=== PATIENT | male | born 1950 | race Caucasian/White ===

== ENCOUNTER 2016-11-08 13:43 | Inpatient (IN) ==
--- NOTE | 2016-11-08 14:08 | Emergency Department Note ---
Disposition Clinical Impression: Paroxysmal atrial flutter Chest pain Qualifiers: Chest pain type: unspecified Qualified Code(s): R07.9 - Chest pain, unspecified Disposition: Admitted As Inpatient Condition: Fair Forms: ED Satisfaction Letter Time of Disposition: 17:44 Chest Pain HPI - General Chief Complaint: ED Chest Pain Stated Complaint: chest pain Time Seen by Provider: 11/08/16 13:46 Source: patient, EMS Limitations: no limitations Vital Signs Reviewed: Yes Nursing Notes Reviewed: Yes - History of Present Illness HPI Narrative: 66-year-old male with a history of A. fib, esophageal cancer, liver cancer who presents from the [facility] for evaluation of atrial flutter with a rapid rate that they were unable to control with metoprolol. Patient states that his chest pain began yesterday it is left-sided and radiates up into his neck. He states that today he developed a racing heart and feeling that his heart was pounding in his neck. This is accompanied by mild shortness of breath and nausea. He denies fevers, chills, abdominal pain, leg swelling, sloan or dizziness. The patient does state he is receiving oral chemotherapy. He does have a port in the upper left chest. Severity scale (1-10): 7 - Related Data Home Medications Medication Instructions Recorded Confirmed Albuterol Sulfate 2.5 mg IH QID PRN 05/19/15 01/25/16 Budesonide/Formoterol Fumarate 2 puff IH BID 05/19/15 01/25/16 [Symbicort 160-4.5 Mcg Inhaler] Bupropion HCl [Bupropion HCl Sr] 150 mg PO BID 05/19/15 01/25/16 FentaNYL PATCH [Duragesic] 50 mcg TD Q72H 05/19/15 01/25/16 Ferrous Sulfate 325 mg PO BID 05/19/15 01/25/16 GlipiZIDE [Glucotrol] 10 mg PO BID 05/19/15 01/25/16 Isosorbide MONOnitrate (24 HR) 15 mg PO DAILY 05/19/15 01/25/16 [Imdur] Lisinopril [Zestril] 40 mg PO DAILY 05/19/15 01/25/16 Nitroglycerin [Nitrostat] 0.4 mg SL AD PRN 05/19/15 01/25/16 Potassium Chloride 10 meq PO DAILY 05/19/15 01/25/16 Rivaroxaban [Xarelto] 20 mg PO DAILY 05/19/15 01/25/16 Rosuvastatin Calcium [Crestor] 40 mg PO DAILY 05/19/15 01/25/16 Zolpidem Tartrate [Ambien] 5 mg PO HS 05/19/15 01/25/16 Albuterol Sulfate [Albuterol 2 puff IH QID PRN 11/06/15 01/25/16 Inhaler] Bisacodyl [Woman's Laxative] 20 mg PO BID 11/06/15 01/25/16 CarBAMazepine 100 mg PO TID 11/06/15 01/25/16 Cholecalciferol (D-3) [Vitamin D] 2,000 unit PO DAILY 11/06/15 01/25/16 Cyanocobalamin (B-12) [Vitamin B12] 1,000 mcg PO DAILY 11/06/15 01/25/16 Docusate Sodium [Colace] 200 mg PO BID 11/06/15 01/25/16 HydrOXYzine Pamoate 25 mg PO BID PRN 11/06/15 01/25/16 HydrOXYzine Pamoate 50 mg PO HS PRN 11/06/15 01/25/16 Tiotropium [Spiriva] 18 mcg IH DAILY 11/06/15 01/25/16 Amiodarone [Cordarone] 200 mg PO BID 01/25/16 01/25/16 Omeprazole [PriLOSEC] 20 mg PO BIDAC 01/25/16 01/25/16 Ondansetron ODT [Zofran ODT] 8 mg PO Q6H PRN 01/25/16 01/25/16 Previous Rx's Medication Instructions Recorded Capecitabine [Xeloda] 1,000 mg PO BID #56 tablet 08/22/15 Folic Acid 1 mg PO DAILY #30 tablet 10/05/15 Multivit/Ca/Min/Fe/FA [Thera M 1 tab PO DAILY tablet 10/05/15 Plus] Metoprolol XL (24 HR) Succ [Toprol 50 mg PO DAILY tab.er.24h 11/10/15 Xl] Capecitabine [Xeloda] 2 tab PO BID #56 tablet 02/09/16 Dicyclomine HCl [Bentyl] 20 mg PO BID #30 tablet 07/24/16 Hydrocodone/Acetaminophen [Penryn 1 each PO Q6HR #10 tablet 07/24/16 5-325 Tablet] Ondansetron HCl [Zofran] 4 mg PO Q6HR PRN #10 tablet 07/24/16 Allergies Allergy/AdvReac Type Severity Reaction Status Date / Time aspirin Allergy Gastrointestinal Verified 01/25/16 08:03 Upset All systems ED: reviewed and negative except as stated. Chest Pain PMH - Past Medical History Medical history: Reports: aortic aneurysm, atrial fibrillation, cancer, COPD, coronary artery disease, diabetes, GERD, hyperlipidemia, hypertension, myocardial infarction, thyroid disease Surgical history: Reports: cholecystectomy Psychiatric history: Reports: anxiety, depression - Social History Smoking Status: Current every day smoker Alcohol use: Reports: occasionally Drug use: Reports: none Physical Exam General: Alert and in no acute distress Skin: Warm, dry, intact Head: Normocephalic and atraumatic Eye: PERRLA, EOMI Neck: Supple, trachea midline and no tenderness Cardiovascular:Tachycardia, no murmur, normal perfusion, peripheral pulses equal b/l UE/LE Respiratory: mild diffuce expiratory wheezing, no respiratory distress Musculoskeletal: no calf tenderness, swelling or deformity GI: Soft, nontender, nondistended. Bowel sounds present Neuro: A&O to person, place, time and situation. No focal deficits noted on exam Psychiatric: Cooperative and appropriate mood and affect - General Limitations: no limitations General appearance: alert, in no apparent distress Course Course Narrative: 66-year-old male with a history of A. fib, [facility] complaint of chest pain and shortness of breath today. He states this morning the symptoms worsened and he developed palpitations and feeling that his neck was pounding. He states that his chest pain is on the left side and radiating to his neck. He has associated shortness of breath. Patient was evaluated at the [facility] and provided with 500 mL of normal saline and 5mg metoprolol IV. They were unable to successfully control his rate and transferred him to our emergency department for continued care. EKG shows atrial flutter with tachycardia. It is unchanged from his previous. He reports a history of A. fib and has had to be admitted in the past for rate control. He states the last time was a few years ago. He is currently getting oral chemotherapy. He does have a port in the left upper chest. On exam the patient does not appear to be in any acute distress he does have diffuse expiratory wheezing and his rate is tachycardic. With his history of cancer and A. fib along with his shortness of breath we will do a CTA to r/o PE. Labs done at the [facility] showed a creatinine of 1.22 with a GFR greater than 60. CTA negative for PE. Patient states that he is feeling better, but has episodes of palpitations. He states that he continue to cough. Discussed admission with the patient. Discussed admission with Zahira White CNP with hospitalist service who has accepted the patient for admission. I discussed the pending admission with the patient who states understanding and agreement with this plan. - Consultations Consultation #1: Discussed admission with Zahira White CNP with the Hospitalist service who has accepted the patient for admission. Time: 17:38 Vital Signs Temperature 97.6 F 11/08/16 13:44 Pulse Rate 69 11/08/16 13:44 Respiratory Rate 16 11/08/16 13:44 Blood Pressure 132/81 11/08/16 13:44 O2 Sat by Pulse Oximetry 99 11/08/16 13:44 Temperature 97.6 F 11/08/16 13:44 Pulse Rate 71 11/08/16 17:32 Respiratory Rate 18 11/08/16 17:32 Blood Pressure 144/86 11/08/16 17:32 O2 Sat by Pulse Oximetry 98 11/08/16 17:32 Oxygen Delivery Oxygen Delivery Nasal Cannula Chest Pain - Medical Records Medical records reviewed: Yes I reviewed the patient's medical records. - Lab Data Lab results reviewed: Yes I reviewed the patient's lab results. Lab results narrative: Labs from the [facility]: Troponin: 0.01 pro-BNP: 1576 Creatinine: 1.22 GFR: >60 PTT: 31.4 PT: 13.5 INR: 1.4 D dimer: 0.80 WBC: 6.3 RBC: 4.02 HGB: 15.5 HCT: 43.6 PLT: 145 - Radiology Data Radiology results reviewed: Yes I reviewed the patient's radiology results. Chest CTA 11/08/16 14:01 IMPRESSION: No pulmonary embolus is identified. No acute cardiopulmonary disease. 3 mm nodule in the right upper lobe is stable and considered benign. No suspicious nodules are appreciated. Stable 4.6 cm left thyroid nodule in a 2 year interval. It is likely benign, based on the stability. Characterization by ultrasound is suggested, per guidelines, provided below for reference. Managing Incidental Thyroid Nodule Detected at CT or MRI or US No Suspicious Findings Age > or equal to 35 years <1.5 cm - no further evaluation > or equal to 1.5 cm - thyroid ultrasound Vivi et al. Managing Incidental Thyroid Nodules Detected on Imaging: White Paper of the ACR Incidental Thyroid Findings Committee. JACR Volume 12, Number 2, November 2014 D/ / Tristin Conklin MD / Tristin Conklin MD Interpreting Provider: Tristin Conklin MD - EKG Data EKG attestation: Yes I reviewed and interpreted this EKG. Rate: tachycardia Rhythm: A. flutter Interpretation: unchanged when compared to prior tracing (date) (06/05/16)
[2016-11-08] MEDS ORDERED: Naloxone 0.4 MG/ML INJ IVP PRN (20:08)
[2016-11-08] MEDS ORDERED: Loratadine 10 MG TABLET PO PRN (20:13)
[2016-11-08] MEDS ORDERED: Nitroglycerin 0.4 MG TAB.SUBL SL PRN (20:13)
[2016-11-08] MEDS ORDERED: *HR* Dextrose 50 % in Water (Syg) 50 ML SYRINGE IVP PRN (20:19)
[2016-11-08] MEDS ORDERED: Dextrose Gel 15 GM PO PRN ×2 (20:19)
[2016-11-08] MEDS ORDERED: D5% in Water 1,000 ML IV PRN (20:19)
[2016-11-08] MEDS ORDERED: Albuterol 2.5 MG/3 ML NEBULIZER IH PRN (20:21)
--- NOTE | 2016-11-08 20:38 | Internal Med History&Physical ---
Date of Encounter: 11/08/16 Time of Encounter: 20:27 Assessment and Plan (1) Atrial fibrillation with RVR Current visit: No Status: Acute Patient has history of Afib, and is maintained on metoprolol for rate control and on Xarelto for anticoagulation. Patient presented to [facility] with HR in 150s. Rate has come down with administration of IV metoprolol and is now controlled in the 70s. Continuous equipment monitor phototypesetting Continue home dose of xarelto Increase Metoprolol to 100mg daily Echocardiogram in the morning Consult cardiology (2) Chest pain Current visit: No Status: Acute Patient with chest pain since last evening. He was found to be in Afib/ aflutter with RVT and HR in the 150s, now improved after IV metoprolol. EKG showed no changes since previous EKG. Initial troponin negative at 0.01. BNP elevated. Serial troponins Continuous equipment monitor phototypesetting Echocardiogram in the morning. Cardiology consulted. Qualifiers: Chest pain type: precordial pain Qualified Code(s): R07.2 - Precordial pain (3) Type 2 diabetes mellitus Current visit: Yes Status: Chronic diabetic diet check blood sugar ACHS Sliding scale correction dose insulin hypoglycemic protocol. Qualifiers: Diabetes mellitus complication status: without complication Diabetes mellitus oil heaterman insulin use: without nursing home use Qualified Code(s): E11.9 - Type 2 diabetes mellitus without complications (4) COPD (chronic obstructive pulmonary disease) Current visit: No Status: Chronic Patient with history of COPD. Reports new cough starting last night productive of thick sputum, and some shortness of breath. He is satting 98-99% on 2L. He does not wear oxygen at home. CTA showed no focal airspace disease or pleural effusion Duoneb treatments QIDR Albuterol nebulizer Q2hr PRN titrate oxygen to maintain oxygen saturation > 92%. Qualifiers: COPD type: chronic bronchitis Chronic bronchitis type: unspecified Qualified Code(s): J42 - Unspecified chronic bronchitis (5) DVT prophylaxis Current visit: No Status: Chronic Encourage ambulation anti-embolic stockings Patient on Xarelto for Afib anticoagulation, no need for additional pharmacologic prophylaxis. Internal Medicine - H&P: HPI Chief complaint: chest pain, fast HR Admitted From: Emergency Dept Plans for Post Hospital Care: Home History of present illness: Mr. Zapata is a 66 year old male with aortic aneurysm, COPD, type 2 diabetes, hypertension, hyperlipidemia, Liver and esophageal cancer (reportedly in remission), and Afib who presented to the [facility] with chest pain that started yesterday. He reported the chest pain is located on the left side of his chest and ran from mid abdomen all the way up to his left neck. He also developed a cough last evening productive of thick sputum, and reports some occasional shortness of breath. He reports he had an episode of lightheadedness and diaphoresis this morning that lasted a couple minutes. He also endorses feeling generalized weakness. He was found to be in Aflutter with RVR and heart rate in the 150s at the [facility]. He was given IV metoprolol and his rate came down to 70s. EKG showed no changed from previous EKG in May. Troponin was negative at 0.01. He was transferred to [facility]. A CT PE was performed due to patient's new cough and shortness of breath, but it was negative for PE. On exam, patient is alert and oriented, in no distress. He denies any current chest pain. Heart is irregular, with controlled rate in 70s. Lungs have expiratory wheeze. Past Med Surg Social Fam HX - Past Medical History Medical history: aortic aneurysm, atrial fibrillation, cancer, COPD, coronary artery disease, diabetes, GERD, hyperlipidemia, hypertension, myocardial infarction, thyroid disease Psychiatric history: anxiety, depression - Past Surgical History Surgical History: cholecystectomy, orthopedic, other (carpal tunnel) - Social History Smoking Status: Current every day smoker (50 pack year history) Packs per day: 1 Smokeless Tobacco Status: No Alcohol use: occasionally Drug use: none - Family History Mother Living Status: Age at : 78 Cause of : diabetis Hx Family Endocrine Disorder: Yes Father Adopted: No Living Status: Age at : 80 Hx Family Cardiac Disorders: Yes Hx Family Respiratory Disorders: Yes Hx Family Cancer: Yes (Lung, Breast, Reproductive Cancer) Hx Family GI Disorders: No Hx Family Endocrine Disorder: Yes Hx Family Neuromuscular Disorders: No Hx Family Neurologic Disorders: No Hx Family HEENT Disorders: No Hx Family Autoimmune Disorders: No Internal Medicine - H&P: Meds Albuterol Sulfate 2.5 mg IH QID PRN 05/19/15 [History] Bupropion HCl [Bupropion HCl Sr] 150 mg PO BID 05/19/15 [History] Ferrous Sulfate 325 mg PO BID 05/19/15 [History] GlipiZIDE [Glucotrol] 10 mg PO BID 05/19/15 [History] Isosorbide MONOnitrate (24 HR) [Imdur] 15 mg PO DAILY 05/19/15 [History] Nitroglycerin [Nitrostat] 0.4 mg SL Q5M PRN 05/19/15 [History] Potassium Chloride 10 meq PO DAILY 05/19/15 [History] Rivaroxaban [Xarelto] 20 mg PO DAILY 05/19/15 [History] Zolpidem Tartrate [Ambien] 5 mg PO HS PRN 05/19/15 [History] Capecitabine [Xeloda] 1,000 mg PO BID #56 tablet 08/22/15 [Rx] Albuterol Sulfate [Albuterol Inhaler] 2 puff IH QID PRN 11/06/15 [History] Cholecalciferol (D-3) [Vitamin D] 2,000 unit PO DAILY 11/06/15 [History] Docusate Sodium [Colace] 200 mg PO BID 11/06/15 [History] Metoprolol XL (24 HR) Succ [Toprol Xl] 50 mg PO DAILY tab.er.24h 11/10/15 [Rx] Omeprazole [PriLOSEC] 20 mg PO DAILY PRN 01/25/16 [History] Acetaminophen [Tylenol] 1,000 mg PO DAILY PRN 11/08/16 [History] Alendronate Sodium [Fosamax] 70 mg PO QWEEK 11/08/16 [History] Aspirin 81 mg PO DAILY 11/08/16 [History] Bisacodyl [Dulcolax] 30 mg PO QPM PRN 11/08/16 [History] Calcium Carbonate/Vitamin D3 [Calcium 500-Vit D3 200 Tablet] 1 each PO BID 11/08 [History] Carboxymethylcellulose Sodium [Refresh Liquigel] 1 drop BOTH EYES TID 11/08/16 [ History] Cetirizine HCl [Zyrtec] 10 mg PO DAILY PRN 11/08/16 [History] Finasteride [Proscar] 5 mg PO DAILY 11/08/16 [History] Heparin Sodium,Porcine/PF [Heparin Lock Flush 100 Unit/ml] 500 unit IVP QMONTH 11/08/16 [History] Ketoconazole 2% CRM [Nizoral Cream] 1 appl TP BID PRN 11/08/16 [History] Lidocaine Patch [Lidoderm 5% patch] 1 each TP DAILY PRN 11/08/16 [History] Lisinopril 2.5 mg PO BID 11/08/16 [History] Methocarbamol [Robaxin] 750 mg PO QID PRN 11/08/16 [History] Ondansetron HCl [Zofran] 8 mg PO BID PRN 11/08/16 [History] Rosuvastatin Calcium [Crestor] 10 mg PO DAILY 11/08/16 [History] Saliva Substitute Combo No.3 [Aquoral] 3 - 5 spray MM DAILY PRN 11/08/16 [ History] Tamsulosin [Flomax] 0.4 mg PO DAILY 11/08/16 [History] Allergies aspirin Allergy (Verified 01/25/16 08:03) Gastrointestinal Upset dofetilide [From Tikosyn] Adverse Reaction (Verified 11/08/16 18:46) Unknown Per [facility] med list All Systems PM: A 10-system review of systems was performed and is negative for pertinent findings except as documented above in the HPI. - Constitutional Constitutional: no chills, no fever(s), no night sweats - EENT Eyes: discharge (watery), no change in vision, no pain, no photophobia Ears: no ear discharge, no ear pain, no tinnitus Nose, mouth and throat: nasal discharge, no dysphagia, no neck pain, no sore throat - Cardiovascular Cardiovascular ROS IM: chest pain, diaphoresis, dyspnea, dyspnea on exertion, lightheadedness, no palpitations, no syncope - Respiratory Respiratory: cough, dyspnea, dyspnea on exertion, no wheezing, no excessive phlegm production - Gastrointestinal Gastrointestinal: no abdominal pain, no diarrhea, no hematemesis, no hematochezia, no melena, no nausea, no vomiting - Musculoskeletal Musculoskeletal ROS IM: no numbness, no tingling - Integumentary Integumentary IM: no rash, no unusual bruising - Neurological Neurological ROS: no confusion, no convulsions, no focal weakness, no numbness, no tingling, no tremor(s) - Hematologic/Lymphatic Hematologic/Lymphatic: no easy bruising - Constitutional Vitals: Temp Pulse Resp BP Pulse Ox 998.1 F H 69 22 137/72 98 11/08/16 19:23 11/08/16 19:23 11/08/16 19:23 11/08/16 19:23 11/08/16 19:23 General appearance: Present: A&O X 3, no acute distress - Head Head exam: Present: atraumatic, normocephalic - Eye Eye exam: Present: PERRL, conjuntiva pink, sclera anicteric Pupils: Present: PERRL - Neck Neck exam general surgery: Present: supple, trachea midline. Absent: lymphadenopathy - Respiratory Respiratory exam: Present: wheezes (mild expiratory). Absent: accessory muscle use, rales, rhonchi - Cardiovascular Cardiovascular exam: Present: irregular rhythm, +S1, +S2. Absent: diastolic murmur, gallop, rubs, systolic murmur, tachycardia - GI/Abdominal GI/Abdominal exam: Present: normal bowel sounds, soft, no peritoneal signs. Absent: distended, tenderness - Extremities Exam Extremities exam: Present: warm, radial pulses palpable and symetrical. Absent : calf tenderness, cyanotic, pedal edema - Neurological Exam Neurological exam: Present: CN II-XII intact, oriented X3, no focal deficits. Absent: pronater drift, facial droop, speech deficit - Skin Skin exam: Present: dry, intact Internal Med - H&P Results - Labs Labs: Labs from [facility]: Troponin 0.01 BNP 1576 CK 66 D-Dimer 0.80 AST 9 ALT 18 Total bili 0.6 Alk phos 82 Ca 8.4 total protein 5.9 albumin 3.5 Mg 2.2 Na 139 K 3.8 Cl 105 CO2 26 Glucose 251 BUN 13 Cr 1.22 PTT 31.4 INR 1.4 PT 13.5 WBC 6.3 Hgb 15.5 Hct 43.6 Plt 145
[2016-11-08] MEDS: BuPROPion SR (12 HR) 150 MG TABLET PO SCH (21:23)
[2016-11-08] MEDS: (Calcium Carbonate/Vitamin D3 [Calcium 500-Vit D3 200 PO SCH (21:25)
[2016-11-08] MEDS: Insulin LISPRO 300 UNITS/3 ML VIAL SQ SCH (21:25)
[2016-11-08] MEDS: Ipratropium/Albuterol Neb 3 ML IH SCH (22:16)
[2016-11-09 01:32] LABS: Basophils # 0.1 K/mcL (0.0-0.2); Basophils % 0.6 %; Eosinophils # 0.1 K/mcL (0.0-0.6); Eosinophils % 1.4 %; Hematocrit 42.9 % (37.5-50.1); Hemoglobin 14.9 g/dL (12.9-16.9); Immature Granulocytes % 0.2 % (0-4); Lymphocytes # 1.6 K/mcL (0.6-4.6); Lymphocytes % 18.6 %; Mean Corpuscular HGB Conc 34.7 g/dL (31.6-35.5); Mean Corpuscular Hemoglobin 38.5 pg (28.0-33.3); Mean Corpuscular Volume 110.9 fL (83.0-100.0); Mean Platelet Volume 8.7 fL (9.4-12.4); Monocytes # 0.7 K/mcL (0.0-1.3); Monocytes % 8.3 %; Neutrophils # 6.1 K/mcL (1.6-8.9); Platelet Count 160 K/mcL (140-400); Red Blood Count 3.87 M/mcL (4.19-5.50); Red Cell Distribution Width 14.5 % (11.5-14.5); Segmented Neutrophils % 70.9 %
[2016-11-09 01:49] LABS: BUN/Creatinine Ratio 13 (6-26); Blood Urea Nitrogen 14 mg/dL (8-26); Calcium 9.2 mg/dL (8.6-10.8); Carbon Dioxide 20 mEq/L (19-29); Chloride 106 mEq/L (98-109); Chol/HDL Ratio 2.7 (0-4.9); Cholesterol 138 mg/dL (< 200); Glucose 108 mg/dL (70-99); HDL Cholesterol 52 mg/dL (40-59); LDL Cholesterol,Calculated 52 mg/dL (0-99); Osmolality,Calculated 287 (280-300); Potassium 4.2 mEq/L (3.5-4.5); Sodium 138 mEq/L (136-145); Triglycerides 170 mg/dL (< 150); eGFR For African Americans > 60 (> 60); eGFR For Non-African Americans > 60 (> 60)
[2016-11-09] MEDS ORDERED: *HR* Morphine 2 MG/ML SYRINGE IVP PRN (01:49)
[2016-11-09 01:59] LABS: Macrocytosis Present (Not Present); Platelet Estimate Normal (Normal); Stomatocytes 1+ (Not Present)
[2016-11-09 02:10] LABS: Thyroid Stimulating Hormone 0.491 mcIU/mL (0.350-4.840)
[2016-11-09] MEDS: Ipratropium/Albuterol Neb 3 ML IH SCH ×4 (04:56→23:45)
[2016-11-09] MEDS ORDERED: Metoprolol XL (24 HR) Succ 50 MG TAB.ER.24H PO SCH (09:00)
[2016-11-09] MEDS: *HR* Rivaroxaban 10 MG TABLET PO SCH (09:48)
[2016-11-09] MEDS: Isosorbide MONOnitrate (24 HR) 30 MG TAB.ER.24H PO SCH (09:48)
[2016-11-09] MEDS: BuPROPion SR (12 HR) 150 MG TABLET PO SCH ×2 (09:50→20:19)
[2016-11-09] MEDS: Cholecalciferol (D-3) 1,000 UNIT TABLET PO SCH (09:50)
[2016-11-09] MEDS: Metoprolol XL (24 HR) Succ 50 MG TAB.ER.24H PO SCH (09:51)
[2016-11-09] MEDS: Aspirin 81 MG TAB.CHEW PO SCH (09:51)
[2016-11-09] MEDS: Finasteride 5 MG TABLET PO SCH (09:53)
--- NOTE | 2016-11-09 10:52 | Cardiology Consult Note ---
Date of Encounter: 11/09/16 Time of Encounter: 10:49 Assessment and Plan (1) Paroxysmal atrial flutter Current Visit: Yes Status: Acute Presented with atrial flutter with RVR. Known history of atrial flutter. He is status post afib ablation in February 2016. Ports recurrent palpitations starting in August 2016. He was following with a fish house worker at [facility]. He is recommended for repeat afib/aflutter ablation. He has hesitant to proceed. Agree with increasing beta catherine. Heart rate is now controlled. Currently on Xarelto for anticoagulation. I will discuss possible DCCV vs rate control with Dr. Davila. (2) Atrial fibrillation Current Visit: No Status: Acute S/p afib ablation in February 2016. Allergy to tikosyn. Previously on amiodarone after ablation. Discontinued at [place]. Pt would like to continue to follow with Dr. Vish Butterfield. Qualifiers: Atrial fibrillation type: paroxysmal Qualified Code(s): I48.0 - Paroxysmal atrial fibrillation (3) Chest pain Current Visit: Yes Status: Acute Atypical chest pain. Likely secondary to a flutter with RVR. Troponins are negative 3. [facility] in 2013 showed minimal CAD. Check TTE. Qualifiers: Qualified Code(s): R07.9 - Chest pain, unspecified Discussion w patient/family: The assessment and plan as outlined above was discussed with the patient and/or family members who expressed understanding and agreement. All questions were answered. Thank you for involving us in the care of your patient. Please call with any questions. History of Present Illness Consult date: 11/09/16 Requesting physician: Isacc Cardona Consult reason: Chest pain, aflutter with RVR Chief complaint: left sided chest pain and palpitations. History of present illness: Mr. Zapata is a 66 year old male with a past medical history of afib/atrial flutter status post ablation in 2016, previous NM, hypertension, DM type II, and head and neck cancer. He presented to the [facility] with a complain of left-sided chest pain radiating to his neck. He complains of intermittent chest pain with moving his left arm. His pain has been ongoing since . He does have an [id number] in his left shoulder and occasionally has pain around the site. He also admits to intermittent midsternal fluttering. He was found to be in atrial flutter with RVR rate 120s to 130s. He was given a IV dose of metoprolol with no improvement in HR. He was transferred to [facility] for further evaluation. Here at [place] his metoprolol was increased from 50 mg daily 100 mg. He is now running in the 70s, atrial flutter. He is status post afib ablation in February 2016. He reports having recurrent Afib/atrial flutter starting in August last year. He was seen at [facility] and recommended to have a repeat ablation. He has been considering this. He has also been trying to obtain an appointment with his electrophysiologists to discuss further. He currently denies chest pain. He reports a history of NM. He underwent LHC in 2013 that showed minimal CAD. Past Med Surg Social Fam HX - Past Medical History Medical history: aortic aneurysm, atrial fibrillation, cancer, COPD, diabetes, GERD, hyperlipidemia, hypertension, myocardial infarction, thyroid disease Psychiatric history: anxiety, depression - Past Surgical History Surgical History: cholecystectomy, orthopedic, other (carpal tunnel) - Social History Smoking Status: Current every day smoker (50 pack year history) Packs per day: 1 Smokeless Tobacco Status: No Alcohol use: occasionally Drug use: none - Family History Mother Living Status: Age at : 78 Cause of : diabetis Hx Family Endocrine Disorder: Yes Father Adopted: No Living Status: Age at : 80 Hx Family Cardiac Disorders: Yes Hx Family Respiratory Disorders: Yes Hx Family Cancer: Yes (Lung, Breast, Reproductive Cancer) Hx Family GI Disorders: No Hx Family Endocrine Disorder: Yes Hx Family Neuromuscular Disorders: No Hx Family Neurologic Disorders: No Hx Family HEENT Disorders: No Hx Family Autoimmune Disorders: No Medications and Allergies Albuterol Sulfate 2.5 mg IH QID PRN 05/19/15 [History] Bupropion HCl [Bupropion HCl Sr] 150 mg PO BID 05/19/15 [History] Ferrous Sulfate 325 mg PO BID 05/19/15 [History] GlipiZIDE [Glucotrol] 10 mg PO BID 05/19/15 [History] Isosorbide MONOnitrate (24 HR) [Imdur] 15 mg PO DAILY 05/19/15 [History] Nitroglycerin [Nitrostat] 0.4 mg SL Q5M PRN 05/19/15 [History] Potassium Chloride 10 meq PO DAILY 05/19/15 [History] Rivaroxaban [Xarelto] 20 mg PO DAILY 05/19/15 [History] Zolpidem Tartrate [Ambien] 5 mg PO HS PRN 05/19/15 [History] Capecitabine [Xeloda] 1,000 mg PO BID #56 tablet 08/22/15 [Rx] Albuterol Sulfate [Albuterol Inhaler] 2 puff IH QID PRN 11/06/15 [History] Cholecalciferol (D-3) [Vitamin D] 2,000 unit PO DAILY 11/06/15 [History] Docusate Sodium [Colace] 200 mg PO BID 11/06/15 [History] Metoprolol XL (24 HR) Succ [Toprol Xl] 50 mg PO DAILY tab.er.24h 11/10/15 [Rx] Omeprazole [PriLOSEC] 20 mg PO DAILY PRN 01/25/16 [History] Acetaminophen [Tylenol] 1,000 mg PO DAILY PRN 11/08/16 [History] Alendronate Sodium [Fosamax] 70 mg PO QWEEK 11/08/16 [History] Aspirin 81 mg PO DAILY 11/08/16 [History] Bisacodyl [Dulcolax] 30 mg PO QPM PRN 11/08/16 [History] Calcium Carbonate/Vitamin D3 [Calcium 500-Vit D3 200 Tablet] 1 each PO BID 11/08 [History] Carboxymethylcellulose Sodium [Refresh Liquigel] 1 drop BOTH EYES TID 11/08/16 [ History] Cetirizine HCl [Zyrtec] 10 mg PO DAILY PRN 11/08/16 [History] Finasteride [Proscar] 5 mg PO DAILY 11/08/16 [History] Heparin Sodium,Porcine/PF [Heparin Lock Flush 100 Unit/ml] 500 unit IVP QMONTH 11/08/16 [History] Ketoconazole 2% CRM [Nizoral Cream] 1 appl TP BID PRN 11/08/16 [History] Lidocaine Patch [Lidoderm 5% patch] 1 each TP DAILY PRN 11/08/16 [History] Lisinopril 2.5 mg PO BID 11/08/16 [History] Methocarbamol [Robaxin] 750 mg PO QID PRN 11/08/16 [History] Ondansetron HCl [Zofran] 8 mg PO BID PRN 11/08/16 [History] Rosuvastatin Calcium [Crestor] 10 mg PO DAILY 11/08/16 [History] Saliva Substitute Combo No.3 [Aquoral] 3 - 5 spray MM DAILY PRN 11/08/16 [ History] Tamsulosin [Flomax] 0.4 mg PO DAILY 11/08/16 [History] Allergies aspirin Allergy (Verified 01/25/16 08:03) Gastrointestinal Upset dofetilide [From Tikosyn] Adverse Reaction (Verified 11/08/16 18:46) Unknown [facility] All Systems Review: A 10-system review of systems was performed and is negative for pertinent findings except as documented above in the HPI. Physical Examination Vital Signs, Last 4 Hours Temp Pulse Resp BP Pulse Ox 11/09/16 07:00 98.2 F 70 15 148/90 96 General: Conversant, No Apparent Distress HEENT: Atraumatic, Normocephaly, Mucus Membranes Moist Neck: No JVD, Normal carotid pulses Cardiac: Other (Minimal CAD) Lungs: Normal Breath Sounds, No Wheeze, Rales, Rhonchi Neuro: Alert and responsive, No focal deficits noted Abdomen: Soft, Non-Tender Skin: No rashes noted on visualized skin Musculoskeletal: No Chest Wall Tenderness Extremities: No Clubbing, No Cyanosis, No Edema, Normal Pulses Results 11/09/16 00:56 11/09/16 00:56 Lab Results 11/09/16 11/09/16 11/09/16 00:56 00:56 00:56 WBC 8.6 Hgb 14.9 Hct 42.9 Plt Count 160 Sodium 138 Potassium 4.2 Chloride 106 Carbon Dioxide 20 BUN 14 Creatinine 1.09 Glucose 108 H Calcium 9.2 Troponin I 0.00 TSH 0.491 11/09/16 04:13 WBC Hgb Hct Plt Count Sodium Potassium Chloride Carbon Dioxide BUN Creatinine Glucose Calcium Troponin I 0.00 TSH - Imaging and Cardiology Echo: report reviewed (2014EF 50-55%. No pulmonary hypertension. Limited study.) Cardiac cath: report reviewed (2014minimal CAD, EF 55%.) - EKG Interpretation EKG results cardiology: personally reviewed (Atrial flutter.), other (24 hour telemetry review shows atrial flutter with an average heart rate of 75 bpm. Maximum heart rate was 130 bpm at 10 PM. No significant bradycardia seen.) Consult Discharge Plan - Plan [facility]errals: [facility] [Primary Care Provider] -
--- NOTE | 2016-11-09 12:18 | Internal Med Progress Note ---
<Dewayne Nicholas - Last Filed: 11/09/16 12:16> Date of Encounter: 11/09/16 Time of Encounter: 10:00 - Assessment and plan (1) Atrial fibrillation with RVR Current Visit: No Status: Acute Assessment and plan: Mr. Zapata presented to the hospital with palpitations and chest pain and palpitations. He was found to be in atrial fibrillation with RVR. He was given a dose of metoprolol that resulted in rate control. His rhythm converted to atrial flutter and now in NSR with abnormal P-wave concerning for atrial enlargement. He is on the Xarelto, home medication for his anticoagulation. Cardiology has seen and evaluated the patient. - He has been followed by cardiology at [facility] and it is recommended for repeat A. fib/A flutter ablation for which he is still hesitant. Plan: - Continue Toprol-XL 100 mg by mouth daily - Continue home dose Xarelto for anticoagulation. (2) Chest pain Current Visit: Yes Status: Acute Assessment and plan: Atypical chest pain. Likely secondary to a flutter with RVR. Troponin levels have been 0.26, 0.25 and 0.12. LHC in 2013 showed minimal CAD. Echocardiogram from 09/12/2015 demonstrates LVEF 50-55%, no pulmonary hypertension, technically suboptimal due to body habitus. Carotid duplex from 10/02/2015 was essentially normal findings. 01/25/2016 patient underwent successful ablation of atrial flutter. Plan: -Continue beta catherine, sublingual nitroglycerin, oxygens, aspirin 81 mg, home dose Imdur - It has been over a year since the patient's last echocardiogram, TTE has been ordered by cardiology. Qualifiers: Qualified Code(s): R07.9 - Chest pain, unspecified (3) Type 2 diabetes mellitus Current Visit: Yes Status: Chronic Assessment and plan: Patient is a type II diabetic glucoses currently stable. Plan: -Monitor inpatients ACTH glucose checks, continue low-dose sliding scale. Qualifiers: Diabetes mellitus complication status: without complication Diabetes mellitus [employer] insulin use: without group home use Qualified Code(s): E11.9 - Type 2 diabetes mellitus without complications (4) COPD (chronic obstructive pulmonary disease) Current Visit: No Status: Chronic Assessment and plan: Known history of COPD which is currently stable. Plan: -Continue home dose inhalers - Dual nebs when necessary Qualifiers: COPD type: chronic bronchitis Chronic bronchitis type: unspecified Qualified Code(s): J42 - Unspecified chronic bronchitis (5) HTN (hypertension) Current Visit: No Status: Chronic Assessment and plan: Patient has known history of hypertension with current blood pressure 143/76. Plan: -Continue lisinopril 2.5 mg by mouth twice a day, Toprol-XL 100 mg by mouth daily -Continue monitoring every shift blood pressures. Qualifiers: Hypertension type: essential hypertension Qualified Code(s): I10 - Essential (primary) hypertension - Subjective Interval history: Mr. Zapata 66-year-old male has been seen and evaluated patient bedside and snoring. He says that he is feeling great compared to admission. In that he has occasional feelings of palpitations but nothing like he fell upon presentation. He is alert awake interactive in no acute distress, conversing appropriately. He felt that his symptoms were concerning at the time of admission and mentions that he has had difficulty controlling his rhythm. He has had an ablation in the past and said he would like to see Dr. Butterfield for further recommendations and potential ablation. He mentions in the past he has had hypertensive emergency when his blood pressure is not well controlled or when he has abdominal pain. He denies abdominal pain at this time. He denies any blurriness in his vision, headaches, neck pain, shortness of breath, chest pain or palpitations, abdominal pain, nausea, vomiting, diarrhea or constipation or swelling in his extremities. - Constitutional Vitals: Temp Pulse Resp BP Pulse Ox 98.3 F 61 15 143/76 97 11/09/16 11:00 11/09/16 11:00 11/09/16 11:00 11/09/16 11:00 11/09/16 11:00 General appearance: Present: cooperative, A&O X 3, pleasant, no acute distress - Head Head exam: Present: atraumatic, normocephalic - Eye Eye exam: Present: PERRL, conjuntiva pink, sclera anicteric Pupils: Present: PERRL - Neck Neck exam general surgery: Present: supple, trachea midline. Absent: lymphadenopathy - Respiratory Respiratory exam: Present: CTAB. Absent: accessory muscle use, rales, rhonchi, wheezes - Cardiovascular Cardiovascular exam: Present: irregular rhythm - GI/Abdominal GI/Abdominal exam: Present: normal bowel sounds, soft, no peritoneal signs. Absent: distended, tenderness - Extremities Exam Extremities exam: Present: warm, radial pulses palpable and symetrical. Absent : pedal edema - Neurological Exam Neurological exam: Present: alert, no focal deficits, strengths equal and symetr throughout - Psychiatric Psychiatric exam: Present: normal affect, normal mood Internal Medicine: Result - Labs CBC & Chem 7: 11/09/16 00:56 11/09/16 00:56 Labs: Short CBC 11/09/16 Range/Units 00:56 WBC 8.6 (4.3-11.1) K/mcL Hgb 14.9 (12.9-16.9) g/dL Hct 42.9 (37.5-50.1) % Plt Count 160 (140-400) K/mcL Neutrophils # 6.1 (1.6-8.9) K/mcL BMP 11/09/16 00:56 Sodium 138 Potassium 4.2 Chloride 106 Carbon Dioxide 20 BUN 14 Creatinine 1.09 Glucose 108 H Calcium 9.2 Cardiac Enzymes 11/09/16 11/09/16 Range/Units 00:56 04:13 Troponin I 0.00 0.00 (0-0.03) ng/mL Consult Discharge Plan - Plan [facility]errals: [facility] [Primary Care Provider] - <Isacc Cardona - Last Filed: 11/09/16 18:12> Date of Encounter: 11/09/16 - Assessment and plan (1) Atrial flutter Current Visit: Yes Status: Acute Qualifiers: Atrial flutter type: typical Qualified Code(s): I48.3 - Typical atrial flutter (2) Chest pain Current Visit: Yes Status: Acute Qualifiers: Chest pain type: precordial pain Qualified Code(s): R07.2 - Precordial pain (3) Diabetes mellitus Current Visit: No Status: Acute Qualifiers: Diabetes mellitus type: type 2 Diabetes mellitus complication status: without complication Diabetes mellitus [employer] insulin use: without [employer] use Qualified Code(s): E11.9 - Type 2 diabetes mellitus without complications (4) Hypothyroidism Current Visit: No Status: Acute Qualifiers: Hypothyroidism type: other Qualified Code(s): E03.8 - Other specified hypothyroidism (5) COPD (chronic obstructive pulmonary disease) Current Visit: No Status: Chronic Qualifiers: COPD type: chronic bronchitis Chronic bronchitis type: simple Qualified Code(s): J41.0 - Simple chronic bronchitis (6) Coronary artery disease Current Visit: No Status: Chronic Qualifiers: Coronary Disease-Associated Artery/Lesion type: [place] artery [place] vs. transplanted heart: [place] heart Associated angina: without angina Qualified Code(s): I25.10 - Atherosclerotic heart disease of [place] coronary artery without angina pectoris - Constitutional Vitals: Temp Pulse Resp BP Pulse Ox 98.4 F 72 18 115/62 97 11/09/16 15:00 11/09/16 15:00 11/09/16 15:58 11/09/16 15:00 11/09/16 15:58 Internal Medicine: Result - Labs CBC & Chem 7: 11/09/16 00:56 11/09/16 00:56 Labs: Short CBC 11/09/16 Range/Units 00:56 WBC 8.6 (4.3-11.1) K/mcL Hgb 14.9 (12.9-16.9) g/dL Hct 42.9 (37.5-50.1) % Plt Count 160 (140-400) K/mcL Neutrophils # 6.1 (1.6-8.9) K/mcL BMP 11/09/16 00:56 Sodium 138 Potassium 4.2 Chloride 106 Carbon Dioxide 20 BUN 14 Creatinine 1.09 Glucose 108 H Calcium 9.2 Cardiac Enzymes 11/09/16 11/09/16 Range/Units 00:56 04:13 Troponin I 0.00 0.00 (0-0.03) ng/mL - Attending Attestation I examined this patient and my medical decision-making was reviewed with the Resident Physician on 11/09/16. I agree with the documented findings, disposition and treatment plan as described except to the extent set forth below. Mr. Zapata is currently admitted for rapid atrial fibrillation and chest pain. He is moderate to high risk due to the significance of his atrial fibrillation and prior history of ablation and antiarrythmics. Mr. Zapata is feeling OK. No pain currently. He is alternating between a flutter and sinus rhythm. No GI symptoms. No dyspnea at this time. Exam Alert. Comfortable Heart irreg no wheeze I/P 1. Parox a fib with RVR 2. chest pain 3. Diabetes Further diagnoses and plan as above Cardiology consulted and managing his atrial flutter.
[2016-11-09] MEDS: Insulin LISPRO 300 UNITS/3 ML VIAL SQ SCH ×4 (12:55→21:58)
--- NOTE | 2016-11-09 13:18 | ECHO - Doppler Report ---
Echocardiogram Name: Stew Zapata Date of Study: 11/09/2016 Date: 1950 Ht: 70.0 in Medical Record#: [id number] Age: 66 Wt: 211.0 lb Gender: Male BSA: 2.14 Order #: [id number] Location: [facility] Room #: [id number] Reading Physician: Javier Davila MD, [facility] Filler Feeder: Alicia Mccall Ordering Physician: Pat Quinonez CNP Primary Physician: [facility] Indications: Chest pain, Elevated BNP, Afib w/RVR Impressions: Patient was in atrial flutter throughout most of the study, then converted to sinus rhythm at the end of the study. Normal left ventricular size and systolic function, LVEF 55%. Normal right ventricular size and function. No significant valvular dysfunction. No evidence of pulmonary hypertension. Left Ventricular Wall Motion: Rest Echo Findings All wall segments showed normal motion. Findings: Study Quality * Suboptimal echo windows. ECG Findings * Patient was in atrial flutter throughout most of the study, then converted to sinus rhythm at the end of the study. Left Ventricle * Normal left ventricular size and systolic function, LVEF 55%. * Normal LV wall thickness. * Indeterminate diastolic function. Right Ventricle * Normal right ventricular size and function. Left Atrium * Normal left atrial size. Right Atrium * Normal right atrial size. Aorta * Normally sized aortic root. Pericardium * There is no pericardial effusion present. IVC * The IVC is not dilated. Aortic Valve * Aortic valve not well visualized. Appears trileaflet with mild sclerosis. * No aortic stenosis. * Trace aortic regurgitation. Mitral Valve * Mild mitral annular calcification. * No mitral stenosis. * Trace mitral regurgitation. Tricuspid Valve * Normal tricuspid valve structure. * No tricuspid stenosis. * Trace tricuspid regurgitation. * No evidence of pulmonary hypertension. Pulmonic Valve * Pulmonic valve not well visualized. * No pulmonic stenosis. * No pulmonic regurgitation. History Hypertension Diabetes Hypercholesteremia History of Smoking Years 50 Packs 2.5 Family History of CAD History of CAD/PTCA Myocardial Infarction a Previous Echo was performed. Measurements: BP: 150/ 90 2D Normal Values RVIDd: 3.20 cm IVSd: 1.00 cm 0.6 - 1.0 cm LVIDd: 5.00 cm 3.7 - 5.6 cm LVPWd: .90 cm 0.6 - 1.1 cm LVIDs: 3.60 cm 1.5 - 3.6 cm AO: 3.50 cm < 4.0 cm LA volume: 51 Tricuspid Valve TV Regurg Peak Grad: 22.00mmHg TV Regurg Peak Nader: 2.32m/sec Updated by Javier Davila MD, [facility] on 11/09/2016 1:14:13 PM electronically signed on 11/09/2016 1:15:15 PM with status of Final Wall Motion Awad: 1=Normal, 2=Hypokinesis, 3=Akinesis, 4=Dyskinesis, 5=Aneurysmal, 6=Hyperkinetic, X=Not Visualized (Blank)=Missing
[2016-11-09] MEDS: (Calcium Carbonate/Vitamin D3 [Calcium 500-Vit D3 200 PO SCH ×2 (16:55→20:23)
[2016-11-10] MEDS: Ipratropium/Albuterol Neb 3 ML IH SCH ×2 (04:43→10:43)
[2016-11-10 07:49] VITALS: BP 157/79
[2016-11-10] MEDS: Cholecalciferol (D-3) 1,000 UNIT TABLET PO SCH (08:22)
[2016-11-10] MEDS: Aspirin 81 MG TAB.CHEW PO SCH (08:24)
[2016-11-10] MEDS: BuPROPion SR (12 HR) 150 MG TABLET PO SCH (08:24)
[2016-11-10] MEDS: Isosorbide MONOnitrate (24 HR) 30 MG TAB.ER.24H PO SCH (08:24)
[2016-11-10] MEDS: Metoprolol XL (24 HR) Succ 50 MG TAB.ER.24H PO SCH (08:25)
[2016-11-10] MEDS: *HR* Rivaroxaban 10 MG TABLET PO SCH (08:25)
[2016-11-10] MEDS: Finasteride 5 MG TABLET PO SCH (08:26)
[2016-11-10] MEDS: (Calcium Carbonate/Vitamin D3 [Calcium 500-Vit D3 200 PO SCH (08:26)
[2016-11-10] MEDS: Insulin LISPRO 300 UNITS/3 ML VIAL SQ SCH ×2 (08:31→11:59)
--- NOTE | 2016-11-10 14:06 | Discharge Summary ---
<Dewayne Nicholas - Last Filed: 11/10/16 14:13> Date of Encounter: 11/10/16 Time of Encounter: 09:00 - Discharge Diagnosis (1) Atrial fibrillation with RVR Priority: Primary Status: Acute (2) Chest pain Priority: Primary Status: Acute Qualifiers: Chest pain type: precordial pain Qualified Code(s): R07.2 - Precordial pain (3) Type 2 diabetes mellitus Priority: Secondary Status: Chronic Qualifiers: Diabetes mellitus complication status: without complication Diabetes mellitus superintendent container terminal insulin use: without prison use Qualified Code(s): E11.9 - Type 2 diabetes mellitus without complications (4) COPD (chronic obstructive pulmonary disease) Priority: Secondary Status: Chronic Qualifiers: COPD type: chronic bronchitis Chronic bronchitis type: simple Qualified Code(s): J41.0 - Simple chronic bronchitis (5) HTN (hypertension) Priority: Secondary Status: Chronic Qualifiers: Hypertension type: essential hypertension Qualified Code(s): I10 - Essential (primary) hypertension - Discharge Medications Prescriptions: Metoprolol XL (24 HR) Succ [Toprol Xl] 100 mg PO DAILY #60 tab.er.24h Home Medications: Albuterol Sulfate 2.5 mg IH QID PRN 05/19/15 [History] Bupropion HCl [Bupropion HCl Sr] 150 mg PO BID 05/19/15 [History] Ferrous Sulfate 325 mg PO BID 05/19/15 [History] GlipiZIDE [Glucotrol] 10 mg PO BID 05/19/15 [History] Isosorbide MONOnitrate (24 HR) [Imdur] 15 mg PO DAILY 05/19/15 [History] Nitroglycerin [Nitrostat] 0.4 mg SL Q5M PRN 05/19/15 [History] Potassium Chloride 10 meq PO DAILY 05/19/15 [History] Rivaroxaban [Xarelto] 20 mg PO DAILY 05/19/15 [History] Zolpidem Tartrate [Ambien] 5 mg PO HS PRN 05/19/15 [History] Capecitabine [Xeloda] 1,000 mg PO BID #56 tablet 08/22/15 [Rx] Albuterol Sulfate [Albuterol Inhaler] 2 puff IH QID PRN 11/06/15 [History] Cholecalciferol (D-3) [Vitamin D] 2,000 unit PO DAILY 11/06/15 [History] Docusate Sodium [Colace] 200 mg PO BID 11/06/15 [History] Omeprazole [PriLOSEC] 20 mg PO DAILY PRN 01/25/16 [History] Acetaminophen [Tylenol] 1,000 mg PO DAILY PRN 11/08/16 [History] Alendronate Sodium [Fosamax] 70 mg PO QWEEK 11/08/16 [History] Aspirin 81 mg PO DAILY 11/08/16 [History] Bisacodyl [Dulcolax] 30 mg PO QPM PRN 11/08/16 [History] Calcium Carbonate/Vitamin D3 [Calcium 500-Vit D3 200 Tablet] 1 each PO BID 11/08 [History] Carboxymethylcellulose Sodium [Refresh Liquigel] 1 drop BOTH EYES TID 11/08/16 [ History] Cetirizine HCl [Zyrtec] 10 mg PO DAILY PRN 11/08/16 [History] Finasteride [Proscar] 5 mg PO DAILY 11/08/16 [History] Heparin Sodium,Porcine/PF [Heparin Lock Flush 100 Unit/ml] 500 unit IVP QMONTH 11/08/16 [History] Ketoconazole 2% CRM [Nizoral Cream] 1 appl TP BID PRN 11/08/16 [History] Lidocaine Patch [Lidoderm 5% patch] 1 each TP DAILY PRN 11/08/16 [History] Lisinopril 2.5 mg PO BID 11/08/16 [History] Methocarbamol [Robaxin] 750 mg PO QID PRN 11/08/16 [History] Ondansetron HCl [Zofran] 8 mg PO BID PRN 11/08/16 [History] Rosuvastatin Calcium [Crestor] 10 mg PO DAILY 11/08/16 [History] Saliva Substitute Combo No.3 [Aquoral] 3 - 5 spray MM DAILY PRN 11/08/16 [ History] Tamsulosin [Flomax] 0.4 mg PO DAILY 11/08/16 [History] Metoprolol XL (24 HR) Succ [Toprol Xl] 100 mg PO DAILY #60 tab.er.24h 11/10/16 [ Rx] Allergies/Adverse Reactions: Allergies aspirin Allergy (Verified 01/25/16 08:03) Gastrointestinal Upset dofetilide [From Tikosyn] Adverse Reaction (Verified 11/08/16 18:46) Unknown Per [facility] med list Procedures/tests Complete & Pending: Procedures Performed prior 72 hours Category Date Time Status ECG 12 lead ECG [ECG] Routine Y 11/08/16 13:47 Completed EKG [ECG 12 lead ECG] [ECG] Stat Y 11/09/16 01:50 Completed EV echocardiogram Routine Y 11/09/16 22:41 Completed Date of admission: 11/08/16 18:03 Primary care physician: PCP [facility] Consults: 11/08/16 22:41 Consult to Cardiology [CONS] Routine Comment: Consulting Provider: Card[facility] Reason for Consult: Chest pain, Aflutter with RVR, elevated BNP Call Completed: No Discharging clinician: Dewayne Nicholas Anticipated date of discharge: 11/10/16 - Patient Status Disposition: Home Health Service Condition: Fair Functional capacity at discharge: independent ambulation Overall status at discharge: patient is progressing back to baseline - Discharge Instructions Instructions: Atrial Flutter (DC), Chest Pain (DC), Diabetes Mellitus Type 2 in Adults (DC) [facility] Care Provider[facility] - Additional Instructions: I recommend you take your medications as prescribed. Follow-up with cardiology as recommended. Follow up with your primary care physician X3 to 5 days. - Diet and Activity Activity: increase activity as tolerated Diet: diabetic diet Hospital course: Mr. Zapata is a 66 year old male with aortic aneurysm, COPD, type 2 diabetes, hypertension, hyperlipidemia, Liver and esophageal cancer (reportedly in remission), and Afib who presented to the [facility] with chest pain that started the day prior to admission. He was admitted to the inpatient unit placed on telemetry and was in with atrial fibrillation/atrial flutter with RVR the heart rate of 150's, chest pain. He was continued on his home doses were also increased his metoprolol 100 mg daily and an echocardiogram was ordered and cardiology was consulted. Mr. Zapata heart rate improved, rhythm was normal sinus rhythm with occasional PACs, blood pressure remained stable throughout inpatient stay, he remained afebrile. Troponins were 0.002, triglycerides are 170. TTE today shows normal LVEF of 55%, normal RV, no significant valvular dysfunction. Cardiology examine the patient agreed with increase of metoprolol at 100 mg daily, continues around to and was stable for discharge. Cardiology arranged a follow-up with Dr. Butterfield through their office. On 11/10/2016 Mr. Zapata was deemed stable for discharge with follow-up with his primary care physician X3 to 5 days. Discharge plan was discussed with Mr. Zapata and he agreed. Prescription for metoprolol dose was provided at time of discharge. - Time Spent with Patient Total time spent providing and/or coordinating discharge services: - Constitutional Vitals: Temp Pulse Resp BP Pulse Ox 98.2 F 65 20 157/79 98 11/10/16 07:00 11/10/16 07:00 11/10/16 10:43 11/10/16 07:00 11/10/16 10:43 General appearance: Present: cooperative, A&O X 3, pleasant, no acute distress - Head Head exam: Present: atraumatic, normocephalic - Eye Eye exam: Present: PERRL, conjuntiva pink, sclera anicteric Pupils: Present: PERRL - Neck Neck exam general surgery: Present: supple, trachea midline. Absent: lymphadenopathy - Respiratory Respiratory exam: Present: CTAB. Absent: accessory muscle use, rales, rhonchi, wheezes - Cardiovascular Cardiovascular exam: Present: RRR, +S1, +S2. Absent: diastolic murmur, gallop, rubs, systolic murmur - GI/Abdominal GI/Abdominal exam: Present: normal bowel sounds, soft, no peritoneal signs. Absent: distended, tenderness - Extremities Exam Extremities exam: Present: warm, radial pulses palpable and symetrical. Absent : calf tenderness, cyanotic, pedal edema - Neurological Exam Neurological exam: Present: alert, oriented X3, no focal deficits, strengths equal and symetr throughout. Absent: pronater drift, facial droop, speech deficit - Psychiatric Psychiatric exam: Present: normal affect, normal mood - Skin Skin exam: Present: dry, intact - VTE Documentation of Mechanical Device: Graduated compression elastic hosiery <Isacc Cardona - Last Filed: 11/10/16 14:52> Date of Encounter: 11/10/16 - Discharge Diagnosis (1) Atrial flutter Priority: Primary Status: Acute Qualifiers: Atrial flutter type: typical Qualified Code(s): I48.3 - Typical atrial flutter (2) Chest pain Priority: Primary Status: Acute Qualifiers: Chest pain type: precordial pain Qualified Code(s): R07.2 - Precordial pain (3) Diabetes mellitus Priority: Secondary Status: Chronic Qualifiers: Diabetes mellitus type: type 2 Diabetes mellitus complication status: without complication Diabetes mellitus prison insulin use: without superintendent container terminal use Qualified Code(s): E11.9 - Type 2 diabetes mellitus without complications (4) Hypothyroidism Priority: Secondary Status: Acute Qualifiers: Hypothyroidism type: other Qualified Code(s): E03.8 - Other specified hypothyroidism (5) COPD (chronic obstructive pulmonary disease) Priority: Secondary Status: Chronic Qualifiers: COPD type: chronic bronchitis Chronic bronchitis type: simple Qualified Code(s): J41.0 - Simple chronic bronchitis (6) Coronary artery disease Priority: Secondary Status: Chronic Qualifiers: Coronary Disease-Associated Artery/Lesion type: robinson artery [place] vs. transplanted heart: robinson heart Associated angina: without angina Qualified Code(s): I25.10 - Atherosclerotic heart disease of robinson coronary artery without angina pectoris Procedures/tests Complete & Pending: Procedures Performed prior 72 hours Category Date Time Status ECG 12 lead ECG [ECG] Routine Y 11/08/16 13:47 Completed EKG [ECG 12 lead ECG] [ECG] Stat Y 11/09/16 01:50 Completed EV echocardiogram Routine Y 11/09/16 22:41 Completed Date of admission: 11/08/16 18:03 Primary care physician: [facility] Consults: 11/08/16 22:41 Consult to Cardiology [CONS] Routine Comment: Consulting Provider: [facility] Reason for Consult: Chest pain, Aflutter with RVR, elevated BNP Call Completed: No Hospital course: Mr. Zapata is a 66 year old male - Time Spent with Patient Total time spent providing and/or coordinating discharge services: 39min - Constitutional Vitals: Temp Pulse Resp BP Pulse Ox 98.2 F 65 20 157/79 98 11/10/16 07:00 11/10/16 07:00 11/10/16 10:43 11/10/16 07:00 11/10/16 10:43 - Attending Attestation I examined this patient and my medical decision-making was reviewed with the Resident Physician on 11/10/16. I agree with the documented findings, disposition and treatment plan as described except to the extent set forth below. Mr. Zapata feels OK today. He remains in NSR with PACs. No further atrial flutter this morning. No CP or SOB. Exam Alert. Comfortable Heart irreg No wheeze Plan Pt currently afebrile. BP controlled. Heart rate controlled. At this time he is medically stable for discharge. Follow up with physician at [facility].
--- NOTE | 2016-11-10 14:13 | Physician Discharge Referral ---
Home Health/Hosp Referral Info Transfer to: Home Health Attending Provider: davidson godfrey Provider in Charge Post Discharge: PCP - Diagnosis (1) Atrial fibrillation with RVR Priority: Primary Status: Acute (2) Chest pain Priority: Secondary Status: Acute (3) Type 2 diabetes mellitus Priority: Secondary Status: Chronic (4) COPD (chronic obstructive pulmonary disease) Priority: Secondary Status: Chronic (5) HTN (hypertension) Priority: Secondary Status: Chronic - Respiratory Orders Smoking Cessation: Smoking cessation has been advised. For more information, call the [place] Tobacco Quit Line at 5-561-LPZF-NOW. - Diet/Nutrition Diet/Nutrition Orders: Cardiac - Activity Activity Orders: Ambulate - Services Needed Following services are medically necessary services: Home Health Aide - Transfer Medications Prescriptions: Metoprolol XL (24 HR) Succ [Toprol Xl] 100 mg PO DAILY #60 tab.er.24h Home Medications: Albuterol Sulfate 2.5 mg IH QID PRN 05/19/15 [History] Bupropion HCl [Bupropion HCl Sr] 150 mg PO BID 05/19/15 [History] Ferrous Sulfate 325 mg PO BID 05/19/15 [History] GlipiZIDE [Glucotrol] 10 mg PO BID 05/19/15 [History] Isosorbide MONOnitrate (24 HR) [Imdur] 15 mg PO DAILY 05/19/15 [History] Nitroglycerin [Nitrostat] 0.4 mg SL Q5M PRN 05/19/15 [History] Potassium Chloride 10 meq PO DAILY 05/19/15 [History] Rivaroxaban [Xarelto] 20 mg PO DAILY 05/19/15 [History] Zolpidem Tartrate [Ambien] 5 mg PO HS PRN 05/19/15 [History] Capecitabine [Xeloda] 1,000 mg PO BID #56 tablet 08/22/15 [Rx] Albuterol Sulfate [Albuterol Inhaler] 2 puff IH QID PRN 11/06/15 [History] Cholecalciferol (D-3) [Vitamin D] 2,000 unit PO DAILY 11/06/15 [History] Docusate Sodium [Colace] 200 mg PO BID 11/06/15 [History] Omeprazole [PriLOSEC] 20 mg PO DAILY PRN 01/25/16 [History] Acetaminophen [Tylenol] 1,000 mg PO DAILY PRN 11/08/16 [History] Alendronate Sodium [Fosamax] 70 mg PO QWEEK 11/08/16 [History] Aspirin 81 mg PO DAILY 11/08/16 [History] Bisacodyl [Dulcolax] 30 mg PO QPM PRN 11/08/16 [History] Calcium Carbonate/Vitamin D3 [Calcium 500-Vit D3 200 Tablet] 1 each PO BID 11/08 [History] Carboxymethylcellulose Sodium [Refresh Liquigel] 1 drop BOTH EYES TID 11/08/16 [ History] Cetirizine HCl [Zyrtec] 10 mg PO DAILY PRN 11/08/16 [History] Finasteride [Proscar] 5 mg PO DAILY 11/08/16 [History] Heparin Sodium,Porcine/PF [Heparin Lock Flush 100 Unit/ml] 500 unit IVP QMONTH 11/08/16 [History] Ketoconazole 2% CRM [Nizoral Cream] 1 appl TP BID PRN 11/08/16 [History] Lidocaine Patch [Lidoderm 5% patch] 1 each TP DAILY PRN 11/08/16 [History] Lisinopril 2.5 mg PO BID 11/08/16 [History] Methocarbamol [Robaxin] 750 mg PO QID PRN 11/08/16 [History] Ondansetron HCl [Zofran] 8 mg PO BID PRN 11/08/16 [History] Rosuvastatin Calcium [Crestor] 10 mg PO DAILY 11/08/16 [History] Saliva Substitute Combo No.3 [Aquoral] 3 - 5 spray MM DAILY PRN 11/08/16 [ History] Tamsulosin [Flomax] 0.4 mg PO DAILY 11/08/16 [History] Metoprolol XL (24 HR) Succ [Toprol Xl] 100 mg PO DAILY #60 tab.er.24h 11/10/16 [ Rx] Allergies/Adverse Reactions: Allergies aspirin Allergy (Verified 01/25/16 08:03) Gastrointestinal Upset dofetilide [From Tikosyn] Adverse Reaction (Verified 11/08/16 18:46) Unknown Per [facility] med list Certification: Further, I certify that my clinical findings support that this patient is homebound (i.e. absences from home require considerable and taxing effort and are for medical reasons or jain services or infrequently or short duration when for other reasons) because: Homebound Reason: Patient requires assistance of a person or device to safely leave home Attestation: My signature below is to certify that this patient is under my care and that I, or nurse practitioner, or a physician's funeral home assistant working with me, has a face-to -face encounter with this patient.
--- NOTE | 2016-11-10 21:53 | Electrocardiograph Report ---
[facility] Test Date: 2016-11-08 Pat Name: Stew HERRERA Department: 105 Room: [id number] Gender: M Pre Owned Sales Consultant: : 1950 Requested By: Isacc Cardona Order Number: [id number] Reading MD: Javier Davila MD Measurements Intervals [place] Rate: 70 P: DC: 0 QRS: 20 QRSD: 82 T: 46 QT: 389 QTc: 409 Interpretive Statements ATRIAL FLUTTER NONSPECIFIC ST \T\ T WAVE ABNORMALITIES Electronically Signed On 11-10-16 21:52:06 EST by Javier Davila MD
--- NOTE | 2016-11-10 23:27 | Electrocardiograph Report ---
[facility] Test Date: 2016-11-09 Pat Name: Stew Zapata Department: 111 Room: [id number] Gender: M Mounter Sousaphones: [id number] : 1950 Requested By: Myrna Garibay Order Number: [id number] Reading MD: Javier Davila MD Measurements Intervals [place] Rate: 70 P: [place]: 0 QRS: -5 QRSD: 92 T: 39 QT: 402 QTc: 423 Interpretive Statements ATRIAL FLUTTER NONSPECIFIC ST \T\ T WAVE ABNORMALITIES Electronically Signed On 11-10-16 23:26:10 EST by Javier Davila MD
== END 2016-11-10 14:31 | disposition home health service (06) | DRG 310 ==
LOC: EMEROO 13:43 → 2NENU 18:03
PROVIDERS: ADMIT Nurse Practitioner Acute Care; ATTEND Internal Medicine

== ENCOUNTER 2017-11-16 11:30 | Inpatient (IN) ==
--- NOTE | 2017-11-16 11:58 | Emergency Department Note ---
Disposition Clinical Impression: NSTEMI (non-ST elevated myocardial infarction) Chest pain Qualifiers: Chest pain type: unspecified Qualified Code(s): R07.9 - Chest pain, unspecified CHF exacerbation Qualifiers: Congestive heart failure type: unspecified Qualified Code(s): I50.9 - Heart failure, unspecified Disposition: Admitted As Inpatient Condition: Good [facility] Care Provider[facility] - Forms: ED Satisfaction Letter Chest Pain HPI - General Chief Complaint: ED Chest Pain Stated Complaint: chest pain Time Seen by Provider: 11/16/17 11:34 Source: patient, EMS Mode of arrival: EMS Limitations: no limitations Vital Signs Reviewed: Yes Nursing Notes Reviewed: Yes - History of Present Illness HPI Narrative: 67-year-old male history of hypertension, atrial fibrillation on anticoagulation , CAD with reported 5 heart attacks without stents who presents to the ER from the [facility] due to chest pain. Patient reports his pain began around 8 PM yesterday evening at rest. Reports the pain over the center of his chest into his left shoulder. States he was breaking out with chills as well as feeling nauseated and short of breath. He was seen at the [facility] earlier today. Noted to be in atrial fibrillation which is his normal. Troponin of 0.16. He was given aspirin and 2 nitroglycerin prior to arrival. Reports improvement of his pain. No other complaints. Pt complaint: chest pain Onset (ago): hour(s) Time: 20:00 Duration: constant Onset: during rest Pain Location: substernal Severity: moderate Severity scale (1-10): 7 Pain Radiation: other (L shoulder) Improves with: nitroglycerin Worsens with: nothing Associated symptoms: Reports: nausea, vomiting, diaphoresis, dyspnea Treatments prior to arrival chest pain: aspirin, nitroglycerin - Related Data On Oral Contraceptives: No Home Medications Medication Instructions Recorded Confirmed Ferrous Sulfate 325 mg PO BID 05/19/15 11/16/17 GlipiZIDE [Glucotrol] 10 mg PO BID 05/19/15 11/16/17 Isosorbide MONOnitrate (24 HR) 30 mg PO DAILY 05/19/15 11/16/17 [Imdur] Nitroglycerin [Nitrostat] 0.4 mg SL Q5M PRN 05/19/15 11/16/17 Rivaroxaban [Xarelto] 20 mg PO DAILY 05/19/15 11/16/17 Zolpidem Tartrate [Ambien] 5 mg PO HS PRN 05/19/15 11/16/17 buPROPion HCl [Bupropion HCl Sr] 150 mg PO BID 05/19/15 11/16/17 Albuterol Sulfate [Albuterol 2 puff IH QID PRN 11/06/15 11/16/17 Inhaler] Cholecalciferol (D-3) [Vitamin D] 3,000 unit PO DAILY 11/06/15 11/16/17 Docusate Sodium [Colace] 200 mg PO BID 11/06/15 11/16/17 Omeprazole [PriLOSEC] 20 mg PO BID PRN 01/25/16 11/16/17 Acetaminophen [Tylenol] 1,000 mg PO DAILY PRN 11/08/16 11/16/17 Alendronate Sodium [Fosamax] 70 mg PO QWEEK 11/08/16 11/16/17 Bisacodyl [Dulcolax] 30 mg PO QPM PRN 11/08/16 11/16/17 Calcium Carbonate/Vitamin D3 1 tab PO BID 11/08/16 11/16/17 [Calcium 500-Vit D3 200 Tablet] Carboxymethylcellulose Sodium 1 drop BOTH EYES TID PRN 11/08/16 11/16/17 [Refresh Liquigel] Cetirizine HCl [Zyrtec] 10 mg PO DAILY PRN 11/08/16 11/16/17 Finasteride [Proscar] 5 mg PO DAILY 11/08/16 11/16/17 Ketoconazole 2% CRM [Nizoral Cream] 1 appl TP BID PRN 11/08/16 11/16/17 Lidocaine Patch [Lidoderm 5% patch] 1 patch TP DAILY PRN 11/08/16 11/16/17 Ondansetron HCl [Zofran] 8 mg PO BID PRN 11/08/16 11/16/17 Rosuvastatin Calcium [Crestor] 10 mg PO DAILY 11/08/16 11/16/17 Tamsulosin [Flomax] 0.4 mg PO DAILY 11/08/16 11/16/17 Metoprolol XL (24 HR) Succ [Toprol 50 mg PO BID 02/27/17 11/16/17 Xl] Aspirin [Lo-Dose Aspirin EC] 81 mg PO DAILY 05/05/17 11/16/17 Chlorthalidone 12.5 mg PO DAILY 11/16/17 11/16/17 Propylene Glycol/Peg 400 [Kro 1 drop BOTH EYES TID 11/16/17 11/16/17 Lubricating Rlf 0.3-0.4%] Allergies Allergy/AdvReac Type Severity Reaction Status Date / Time aspirin Allergy Gastrointestinal Verified 08/22/17 09:03 Upset dofetilide [From Tikosyn] AdvReac Unknown Verified 08/22/17 09:03 All systems ED: reviewed and negative except as stated. Cardiovascular: Reports: chest pain Respiratory: Reports: dyspnea. Denies: cough Gastrointestinal: Reports: nausea, vomiting. Denies: abdominal pain, diarrhea Musculoskeletal: Denies: back pain Chest Pain PMH - Past Medical History Medical history: Reports: aortic aneurysm, atrial fibrillation, cancer, COPD, diabetes, GERD, hyperlipidemia, hypertension, myocardial infarction, thyroid disease Surgical history: Reports: cholecystectomy, orthopedic, other Psychiatric history: Reports: anxiety, depression - Social History Smoking Status: Current every day smoker Alcohol use: Reports: none Drug use: Reports: none Physical Exam - General Limitations: no limitations General appearance: alert, in no apparent distress - Head Head exam: atraumatic - Eye Eye exam: Present: normal appearance - ENT ENT exam: normal exam - Neck Neck exam: Present: normal inspection, full ROM - Chest Chest inspection: Present: normal inspection, symmetric chest wall rise - Respiratory Respiratory exam: Present: normal lung sounds bilaterally - Cardiovascular Cardiovascular exam: Present: regular rate, normal rhythm, normal heart sounds - Abdominal Exam Abdominal exam: Present: soft, Non-Tender. Absent: tenderness - Extremities Exam Extremities exam: Present: normal inspection, full ROM - Expanded Upper Extremity Exam Shoulder exam: Present: normal inspection, full ROM Arm exam: Present: normal inspection, full ROM Elbow exam: Present: normal inspection, full ROM Forearm/Wrist exam: Present: normal inspection, full ROM Hand exam: Present: normal inspection, full ROM - Expanded Lower Extremity Exam Hip/Pelvis exam: Present: normal inspection, full ROM Upper leg exam: Present: normal inspection, full ROM Knee exam: Present: normal inspection, full ROM Lower leg exam: Present: normal inspection, full ROM Ankle exam: Present: normal inspection, full ROM Foot/toe exam: Present: normal inspection, full ROM - Skin Skin exam: Present: warm, dry Course Course Narrative: Patient seen and examined. Vital signs reviewed. We will get an EKG as well as labs including troponin. Patient received aspirin prior to arrival. Reports pain improvement nitroglycerin. - Reevaluation(s) Reevaluation #1: Patient is sleepy but reassessment. Discussed results of imaging and labs. States that he is still having some pain. We will give another dose of nitroglycerin. Vital Signs Temperature 98.4 F 11/16/17 11:33 Pulse Rate 97 11/16/17 11:33 Respiratory Rate 16 11/16/17 11:33 Blood Pressure 163/111 11/16/17 11:33 O2 Sat by Pulse Oximetry 98 11/16/17 11:33 Temperature 98.4 F 11/16/17 11:33 Pulse Rate 94 11/16/17 14:20 Respiratory Rate 12 11/16/17 14:20 Blood Pressure 149/117 11/16/17 14:20 O2 Sat by Pulse Oximetry 94 11/16/17 14:20 Oxygen Delivery Oxygen Delivery Room Air Chest Pain - MDM Narrative Medical decision making narrative: 67-year-old male presents to the ER from the [facility] due to chest pain and elevated troponin. An initial troponin of 0.16 repeated here 0.09. EKG without ischemic findings. Chest x-ray with pulmonary congestion. Elevated troponin as well as BNP over 1000. He was given aspirin and nitroglycerin prior to arrival. Patient given 40 mg of Lasix here. He is admitted to the hospitalist service for NSTEMI. - Lab Data Lab results reviewed: Yes I reviewed the patient's lab results. Result diagrams: 11/16/17 11:48 11/16/17 11:48 Lab Results 11/16/17 11/16/17 11/16/17 Range/Units 11:48 11:48 11:48 WBC 8.9 (4.3-11.1) K/mcL RBC 4.67 (4.19-5.50) M/mcL Hgb 15.0 (12.9-16.9) g/dL Hct 44.4 (37.5-50.1) % MCV 95.1 (83.0-100.0) fL MCH 32.1 (28.0-33.3) pg MCHC 33.8 (31.6-35.5) g/dL RDW 12.0 (11.5-14.5) % Plt Count 223 (140-400) K/mcL MPV 9.0 L (9.4-12.4) fL Immature Gran % 0.2 (0-4) % Seg Neutrophils % 85.0 % Lymphocytes % 9.8 % Monocytes % 4.7 % Eosinophils % 0.1 % Basophils % 0.2 % Neutrophils # 7.6 (1.6-8.9) K/mcL Lymphocytes # 0.9 (0.6-4.6) K/mcL Monocytes # 0.4 (0.0-1.3) K/mcL Eosinophils # 0.0 (0.0-0.6) K/mcL Basophils # 0.0 (0.0-0.2) K/mcL Immature Plt Fraction 2.6 (1.1-6.1) % PT 12.4 H (9.4-12.1) Seconds INR 1.1 APTT 31.4 (26.0-36.0) Seconds Sodium (136-145) mEq/L Potassium (3.5-5.1) mEq/L Chloride (98-107) mEq/L Carbon Dioxide (23-29) mEq/L BUN (8-23) mg/dL Creatinine (0.70-1.30) mg/dL Est GFR ( Amer) (> 60) Est GFR (Non-Af Amer) (> 60) BUN/Creatinine Ratio (6-26) Glucose (70-105) mg/dL Calculated Osmolality (280-300) Calcium (8.6-10.3) mg/dL Troponin I (< 0.04) ng/mL B-Natriuretic Peptide 1058 H (Less than 100) pg/mL 11/16/17 11/16/17 Range/Units 11:48 11:48 WBC (4.3-11.1) K/mcL RBC (4.19-5.50) M/mcL Hgb (12.9-16.9) g/dL Hct (37.5-50.1) % MCV (83.0-100.0) fL MCH (28.0-33.3) pg MCHC (31.6-35.5) g/dL RDW (11.5-14.5) % Plt Count (140-400) K/mcL MPV (9.4-12.4) fL Immature Gran % (0-4) % Seg Neutrophils % % Lymphocytes % % Monocytes % % Eosinophils % % Basophils % % Neutrophils # (1.6-8.9) K/mcL Lymphocytes # (0.6-4.6) K/mcL Monocytes # (0.0-1.3) K/mcL Eosinophils # (0.0-0.6) K/mcL Basophils # (0.0-0.2) K/mcL Immature Plt Fraction (1.1-6.1) % PT (9.4-12.1) Seconds INR APTT (26.0-36.0) Seconds Sodium 136 (136-145) mEq/L Potassium 4.3 (3.5-5.1) mEq/L Chloride 106 (98-107) mEq/L Carbon Dioxide 22 L (23-29) mEq/L BUN 22 (8-23) mg/dL Creatinine 1.03 (0.70-1.30) mg/dL Est GFR ( Amer) > 60 (> 60) Est GFR (Non-Af Amer) > 60 (> 60) BUN/Creatinine Ratio 21 (6-26) Glucose 201 H (70-105) mg/dL Calculated Osmolality 291 (280-300) Calcium 9.0 (8.6-10.3) mg/dL Troponin I 0.09 H* (< 0.04) ng/mL B-Natriuretic Peptide (Less than 100) pg/mL - Radiology Data Radiology results reviewed: Yes I reviewed the patient's radiology results. - EKG Data EKG attestation: Yes I reviewed and interpreted this EKG. EKG results narrative: EKG demonstrates atrial fibrillation with a rate of 95 beats per minute. Left axis deviation. Normal intervals. Normal R-wave progression. No gross ST elevations or depressions. No acute ischemic findings. No significant changes from previous EKG dated 09/07/17. Heart Score - Score History: Moderately Suspicious EKG: Normal Age: Greater than 65 Risk Factors: Equal/Greater than 3 risk factor or history of atherosclerotic disease Troponin: 1-3x normal limit HEART Score Total: 6 S.B.A.R. - S.B.A.R. Situation: Demographics, MOA Background: Presenting Complaint, Relevant PMH, Meds, & Allergies Assessment: Course and respsone to treatment, Exam Concerns, Patient/Family Expectation, Pertinant Lab Results Recommendation: Barrier(s) to disposition, Recommendation based on pending studies, treatments, or consults S.B.A.R. Report Given to: Dr. Rios Attestation Statement - Attestation Attestation: I examined this patient and my medical decision-making was reviewed with the Resident Physician, Dr. Uriarte. I agree with the documented findings, disposition and treatment plan as described except to the extent set forth below. Patient is a 67-year-old white male with a history of known coronary disease with reportedly 5 prior heart attacks with no stent placement, chronic atrial fibrillation on anticoagulants, and hypertension who presents to the emergency room today with chest pain since 6 PM last night. Patient was given aspirin and nitroglycerin 2 with the [facility] prior to arrival here and arrived pain-free. Patient had an outpatient evaluation at the [facility] and was sent with copies of his chest x-ray. I agree with patient's physical exam findings as documented. Patient was hypertensive on arrival. Patient's EKG on arrival showed chronic atrial fibrillation with poor R-wave progression in the anterior leads. No ischemia. Patient's chest x-ray showed no acute process. Patient's labs show an elevated troponin of 0.09 and an elevated BNP. Patient was given Lasix and nitroglycerin. Case was discussed with the hospitalist who accepted the patient for admission for chest discomfort. Blood pressure improved following nitroglycerin.
[2017-11-16] MEDS ORDERED: Ondansetron 4 MG/2 ML VIAL IVP ONE ×2 (12:03→14:27)
[2017-11-16 12:24] LABS: Basophils % 0.2 %; Eosinophils % 0.1 %; Hematocrit 44.4 % (37.5-50.1); Immature Granulocytes % 0.2 % (0-4); Immature Platelets 2.6 % (1.1-6.1); Lymphocytes # 0.9 K/mcL (0.6-4.6); Lymphocytes % 9.8 %; Mean Corpuscular HGB Conc 33.8 g/dL (31.6-35.5); Mean Corpuscular Hemoglobin 32.1 pg (28.0-33.3); Mean Corpuscular Volume 95.1 fL (83.0-100.0); Monocytes # 0.4 K/mcL (0.0-1.3); Monocytes % 4.7 %; Neutrophils # 7.6 K/mcL (1.6-8.9); Platelet Count 223 K/mcL (140-400); Red Blood Count 4.67 M/mcL (4.19-5.50)
[2017-11-16 12:29] LABS: INR 1.1; Prothrombin Time 12.4 Seconds (9.4-12.1)
[2017-11-16 12:31] LABS: Activated Partial Thrombo Time 31.4 Seconds (26.0-36.0)
[2017-11-16 12:33] LABS: BUN/Creatinine Ratio 21 (6-26); Blood Urea Nitrogen 22 mg/dL (8-23); Carbon Dioxide 22 mEq/L (23-29); Chloride 106 mEq/L (98-107); Glucose 201 mg/dL (70-105); Osmolality,Calculated 291 (280-300); Potassium 4.3 mEq/L (3.5-5.1); Sodium 136 mEq/L (136-145); eGFR For African Americans > 60 (> 60); eGFR For Non-African Americans > 60 (> 60)
[2017-11-16] MEDS ORDERED: Furosemide 40 MG/4 ML VIAL IVP ONE (13:08)
[2017-11-16] MEDS ORDERED: Nitroglycerin 0.4 MG TAB.SUBL SL PRN ×2 (13:09→14:56)
[2017-11-16] MEDS ORDERED: *HR* OxyCODONE Immed Rel 5 MG TABLET PO PRN (14:49)
[2017-11-16] MEDS ORDERED: Naloxone 0.4 MG/ML INJ IVP PRN (14:49)
[2017-11-16] MEDS ORDERED: *HR* HYDROcodone/Acet 5/325 mg TABLET PO PRN (14:49)
[2017-11-16] MEDS ORDERED: Artificial Tears SOLN 15 ML BOTTLE BOTH EYES PRN (14:56)
[2017-11-16] MEDS ORDERED: Ketoconazole 2% CRM 15 GM TUBE TP PRN (14:56)
[2017-11-16] MEDS ORDERED: Loratadine 10 MG TABLET PO PRN (14:56)
--- NOTE | 2017-11-16 15:44 | Internal Med History&Physical ---
<Dewayne Talavera - Last Filed: 11/16/17 20:35> Date of Encounter: 11/16/17 Time of Encounter: 14:00 Assessment and Plan (1) Chest pain Current visit: Yes Status: Acute Acute chest pain that began at 8:30 AM this morning and presented as chest pressure and centralize chest with radiation to left chest, left shoulder, and right arm. EMS came patient aspirin and 2 nitroglycerin which patient states helped reduce his pain. Patient reports previous MIs 5 without stent placement. Patient initially went to [facility] where initial troponin was 0.16. Patient came to [place] [facility] where initial troponin was 0.09. Patient reports shortness of breath and continued chest pressure. Cardiology consult ordered and discussed with Dr. Vish Butterfield and I appreciate the consult. Echocardiogram ordered. Bilateral carotid Doppler imaging ordered due to patient's report of dizziness with positional changes. Continuous cardiac telemetry. Will trend troponins 2. Continue aspirin therapy. Nitroglycerin when necessary. Continue patient's statin and HTN medications. Patient to be monitored closely for signs of increasing chest pain and/or troponins. Pt. discussed w/Dr. Rios who is in agreement w/plan of care. Pt. is high risk for cardiac event and further morbidity based on current symptoms, new onset of CHF , previous MIs 5, history, and risk factors of HTN, HLD, atrial fibrillation, diabetes, and current tobacco abuse. Inpatient Qualifiers: Chest pain type: precordial pain Qualified Code(s): R07.2 - Precordial pain (2) Acute exacerbation of CHF (congestive heart failure) Current visit: Yes Status: Acute Acute exacerbation of CHF. BNP 1058 on admission. No previous hx of CHF. Pt. reports occasional pedal edema and SOB. Cardiology consult ordered and discussed with Dr. Vish Butterfield with recommendation to diurese patient with IVP Lasix 40 mg twice a day. Echocardiogram ordered. Continuous cardiac telemetry. Supplemental O2 w/titration and SPO2 monitoring. 1.5L daily fluid restriction. Monitor I&O and daily weight. Qualifiers: Congestive heart failure type: diastolic Qualified Code(s): I50.33 - Acute on chronic diastolic (congestive) heart failure (3) SOB (shortness of breath) Current visit: Yes Status: Acute Acute SOB over the past several days. Pt. has hx of COPD and tobacco abuse, smoking 1/4 to 1/2 PPD. Supplemental O2 w/titration and SpO2 monitoring. Xopenex 0.63 Q6 scheduled. (4) Lightheadedness Current visit: Yes Status: Acute Acute on chronic lightheadedness w/positional changes. Orthostatic blood pressures and vital signs are ordered. Bilateral carotid Doppler duplex imaging ordered. Falls/safety precautions, up with assist, bed rest w/bathroom privileges w/assist only. (5) HTN (hypertension) Current visit: Yes Status: Chronic Hx of chronic HTN. Monitor pt. and VS. continuations Imdur, metoprolol, and lisinopril. Qualifiers: Hypertension type: essential hypertension Qualified Code(s): I10 - Essential (primary) hypertension (6) HLD (hyperlipidemia) Current visit: Yes Status: Chronic Hx of chronic HLD. Lipid panel in a.m. labs. Continue patient's Crestor. Qualifiers: Hyperlipidemia type: pure hypercholesterolemia Qualified Code(s): E78.00 - Pure hypercholesterolemia, unspecified; E78.0 - Pure hypercholesterolemia (7) GERD (gastroesophageal reflux disease) Current visit: Yes Status: Chronic Hx of chronic GERD. Continue patient's Prilosec and Zofran. Qualifiers: Esophagitis presence: esophagitis presence not specified Qualified Code(s) : K21.9 - Gastro-esophageal reflux disease without esophagitis (8) Abdominal aortic aneurysm Current visit: Yes Status: Chronic Hx of chronic abdominal aortic aneurysm. Stable. Qualifiers: Presence of rupture: without rupture Qualified Code(s): I71.4 - Abdominal aortic aneurysm, without rupture (9) Atrial fibrillation Current visit: Yes Status: Chronic Hx of paroxysmal atrial fibrillation. Continue pts. Xarelto. Continuous cardiac telemetry. Qualifiers: Atrial fibrillation type: paroxysmal Qualified Code(s): I48.0 - Paroxysmal atrial fibrillation (10) COPD (chronic obstructive pulmonary disease) Current visit: Yes Status: Chronic Hx of COPD. Stable. Qualifiers: COPD type: chronic bronchitis Chronic bronchitis type: simple Qualified Code(s): J41.0 - Simple chronic bronchitis (11) Coronary artery disease Current visit: Yes Status: Chronic Hx of chronic CAD. Continue pts. aspirin therapy, Xarelto, Nitrostat, Imdur, metoprolol, and lisinopril. Continuous cardiac telemetry. Qualifiers: Coronary Disease-Associated Artery/Lesion type: [place] artery [place] vs. transplanted heart: [place] heart Associated angina: without angina Qualified Code(s): I25.10 - Atherosclerotic heart disease of [place] coronary artery without angina pectoris (12) Diabetes Current visit: Yes Status: Chronic Hx of chronic diabetes controlled by oral anti-hyperglycemic medications. Hold oral medications and add low-dose correction insulin sliding scale w/ hypoglycemic protocol. BG checks ACHS. A1c in a.m. labs. Qualifiers: Diabetes mellitus type: type 2 Diabetes mellitus complication status: with unspecified complications Diabetes mellitus [facility] insulin use: without intermodal dispatcher use Qualified Code(s): E11.8 - Type 2 diabetes mellitus with unspecified complications (13) Thyroid disease Current visit: Yes Status: Chronic Hx of chronic hyperthyroidism. TSH and Free T4 ordered. Continue pts. Tapazole. (14) DVT prophylaxis Current visit: Yes Status: Acute Continue pts. Xarelto for DVT prophylaxis. Monitor pt. for signs of bleeding. Internal Medicine - H&P: HPI Chief complaint: Chest pain Admitted From: Hospital to Hospital Transfer Plans for Post Hospital Care: Home History of present illness: Mr. Zapata is a 67 year old male with medical hx of aortic aneurysm, atrial fibrillation, previous cancer of the larynx/liver/esophagus, COPD, diabetes controlled by oral anti-hyperglycemic medications, HLD, HTN, MO x5 with last one 5-6 months ago, and thyroid disease presents from the ED w/chief complaint of chest pain that began this morning at 8:30 a.m. and presented centralized pressure which moved to the left side of his chest, left shoulder, and right arm. Pt. reports MO x5 w/o stent placement. EMS gave pt. aspirin and 2 nitro which he states helped his pain. Patient reports chest pain, shortness of breath , nausea, dizziness w/positional changes, and diaphoresis but denies recent illness, fever, chills, vomiting, changes in vision, headache, palpitations, cough, chest congestion, abdominal pain, diarrhea, constipation, numbness, tingling, presyncope, or syncope. Past Med Surg Social Fam HX - Past Medical History Source: patient, old records reviewed Medical history: aortic aneurysm, atrial fibrillation, cancer (Larynx, liver, and esophageal (resolved)), COPD, diabetes (Controlled by oral medications), GERD, hyperlipidemia, hypertension, myocardial infarction (x5 w/o stent placement), thyroid disease Psychiatric history: anxiety, depression - Past Surgical History Surgical History: cholecystectomy, orthopedic, other - Social History Smoking Status: Current every day smoker Packs per day: 1/4 to 1/2 PPD Smokeless Tobacco Status: No Alcohol use: none Drug use: none Current living situation: Home Activity Level: Independent ambulation Recent Out of Country Travel Within the Last 8 Weeks: No Exposure or Possible Exposure to Illness During Travel: No - Family History Mother Race: Family Member Ethnicity: Non- Living Status: Age at : 78 Cause of : ESRD on dialysis Hx Family Cardiac Disorders: Yes (Triple bypass) Hx Family Endocrine Disorder: Yes (DM) Father Adopted: No Race: Family Member Ethnicity: Non- Living Status: Age at : 79 Cause of : Respiratory failure Hx Family Respiratory Disorders: Yes (Emphysema) Hx Family Endocrine Disorder: Yes (DM) Hx Family Neuromuscular Disorders: No Hx Family Neurologic Disorders: No Hx Family HEENT Disorders: No Hx Family Autoimmune Disorders: No Brother Race: Family Member Ethnicity: Non- Living Status: Age at : 67 Cause of : Lung cancer Hx Family Cancer: Yes (Lung) Sister Race: Family Member Ethnicity: Non- Living Status: Still Living Hx Family Cancer: Yes (Breast, ovarian) Hx Family Endocrine Disorder: Yes (DM) Internal Medicine - H&P: Meds Ferrous Sulfate 325 mg PO BID 05/19/15 [History] GlipiZIDE [Glucotrol] 10 mg PO BID 05/19/15 [History] Isosorbide MONOnitrate (24 HR) [Imdur] 30 mg PO DAILY 05/19/15 [History] Nitroglycerin [Nitrostat] 0.4 mg SL Q5M PRN 05/19/15 [History] Rivaroxaban [Xarelto] 20 mg PO DAILY 05/19/15 [History] Zolpidem Tartrate [Ambien] 5 mg PO HS PRN 05/19/15 [History] buPROPion HCl [Bupropion HCl Sr] 150 mg PO BID 05/19/15 [History] Albuterol Sulfate [Albuterol Inhaler] 2 puff IH QID PRN 11/06/15 [History] Cholecalciferol (D-3) [Vitamin D] 3,000 unit PO DAILY 11/06/15 [History] Docusate Sodium [Colace] 200 mg PO BID 11/06/15 [History] Omeprazole [PriLOSEC] 20 mg PO BID PRN 01/25/16 [History] Acetaminophen [Tylenol] 1,000 mg PO DAILY PRN 11/08/16 [History] Alendronate Sodium [Fosamax] 70 mg PO QWEEK 11/08/16 [History] Bisacodyl [Dulcolax] 30 mg PO QPM PRN 11/08/16 [History] Calcium Carbonate/Vitamin D3 [Calcium 500-Vit D3 200 Tablet] 1 tab PO BID [History] Carboxymethylcellulose Sodium [Refresh Liquigel] 1 drop BOTH EYES TID PRN [History] Cetirizine HCl [Zyrtec] 10 mg PO DAILY PRN 11/08/16 [History] Finasteride [Proscar] 5 mg PO DAILY 11/08/16 [History] Ketoconazole 2% CRM [Nizoral Cream] 1 appl TP BID PRN 11/08/16 [History] Lidocaine Patch [Lidoderm 5% patch] 1 patch TP DAILY PRN 11/08/16 [History] Ondansetron HCl [Zofran] 8 mg PO BID PRN 11/08/16 [History] Rosuvastatin Calcium [Crestor] 10 mg PO DAILY 11/08/16 [History] Tamsulosin [Flomax] 0.4 mg PO DAILY 11/08/16 [History] Metoprolol XL (24 HR) Succ [Toprol Xl] 50 mg PO BID 02/27/17 [History] Aspirin [Lo-Dose Aspirin EC] 81 mg PO DAILY 05/05/17 [History] Chlorthalidone 12.5 mg PO DAILY 11/16/17 [History] Propylene Glycol/Peg 400 [Kro Lubricating Rlf 0.3-0.4%] 1 drop BOTH EYES TID 01/28 [History] 3 Allergy/AdvReac Type Severity Reaction Status Date / Time aspirin Allergy Gastrointestinal Verified 08/22/17 09:03 Upset dofetilide [From Tikosyn] AdvReac Unknown Verified 08/22/17 09:03 All Systems PM: A 10-system review of systems was performed and is negative for pertinent findings except as documented above in the HPI. - Constitutional Constitutional: no chills, no fever(s), no night sweats - EENT Eyes: no change in vision, no discharge, no pain, no photophobia Ears: no ear discharge, no ear pain, no tinnitus Nose, mouth and throat: no dysphagia, no nasal discharge, no neck pain, no sore throat - Breasts Breasts: as per HPI - Cardiovascular Cardiovascular ROS IM: as per HPI, chest pain (Pressure in central chest w/ radiation to left chest, left shoulder, and right arm), diaphoresis, dyspnea, dyspnea on exertion, edema (Occasional pedal edema bilaterally), irregular heart rhythm (Hx of atrial fibrillation), no lightheadedness, no palpitations, no syncope - Respiratory Respiratory: as per HPI, dyspnea, dyspnea on exertion, no cough, no wheezing, no excessive phlegm production - Gastrointestinal Gastrointestinal: as per HPI, nausea, no abdominal pain, no diarrhea, no hematemesis, no hematochezia, no melena, no vomiting - Genitourinary Genitourinary ROS male: as per HPI - Musculoskeletal Musculoskeletal ROS IM: no numbness, no tingling - Integumentary Integumentary IM: no rash, no unusual bruising - Neurological Neurological ROS: as per HPI, dizziness, no confusion, no convulsions, no focal weakness, no numbness, no tingling, no tremor(s) - Psychiatric Psychiatric: as per HPI, anxiety, depression - Endocrine Endocrine IM: as per HPI - Hematologic/Lymphatic Hematologic/Lymphatic: no easy bruising - Allergic/Immunologic Allergic/Immunologic: as per HPI - Constitutional Vitals: Temp Pulse Resp BP Pulse Ox 98.4 F 94 12 149/117 94 11/16/17 11:33 11/16/17 14:20 11/16/17 14:20 11/16/17 14:20 11/16/17 14:20 General appearance: Present: cooperative, A&O X 3, pleasant, no acute distress, obese, answers questions appropriately - Head Head exam: Present: atraumatic, normocephalic - Eye Eye exam: Present: PERRL, conjuntiva pink, sclera anicteric Pupils: Present: PERRL - ENT ENT exam: Present: normal exam - Neck Neck exam general surgery: Present: normal inspection, supple, trachea midline. Absent: lymphadenopathy - Respiratory Respiratory exam: Present: CTAB. Absent: accessory muscle use, rales, rhonchi, wheezes - Cardiovascular Cardiovascular exam: Present: irregular rhythm (Atrial fibrillation) - GI/Abdominal GI/Abdominal exam: Present: normal bowel sounds, soft, no peritoneal signs. Absent: distended, tenderness - Rectal Rectal exam: Present: deferred - Additional comments: exam deferred. - Extremities Exam Extremities exam: Present: pedal edema, warm, radial pulses palpable and symmetrical. Absent: calf tenderness, cyanotic - Back Exam Back exam: Present: normal inspection - Neurological Exam Neurological exam: Present: CN II-XII intact, oriented X3, no focal deficits. Absent: pronater drift, facial droop, speech deficit - Psychiatric Psychiatric exam: Present: normal affect, normal mood - Skin Skin exam: Present: dry, intact Internal Med - H&P Results - Labs CBC & Chem 7: 11/16/17 11:48 11/16/17 11:48 Labs: Short CBC 11/16/17 Range/Units 11:48 WBC 8.9 (4.3-11.1) K/mcL Hgb 15.0 (12.9-16.9) g/dL Hct 44.4 (37.5-50.1) % Plt Count 223 (140-400) K/mcL Neutrophils # 7.6 (1.6-8.9) K/mcL BMP 11/16/17 11:48 Sodium 136 Potassium 4.3 Chloride 106 Carbon Dioxide 22 L BUN 22 Creatinine 1.03 Glucose 201 H Calcium 9.0 Cardiac Enzymes 11/16/17 Range/Units 11:48 Troponin I 0.09 H* (< 0.04) ng/mL - EKG Data Prior EKG available for review: yes EKG comments: 11/16/17 15:51 EKG dated 09/07/17 shows atrial fibrillation with abnormal ECG. EKG dated 11/16/17 shows atrial fibrillation with marked left axis deviation and septal myocardial infarction (probably old). <Silver Rios - Last Filed: 11/17/17 19:06> Date of Encounter: 11/17/17 Internal Medicine - H&P: HPI History of present illness: Mr. Zapata is a 67 year old male All Systems PM: A 10-system review of systems was performed and is negative for pertinent findings except as documented above in the HPI. - Constitutional Vitals: Temp Pulse Resp BP Pulse Ox 98.2 F 102 18 101/60 96 11/17/17 15:39 11/17/17 15:39 11/17/17 17:14 11/17/17 15:39 11/17/17 17:14 Internal Med - H&P Results - Labs CBC & Chem 7: 11/17/17 05:10 11/17/17 05:10 Labs: Short CBC 11/17/17 Range/Units 05:10 WBC 6.3 (4.3-11.1) K/mcL Hgb 15.0 (12.9-16.9) g/dL Hct 44.3 (37.5-50.1) % Plt Count 173 (140-400) K/mcL Neutrophils # 4.4 (1.6-8.9) K/mcL BMP 11/17/17 05:10 Sodium 139 Potassium 3.5 Chloride 104 Carbon Dioxide 27 BUN 25 H Creatinine 1.41 H Glucose 142 H Calcium 8.5 L Cardiac Enzymes 11/16/17 11/17/17 Range/Units 20:00 05:10 Troponin I 0.11 H* 0.05 H* (< 0.04) ng/mL Liver Function 11/17/17 Range/Units 05:10 Total Bilirubin 0.9 (0.3-1.0) mg/dL AST 17 (13-39) Units/L ALT 16 (7-52) Units/L Alkaline Phosphatase 72 (34-104) Units/L Albumin 3.8 (3.5-5.7) g/dL - Impressions ITS Impressions Echocardiogram 11/17/17 14:59 Impressions: Technically challenging due to body habitus. Grossly normal LV systolic function. Consider use of Definity for quantification of LV EF. LV size appears normal. LV wall thickness measurements are not well obtained. Indeterminate diastolic function. RV is not well visualized. No significant valvular dysfunction. No pulmonary hypertension by TR gradient. Left Ventricular Wall Motion: Rest Echo Findings The apex, apical inferior, mid inferior, basal inferior, apical anterior, mid anterior, basal anterior, basal anterior septal and basal inferior lateral nettles were not visualized. All other wall segments showed normal motion. Findings: Study Quality * Technically challenging due to body habitus. ECG Findings * Atrial fibrillation. Left Ventricle * Grossly normal LV systolic function. * LV size appears normal. LV wall thickness measurements are not well obtained. * Indeterminate diastolic function. Right Ventricle * RV is not well visualized. Left Atrium * Left atrium is not well visualized. Right Atrium * Right atrium is not well visualized. Aortic Valve * Aortic valve not well visualized. * No aortic regurgitation. * No aortic stenosis. Tricuspid Valve * Normal tricuspid valve structure. * Trivial TR. Mitral Valve * Mitral valve not well visualized. * No mitral regurgitation. * No mitral stenosis. Pulmonic Valve * Pulmonic valve is not well visualized. * Doppler not well obtained. Pulmonary Artery * Pulmonary artery not well visualized. Aorta * Not well visualized. Interatrial Septum * Interatrial septum not well evaluated. IVC * The IVC is not well evaluated. - Attending Attestation Discussed with ARUNA and agree with assessment and plan ACS rule out
[2017-11-16] MEDS: Patient Taking Own Medication 1 EACH OP SCH ×2 (17:34→20:44)
[2017-11-16] MEDS: Furosemide 40 MG/4 ML VIAL IVP SCH (17:40)
[2017-11-16] MEDS: BuPROPion SR (12 HR) 150 MG TABLET PO SCH (20:43)
[2017-11-16] MEDS: Metoprolol XL (24 HR) Succ 50 MG TAB.ER.24H PO SCH (20:44)
[2017-11-16] MEDS: Ondansetron ODT 4 MG TAB.RAPDIS PO PRN (22:13)
[2017-11-16] MEDS: Levalbuterol Neb 0.63 MG/3 ML IH SCH (22:39)
[2017-11-17] MEDS: Levalbuterol Neb 0.63 MG/3 ML IH SCH ×4 (03:44→21:34)
[2017-11-17 05:33] LABS: INR 1.2; Prothrombin Time 12.7 Seconds (9.4-12.1)
[2017-11-17 05:36] LABS: Activated Partial Thrombo Time 27.5 Seconds (26.0-36.0)
[2017-11-17 05:41] LABS: Basophils % 0.6 %; Eosinophils # 0.1 K/mcL (0.0-0.6); Eosinophils % 0.8 %; Hematocrit 44.3 % (37.5-50.1); Immature Granulocytes % 0.2 % (0-4); Lymphocytes # 1.3 K/mcL (0.6-4.6); Lymphocytes % 21.2 %; Mean Corpuscular HGB Conc 33.9 g/dL (31.6-35.5); Mean Corpuscular Hemoglobin 32.4 pg (28.0-33.3); Mean Corpuscular Volume 95.7 fL (83.0-100.0); Mean Platelet Volume 9.5 fL (9.4-12.4); Monocytes # 0.5 K/mcL (0.0-1.3); Monocytes % 7.7 %; Neutrophils # 4.4 K/mcL (1.6-8.9); Platelet Count 173 K/mcL (140-400); Red Blood Count 4.63 M/mcL (4.19-5.50); Red Cell Distribution Width 12.3 % (11.5-14.5); Segmented Neutrophils % 69.5 %
[2017-11-17 05:59] LABS: Thyroid Stimulating Hormone 0.48 mcIU/mL (0.340-5.600)
[2017-11-17 06:06] LABS: Hemoglobin A1C 7.6 %
[2017-11-17] MEDS: Ondansetron ODT 4 MG TAB.RAPDIS PO PRN ×2 (06:07→11:37)
[2017-11-17 06:21] LABS: Alanine Aminotransferase 16 Units/L (7-52); Albumin 3.8 g/dL (3.5-5.7); Albumin/Globulin Ratio 1.8 (1.1-2.2); Alkaline Phosphatase 72 Units/L (34-104); Aspartate Amino Transferase 17 Units/L (13-39); BUN/Creatinine Ratio 18 (6-26); Bilirubin,Total 0.9 mg/dL (0.3-1.0); Blood Urea Nitrogen 25 mg/dL (8-23); Calcium 8.5 mg/dL (8.6-10.3); Carbon Dioxide 27 mEq/L (23-29); Chloride 104 mEq/L (98-107); Chol/HDL Ratio 4.3 (0-4.9); Cholesterol 153 mg/dL (< 200); Globulin 2.1 g/dL (2.4-3.5); Glucose 142 mg/dL (70-105); HDL Cholesterol 36 mg/dL (40-59); LDL Cholesterol,Calculated 74 mg/dL (0-99); Magnesium 1.8 mg/dL (1.6-2.6); Osmolality,Calculated 295 (280-300); Potassium 3.5 mEq/L (3.5-5.1); Sodium 139 mEq/L (136-145); Total Protein 5.9 g/dL (6.4-8.9); Triglycerides 213 mg/dL (< 150); eGFR For African Americans > 60 (> 60); eGFR For Non-African Americans 50 (> 60)
[2017-11-17] MEDS: BuPROPion SR (12 HR) 150 MG TABLET PO SCH ×2 (09:19→20:29)
[2017-11-17] MEDS: Isosorbide MONOnitrate (24 HR) 30 MG TAB.ER.24H PO SCH (09:20)
[2017-11-17] MEDS: Finasteride 5 MG TABLET PO SCH (09:20)
[2017-11-17] MEDS: Cholecalciferol (D-3) 1,000 UNIT TABLET PO SCH (09:20)
[2017-11-17] MEDS: Aspirin Enteric Coated 81 MG Tablet PO SCH (09:20)
[2017-11-17] MEDS: Metoprolol XL (24 HR) Succ 50 MG TAB.ER.24H PO SCH ×2 (09:21→20:29)
[2017-11-17] MEDS: Furosemide 40 MG/4 ML VIAL IVP SCH (09:21)
--- NOTE | 2017-11-17 10:08 | Cardiology Consult Note ---
Date of Encounter: 11/17/17 Time of Encounter: 09:00 Assessment and Plan (1) Elevated troponin Current Visit: Yes Status: Acute Troponin 0.16 ([facility]), 0.09, 0.11, 0.05. No acute ischemic ECG changes. Patient is pain free upon exam. [facility] 09/2014: minimal, non-obstructive CAD. BNP 1058 upon admission, no overt volume overload on exam. Recommend echocardiogram to structure and function. No heparin gtt d/t Xarelto therapy. Continue asa, statin, and betablocker. Further recommendations to follow. (2) Atrial fibrillation Current Visit: Yes Status: Chronic Long standing hx of PAF. Allergy to Tikosyn. Unable to undergo cryo ablation in February 2017 d/t abnormal anatomy. 12 hour tele: avg HR 88 afib. Rate controlled on current medications. On Xarelto for AC. Qualifiers: Atrial fibrillation type: paroxysmal Qualified Code(s): I48.0 - Paroxysmal atrial fibrillation (3) CHF exacerbation Current Visit: Yes Status: Acute Possible mild CHF exacerbation. BNP elevated, 1058. CXR ([facility]): pulmonary congestion. No over edema/volume overload upon exam. Last TTE 2016: EF 55%, no significant valvular dysfunction, normal wall motion Mild SCr bump with IV lasix. Repeat TTE pending. Strict I&Os, daily weights, Na/fluid restriction. Qualifiers: Congestive heart failure type: unspecified Qualified Code(s): I50.9 - Heart failure, unspecified Discussion w patient/family: The assessment and plan as outlined above was discussed with the patient and/or family members who expressed understanding and agreement. All questions were answered. Thank you for involving us in the care of your patient. Please call with any questions. The patient will be discussed and reviewed with Dr. Carreon; changes to be made accordingly. History of Present Illness Consult date: 11/17/17 Requesting physician: Dewayne Talavera Consult reason: Elevated troponin Chief complaint: Chest pain History of present illness: Mr. Zapata is a 67 year old male with PMHx significant for Afib (Xarelto), HTN, and DMII who presented to the ED with complaints of chest pain. He reports pain started Friday evening while laying in bed. Discomfort described as heaviness/ pressure that radiated across chest and up left neck/down arm. Patient reports he took a NTG tab which somewhat helped. Associated symptoms include nausea and diaphoresis. [facility] due to elevated troponin--0.16. Prior CV testing: February 2017: attempted cryo ablation for AF, unable to perform d/t abnormal anatomy TTE 11/09/16: EF 55%, no significant valvular dysfunction C 09/26/14: minimal CAD, EF 55% Past Med Surg Social Fam HX - Past Medical History Attestation: Yes The following information was validated with the patient. Source: patient Medical history: aortic aneurysm, atrial fibrillation, cancer (Larynx, liver, and esophageal (resolved)), COPD, diabetes (Controlled by oral medications), GERD, hyperlipidemia, hypertension, myocardial infarction (x5 w/o stent placement), thyroid disease Psychiatric history: anxiety, depression - Past Surgical History Surgical History: cholecystectomy, orthopedic, other - Social History Smoking Status: Current every day smoker Packs per day: 1/4 to 1/2 PPD Smokeless Tobacco Status: No Alcohol use: none Drug use: none - Family History Mother Race: Family Member Ethnicity: Non- Living Status: Age at : 78 Cause of : ESRD on dialysis Hx Family Cardiac Disorders: Yes (Triple bypass) Hx Family Endocrine Disorder: Yes (DM) Brother Race: Family Member Ethnicity: Non- Living Status: Age at : 67 Cause of : Lung cancer Hx Family Cancer: Yes (Lung) Sister Race: Family Member Ethnicity: Non- Living Status: Still Living Hx Family Cancer: Yes (Breast, ovarian) Hx Family Endocrine Disorder: Yes (DM) Father Adopted: No Race: Family Member Ethnicity: Non- Living Status: Age at : 79 Cause of : Respiratory failure Hx Family Cardiac Disorders: Yes Hx Family Respiratory Disorders: Yes (Emphysema) Hx Family Cancer: No Hx Family GI Disorders: No Hx Family Endocrine Disorder: Yes (DM) Hx Family Neuromuscular Disorders: No Hx Family Neurologic Disorders: No Hx Family HEENT Disorders: No Hx Family Autoimmune Disorders: No Medications and Allergies Ferrous Sulfate 325 mg PO BID 05/19/15 [History] GlipiZIDE [Glucotrol] 10 mg PO BID 05/19/15 [History] Isosorbide MONOnitrate (24 HR) [Imdur] 30 mg PO DAILY 05/19/15 [History] Nitroglycerin [Nitrostat] 0.4 mg SL Q5M PRN 05/19/15 [History] Rivaroxaban [Xarelto] 20 mg PO DAILY 05/19/15 [History] Zolpidem Tartrate [Ambien] 5 mg PO HS PRN 05/19/15 [History] buPROPion HCl [Bupropion HCl Sr] 150 mg PO BID 05/19/15 [History] Albuterol Sulfate [Albuterol Inhaler] 2 puff IH QID PRN 11/06/15 [History] Cholecalciferol (D-3) [Vitamin D] 3,000 unit PO DAILY 11/06/15 [History] Docusate Sodium [Colace] 200 mg PO BID 11/06/15 [History] Omeprazole [PriLOSEC] 20 mg PO BID PRN 01/25/16 [History] Acetaminophen [Tylenol] 1,000 mg PO DAILY PRN 11/08/16 [History] Alendronate Sodium [Fosamax] 70 mg PO QWEEK 11/08/16 [History] Bisacodyl [Dulcolax] 30 mg PO QPM PRN 11/08/16 [History] Calcium Carbonate/Vitamin D3 [Calcium 500-Vit D3 200 Tablet] 1 tab PO BID [History] Carboxymethylcellulose Sodium [Refresh Liquigel] 1 drop BOTH EYES TID PRN [History] Cetirizine HCl [Zyrtec] 10 mg PO DAILY PRN 11/08/16 [History] Finasteride [Proscar] 5 mg PO DAILY 11/08/16 [History] Ketoconazole 2% CRM [Nizoral Cream] 1 appl TP BID PRN 11/08/16 [History] Lidocaine Patch [Lidoderm 5% patch] 1 patch TP DAILY PRN 11/08/16 [History] Ondansetron HCl [Zofran] 8 mg PO BID PRN 11/08/16 [History] Rosuvastatin Calcium [Crestor] 10 mg PO DAILY 11/08/16 [History] Tamsulosin [Flomax] 0.4 mg PO DAILY 11/08/16 [History] Metoprolol XL (24 HR) Succ [Toprol Xl] 50 mg PO BID 02/27/17 [History] Aspirin [Lo-Dose Aspirin EC] 81 mg PO DAILY 05/05/17 [History] Chlorthalidone 12.5 mg PO DAILY 11/16/17 [History] Propylene Glycol/Peg 400 [Kro Lubricating Rlf 0.3-0.4%] 1 drop BOTH EYES TID 01/28 [History] 3 Allergy/AdvReac Type Severity Reaction Status Date / Time aspirin Allergy Gastrointestinal Verified 08/22/17 09:03 Upset dofetilide [From Tikosyn] AdvReac Unknown Verified 08/22/17 09:03 All Systems Review: A 10-system review of systems was performed and is negative for pertinent findings except as documented above in the HPI. - Cardiovascular Cardiovascular: as per HPI Physical Examination Vital Signs, Last 4 Hours Temp Pulse Resp BP Pulse Ox 11/17/17 09:32 95 11/17/17 07:23 98.0 F 107 18 141/87 95 General: Conversant, No Apparent Distress HEENT: Atraumatic, Normocephaly, Mucus Membranes Moist Neck: No JVD, Normal carotid pulses Cardiac: Reg Rate and Rhythm, Normal S1 and S2, No Murmur Lungs: Other (Decreased bilaterally) Neuro: Alert and responsive, No focal deficits noted Abdomen: Soft, Non-Tender Skin: No rashes noted on visualized skin Musculoskeletal: No Chest Wall Tenderness Extremities: No Clubbing, No Cyanosis, No Edema, Normal Pulses Results 11/17/17 05:10 11/17/17 05:10 Lab Results 11/16/17 11/17/17 11/17/17 20:00 05:10 05:10 WBC 6.3 Hgb 15.0 Hct 44.3 Plt Count 173 INR APTT Sodium Potassium Chloride Carbon Dioxide BUN Creatinine Glucose Calcium Magnesium Total Bilirubin AST ALT Alkaline Phosphatase Troponin I 0.11 H* 0.05 H* TSH 11/17/17 11/17/17 11/17/17 05:10 05:10 05:10 WBC Hgb Hct Plt Count INR 1.2 APTT 27.5 Sodium 139 Potassium 3.5 Chloride 104 Carbon Dioxide 27 BUN 25 H Creatinine 1.41 H Glucose 142 H Calcium 8.5 L Magnesium 1.8 Total Bilirubin 0.9 AST 17 ALT 16 Alkaline Phosphatase 72 Troponin I TSH 0.480 Active Medications Acetaminophen (Tylenol) 650 mg PO Q6HR PRN PRN Reason: Mild Pain/Fever Stop: 05/18/18 14:50 Hydrocodone Bitart/Acetaminophen ([place] 5-325 Mg) 1 tab PO Q6HR PRN PRN Reason: Moderate Pain Stop: 05/18/18 14:50 Last Admin: 11/16/17 17:40 Dose: 1 tab Albuterol Sulfate (Albuterol Inhaler) 2 puff IH QID PRN PRN Reason: Shortness Of Breath Stop: 05/18/18 14:57 Artificial Tears ([place] Tears) 1 drop BOTH EYES TID PRN PRN Reason: Dry Eye(s) Aspirin (Aspirin Ec) 81 mg PO DAILY KEENAN Stop: 05/19/18 09:01 Last Admin: 11/17/17 09:20 Dose: 81 mg Bisacodyl (Dulcolax) 10 mg PO QPM PRN PRN Reason: Constipation Stop: 05/18/18 14:57 Bupropion HCl (Wellbutrin Sr) 150 mg PO BID KEENAN Stop: 05/18/18 21:01 Last Admin: 11/17/17 09:19 Dose: 150 mg Calcium Carbonate (Tums) 500 mg PO BID KEENAN Stop: 05/18/18 21:01 Last Admin: 11/17/17 09:19 Dose: 500 mg Chlorthalidone (Chlorthalidone) 12.5 mg PO DAILY KEENAN Stop: 05/19/18 09:01 Last Admin: 11/17/17 09:20 Dose: 12.5 mg Docusate Sodium (Colace) 200 mg PO BID KEENAN PRN Reason: Protocol Stop: 05/18/18 21:01 Last Admin: 11/17/17 09:20 Dose: 200 mg Ferrous Sulfate (Ferrous Sulfate) 325 mg PO BIDWM KEENAN Stop: 05/18/18 17:01 Last Admin: 11/17/17 09:21 Dose: 325 mg Finasteride (Proscar) 5 mg PO DAILY KEENAN PRN Reason: Protocol Stop: 05/19/18 09:01 Last Admin: 11/17/17 09:20 Dose: 5 mg Furosemide (Lasix) 40 mg IVP BIDDIURETIC KEENAN Stop: 05/18/18 17:01 Last Admin: 11/17/17 09:21 Dose: 40 mg Isosorbide Mononitrate (Imdur) 30 mg PO DAILY KEENAN Stop: 05/19/18 09:01 Last Admin: 11/17/17 09:20 Dose: 30 mg Ketoconazole (Nizoral Cream) 1 appl TP BID PRN PRN Reason: Rash Stop: 05/18/18 14:57 Levalbuterol HCl (Xopenex) 0.63 mg IH [id number] KEENAN Stop: 05/18/18 22:01 Last Admin: 11/17/17 03:44 Dose: 0.63 mg Lidocaine HCl (Lidoderm 5% Patch) 1 each TP DAILY PRN PRN Reason: Pain Stop: 05/18/18 14:57 Loratadine (Claritin) 10 mg PO DAILY PRN PRN Reason: Allergy Symptoms Metoprolol Succinate (Toprol Xl) 50 mg PO BID KEENAN Stop: 05/18/18 21:01 Last Admin: 11/17/17 09:21 Dose: 50 mg Naloxone HCl (Narcan) 0.4 mg IVP Q2MIN PRN PRN Reason: SEE COMMENTS Stop: 05/18/18 14:50 Nitroglycerin (Nitroglycerin) 0.4 mg SL Q5MIN PRN PRN Reason: CHEST PAIN Stop: 05/18/18 14:57 Last Admin: 11/17/17 00:07 Dose: 0.4 mg Omeprazole (Prilosec) 20 mg PO BID PRN; Protocol PRN Reason: Heartburn Stop: 05/18/18 14:57 Ondansetron HCl (Zofran Odt) 8 mg PO BID PRN PRN Reason: Nausea Last Admin: 11/17/17 06:07 Dose: 8 mg Oxycodone HCl (Roxicodone) 10 mg PO Q6HR PRN PRN Reason: Severe Pain Stop: 05/18/18 14:50 Rivaroxaban (Xarelto) 15 mg PO 1700 KEENAN Stop: 05/19/18 17:01 Rosuvastatin Calcium (Crestor) 10 mg PO HS KEENAN Stop: 05/19/18 21:01 Tamsulosin HCl (Flomax) 0.4 mg PO DAILY KEENAN PRN Reason: Protocol Stop: 05/19/18 09:01 Last Admin: 11/17/17 09:20 Dose: 0.4 mg Vitamin D (Vitamin D) 1,000 unit PO DAILY KEENAN Stop: 05/19/18 09:01 Last Admin: 11/17/17 09:20 Dose: 1,000 unit Zolpidem Tartrate (Ambien) 5 mg PO HS PRN; Protocol PRN Reason: Sleep Stop: 05/18/18 14:57 Last Admin: 11/16/17 21:28 Dose: 5 mg - Imaging and Cardiology Echo: report reviewed Cardiac cath: report reviewed Other Results: 12 hour tele: avg HR 88 afib. - EKG Interpretation EKG results cardiology: personally reviewed Consult Discharge Plan - Plan [facility]: [facility] [Primary Care Provider] -
[2017-11-17] MEDS ORDERED: Dextrose Gel 15 GM/37.5 ML TUBE PO PRN ×2 (10:39)
[2017-11-17] MEDS ORDERED: *HR* Dextrose 50 % in Water (Syg) 50 ML SYRINGE IVP PRN (10:39)
[2017-11-17] MEDS ORDERED: D5% in Water 1,000 ML IVC PRN (10:39)
[2017-11-17] MEDS: Insulin LISPRO 300 UNITS/3 ML VIAL SQ SCH ×3 (12:17→22:32)
--- NOTE | 2017-11-17 12:32 | Internal Med Progress Note ---
Date of Encounter: 11/17/17 Time of Encounter: 15:24 - Assessment and plan (1) Acute exacerbation of CHF (congestive heart failure) Current Visit: Yes Status: Acute Assessment and plan: Mild CHF exacerbation Cardiology on board continue IV lasix, will decrease to Lasix IV qdaily monitor I/Os daily weight fluid restriction diet O2 supplementation as needed Qualifiers: Congestive heart failure type: diastolic Qualified Code(s): I50.33 - Acute on chronic diastolic (congestive) heart failure (2) Atrial fibrillation Current Visit: Yes Status: Chronic Assessment and plan: Rate controlled with Metoprolol anticoagulated with Xarelto Qualifiers: Atrial fibrillation type: paroxysmal Qualified Code(s): I48.0 - Paroxysmal atrial fibrillation (3) Chest pain Current Visit: Yes Status: Resolved Assessment and plan: resolved at this time continue home meds Qualifiers: Chest pain type: unspecified Qualified Code(s): R07.9 - Chest pain, unspecified (4) COPD (chronic obstructive pulmonary disease) Current Visit: Yes Status: Chronic Assessment and plan: not in acute exacerbation continue home meds Qualifiers: COPD type: chronic bronchitis Chronic bronchitis type: simple Qualified Code(s): J41.0 - Simple chronic bronchitis (5) Coronary artery disease Current Visit: Yes Status: Chronic Qualifiers: Coronary Disease-Associated Artery/Lesion type: [place] artery [place] vs. transplanted heart: [place] heart Associated angina: without angina Qualified Code(s): I25.10 - Atherosclerotic heart disease of [place] coronary artery without angina pectoris (6) Diabetes mellitus Current Visit: No Status: Chronic Assessment and plan: Sliding scale insulin algorithm monitor FS and BG ADA diet will adjust insulin dosing as per insulin requirements Qualifiers: Diabetes mellitus type: type 2 Diabetes mellitus complication status: without complication Diabetes mellitus senior care insulin use: without betting clerk use Qualified Code(s): E11.9 - Type 2 diabetes mellitus without complications (7) DVT prophylaxis Current Visit: Yes Status: Acute Assessment and plan: On xarelto (8) Elevated troponin Current Visit: Yes Status: Acute Assessment and plan: No acute ischemic changes noted to EKG currently chest pain free cardiology on board continue home dose of asa, statin, bb anticoagulated with Xarelto (9) HLD (hyperlipidemia) Current Visit: Yes Status: Chronic Assessment and plan: continue statin therapy Qualifiers: Hyperlipidemia type: pure hypercholesterolemia Qualified Code(s): E78.00 - Pure hypercholesterolemia, unspecified; E78.0 - Pure hypercholesterolemia (10) HTN (hypertension) Current Visit: Yes Status: Chronic Assessment and plan: BP within acceptable range continue home meds Qualifiers: Hypertension type: essential hypertension Qualified Code(s): I10 - Essential (primary) hypertension (11) NATALIA (acute kidney injury) Current Visit: Yes Status: Acute Assessment and plan: Likely secondary to diuretic therapy Will decreased Lasix to 40mg IV qd closely monitor renal function - Subjective Interval history: Pt seen and examined at bedside. Noted to have mild increase in serum creatinine likely secondary to IV lasix. Currently saturating well on room air. Denies any chest pain. reports of being an every day smoker and is not ready to quit refused nicotine replacement therapy - Constitutional Vitals: Temp Pulse Resp BP Pulse Ox 98.2 F 106 17 108/73 96 11/17/17 11:05 11/17/17 11:05 11/17/17 11:05 11/17/17 11:05 11/17/17 11:05 General appearance: Present: cooperative, A&O X 3, pleasant, no acute distress, obese, answers questions appropriately - Head Head exam: Present: atraumatic, normocephalic - Eye Eye exam: Present: conjuntiva pink, sclera anicteric - Respiratory Respiratory exam: Present: wheezes (mild expiratory wheezing in lower bases, mild bibasilar rales). Absent: respiratory distress - Cardiovascular Cardiovascular exam: Present: RRR, +S1, +S2. Absent: diastolic murmur, gallop, rubs, systolic murmur - GI/Abdominal GI/Abdominal exam: Present: normal bowel sounds, soft, no peritoneal signs. Absent: distended, tenderness - Extremities Exam Extremities exam: Present: warm, radial pulses palpable and symmetrical. Absent : calf tenderness, pedal edema - Neurological Exam Neurological exam: Present: alert, oriented X3 Internal Medicine: Result - Labs CBC & Chem 7: 11/17/17 05:10 11/17/17 05:10 Labs: Short CBC 11/17/17 Range/Units 05:10 WBC 6.3 (4.3-11.1) K/mcL Hgb 15.0 (12.9-16.9) g/dL Hct 44.3 (37.5-50.1) % Plt Count 173 (140-400) K/mcL Neutrophils # 4.4 (1.6-8.9) K/mcL BMP 11/17/17 05:10 Sodium 139 Potassium 3.5 Chloride 104 Carbon Dioxide 27 BUN 25 H Creatinine 1.41 H Glucose 142 H Calcium 8.5 L Cardiac Enzymes 11/16/17 11/17/17 Range/Units 20:00 05:10 Troponin I 0.11 H* 0.05 H* (< 0.04) ng/mL Liver Function 11/17/17 Range/Units 05:10 Total Bilirubin 0.9 (0.3-1.0) mg/dL AST 17 (13-39) Units/L ALT 16 (7-52) Units/L Alkaline Phosphatase 72 (34-104) Units/L Albumin 3.8 (3.5-5.7) g/dL - ABG Interpretation ABG results: PT/INR, D-dimer PT 12.7 Seconds (9.4-12.1) H 11/17/17 05:10 - Impressions Impressions Echocardiogram 11/17/17 14:59 Impressions: Technically challenging due to body habitus. Grossly normal LV systolic function. Consider use of Definity for quantification of LV EF. LV size appears normal. LV wall thickness measurements are not well obtained. Indeterminate diastolic function. RV is not well visualized. No significant valvular dysfunction. No pulmonary hypertension by TR gradient. Left Ventricular Wall Motion: Rest Echo Findings The apex, apical inferior, mid inferior, basal inferior, apical anterior, mid anterior, basal anterior, basal anterior septal and basal inferior lateral nettles were not visualized. All other wall segments showed normal motion. Findings: Study Quality * Technically challenging due to body habitus. ECG Findings * Atrial fibrillation. Left Ventricle * Grossly normal LV systolic function. * LV size appears normal. LV wall thickness measurements are not well obtained. * Indeterminate diastolic function. Right Ventricle * RV is not well visualized. Left Atrium * Left atrium is not well visualized. Right Atrium * Right atrium is not well visualized. Aortic Valve * Aortic valve not well visualized. * No aortic regurgitation. * No aortic stenosis. Tricuspid Valve * Normal tricuspid valve structure. * Trivial TR. Mitral Valve * Mitral valve not well visualized. * No mitral regurgitation. * No mitral stenosis. Pulmonic Valve * Pulmonic valve is not well visualized. * Doppler not well obtained. Pulmonary Artery * Pulmonary artery not well visualized. Aorta * Not well visualized. Interatrial Septum * Interatrial septum not well evaluated. IVC * The IVC is not well evaluated. Consult Discharge Plan - Plan [facility]errals: [facility] [Primary Care Provider] -
--- NOTE | 2017-11-17 16:45 | Electrocardiograph Report ---
[place] [id number] Test Date: 2017-11-17 Pat Name: Stew Zapata Department: 112 Room: 2A26 Gender: M Account Consultant: JESUS : 1950 Requested By: Judith Collins Order Number: [id number] Reading MD: Citlalli Felipe Measurements Intervals [place] Rate: 110 P: GA: 0 QRS: -46 QRSD: 110 T: 73 QT: 376 QTc: 441 Interpretive Statements ATRIAL FIBRILLATION WITH RAPID VENTRICULAR RESPONSE LEFT AXIS DEVIATION NONSPECIFIC ST & T-WAVE ABNORMALITY Electronically Signed On 11-17-2017 16:44:09 EST by Citlalli Felipe
[2017-11-17] MEDS ORDERED: *HR* Rivaroxaban 10 MG TABLET PO SCH (17:00)
--- NOTE | 2017-11-17 17:15 | Electrocardiograph Report ---
[place] [id number] Test Date: 2017-11-16 Pat Name: Stew Zapata Department: 102 Room: 2A26 Gender: M Consulting Psychiatrist: Dorcas : 1950 Requested By: Parker Uriarte Order Number: [id number] Reading MD: Citlalli Felipe Measurements Intervals [place] Rate: 95 P: DC: 0 QRS: -38 QRSD: 106 T: 79 QT: 382 QTc: 434 Interpretive Statements ARTIFACT LIMITS INTERPRETATION OF UNDERLYING RHYTHM LEFTWARD AXIS IVCD Electronically Signed On 11-17-2017 17:13:56 EST by Citlalli Felipe
[2017-11-17] MEDS: *HR* Rivaroxaban 15 MG TABLET PO SCH (17:25)
[2017-11-17] MEDS: Acetaminophen 325 MG TABLET PO PRN (20:30)
[2017-11-18] MEDS: Levalbuterol Neb 0.63 MG/3 ML IH SCH ×4 (03:40→20:45)
[2017-11-18 04:32] LABS: Basophils % 0.7 %; Eosinophils # 0.1 K/mcL (0.0-0.6); Eosinophils % 1.1 %; Hematocrit 42.7 % (37.5-50.1); Hemoglobin 14.6 g/dL (12.9-16.9); Immature Granulocytes % 0.4 % (0-4); Lymphocytes # 1.4 K/mcL (0.6-4.6); Mean Corpuscular HGB Conc 34.2 g/dL (31.6-35.5); Mean Corpuscular Hemoglobin 31.9 pg (28.0-33.3); Mean Corpuscular Volume 93.4 fL (83.0-100.0); Mean Platelet Volume 9.4 fL (9.4-12.4); Monocytes # 0.6 K/mcL (0.0-1.3); Monocytes % 9.8 %; Neutrophils # 3.6 K/mcL (1.6-8.9); Platelet Count 141 K/mcL (140-400); Red Blood Count 4.57 M/mcL (4.19-5.50); Red Cell Distribution Width 12.3 % (11.5-14.5)
[2017-11-18 05:10] LABS: Albumin 3.6 g/dL (3.5-5.7); Albumin/Globulin Ratio 1.8 (1.1-2.2); Bilirubin,Total 0.6 mg/dL (0.3-1.0); Calcium 8.8 mg/dL (8.6-10.3); Magnesium 1.9 mg/dL (1.6-2.6); Phosphorous 3.6 mg/dL (2.7-4.5); Potassium 3.6 mEq/L (3.5-5.1); Total Protein 5.6 g/dL (6.4-8.9)
[2017-11-18] MEDS: Cholecalciferol (D-3) 1,000 UNIT TABLET PO SCH (08:03)
[2017-11-18] MEDS: BuPROPion SR (12 HR) 150 MG TABLET PO SCH ×2 (08:03→20:35)
[2017-11-18] MEDS: Aspirin Enteric Coated 81 MG Tablet PO SCH (08:04)
[2017-11-18] MEDS: Insulin LISPRO 300 UNITS/3 ML VIAL SQ SCH ×4 (08:05→22:08)
[2017-11-18] MEDS: Metoprolol XL (24 HR) Succ 50 MG TAB.ER.24H PO SCH ×3 (08:06→20:35)
[2017-11-18] MEDS: Finasteride 5 MG TABLET PO SCH (08:06)
[2017-11-18] MEDS: Isosorbide MONOnitrate (24 HR) 30 MG TAB.ER.24H PO SCH (08:07)
--- NOTE | 2017-11-18 08:54 | Cardiology Progress Note ---
Date of Encounter: 11/18/17 Time of Encounter: 08:00 Assessment and Plan (1) Elevated troponin Current Visit: Yes Status: Acute Troponin 0.16 ([facility]), 0.09, 0.11, 0.05 likely secondary to dCHF exacerbation. No acute ischemic ECG changes. Patient is pain free upon exam. [facility] 09/2014: minimal, non-obstructive CAD. BNP 1058 upon admission, no overt volume overload on exam. TTE: LV function appears grossly normal, poor quality study. Should consider ordering with definity with repeated studies in the future. No heparin gtt d/t Xarelto therapy. Continue asa, statin, and betablocker. No further testing warranted at this time. (2) Atrial fibrillation Current Visit: Yes Status: Chronic Long standing hx of PAF. Allergy to Tikosyn. Unable to undergo cryo ablation in February 2017 d/t abnormal anatomy. 12 hour tele: avg HR 88 afib. Rate controlled on current medications. On Xarelto for AC. Qualifiers: Atrial fibrillation type: persistent Qualified Code(s): I48.1 - Persistent atrial fibrillation (3) CHF exacerbation Current Visit: Yes Status: Acute Mild diastolic CHF exacerbation. BNP elevated, 1058. CXR ([facility]): pulmonary congestion. No edema/volume overload upon exam. Last TTE 2016: EF 55%, no significant valvular dysfunction, normal wall motion SCr continues to worsen with IV diuresis, would recommend changing to po maintenance dose. Repeat TTE shows grossly normal LV function. Strict I&Os, daily weights, Na/fluid restriction. Qualifiers: Congestive heart failure type: unspecified Qualified Code(s): I50.9 - Heart failure, unspecified Discussion w patient/family: The assessment and plan as outlined above was discussed with the patient and/or family members who expressed understanding and agreement. All questions were answered. Thank you for involving us in the care of your patient. Please call with any questions. The patient will be discussed and reviewed with Dr. Carreon; changes to be made accordingly. Subjective Principal diagnosis: CHF exacerbation/CP/Afib Interval history: Seen and examined. Reports BP have been dropping, upon review, BP's appear stable. Reports intermittent chest pain since admission, lasts only seconds. Objective Vital Signs, Last 4 Hours Temp Pulse Resp BP Pulse Ox 11/18/17 07:16 97.8 F 94 18 129/84 96 11/18/17 05:53 98.2 F 90 18 145/86 97 General: Conversant, No Apparent Distress HEENT: Atraumatic, Normocephaly, Mucus Membranes Moist Cardiac: Other (irregulary irregular) Lungs: Normal Breath Sounds Neuro: Alert and responsive Abdomen: Soft Skin: No rashes noted on visualized skin Musculoskeletal: No Chest Wall Tenderness Extremities: No Edema, Normal Pulses Results 11/18/17 04:20 11/18/17 04:20 Lab Results 11/18/17 11/18/17 04:20 04:20 WBC 5.6 Hgb 14.6 Hct 42.7 Plt Count 141 Sodium 139 Potassium 3.6 Chloride 104 Carbon Dioxide 29 BUN 32 H Creatinine 1.48 H Glucose 145 H Calcium 8.8 Magnesium 1.9 Total Bilirubin 0.6 AST 14 ALT 15 Alkaline Phosphatase 69 Active Medications Acetaminophen (Tylenol) 650 mg PO Q6HR PRN PRN Reason: Mild Pain/Fever Stop: 05/18/18 14:50 Last Admin: 11/17/17 20:30 Dose: 650 mg Hydrocodone Bitart/Acetaminophen ([place] 5-325 Mg) 1 tab PO Q6HR PRN PRN Reason: Moderate Pain Stop: 05/18/18 14:50 Last Admin: 11/16/17 17:40 Dose: 1 tab Albuterol Sulfate (Albuterol Inhaler) 2 puff IH QID PRN PRN Reason: Shortness Of Breath Stop: 05/18/18 14:57 Artificial Tears ([place] Tears) 1 drop BOTH EYES TID PRN PRN Reason: Dry Eye(s) Aspirin (Aspirin Ec) 81 mg PO DAILY [facility] Stop: 05/19/18 09:01 Last Admin: 11/18/17 08:04 Dose: 81 mg Bisacodyl (Dulcolax) 10 mg PO QPM PRN PRN Reason: Constipation Stop: 05/18/18 14:57 Last Admin: 11/17/17 17:56 Dose: 10 mg Bupropion HCl (Wellbutrin Sr) 150 mg PO BID KEENAN Stop: 05/18/18 21:01 Last Admin: 11/18/17 08:03 Dose: 150 mg Calcium Carbonate (Tums) 500 mg PO BID KEENAN Stop: 05/18/18 21:01 Last Admin: 11/18/17 08:03 Dose: 500 mg Chlorthalidone (Chlorthalidone) 12.5 mg PO DAILY [facility] Stop: 05/19/18 09:01 Last Admin: 11/18/17 08:03 Dose: 12.5 mg Dextrose/Water (Dextrose 50% (Syg)) 25 ml IVP AD PRN PRN Reason: Hypoglycemia Stop: 05/19/18 10:40 Docusate Sodium (Colace) 200 mg PO BID [facility] PRN Reason: Protocol Stop: 05/18/18 21:01 Last Admin: 11/18/17 08:04 Dose: 200 mg Ferrous Sulfate (Ferrous Sulfate) 325 mg PO BIDWM [facility] Stop: 05/18/18 17:01 Last Admin: 11/18/17 08:03 Dose: 325 mg Finasteride (Proscar) 5 mg PO DAILY [facility] PRN Reason: Protocol Stop: 05/19/18 09:01 Last Admin: 11/18/17 08:06 Dose: 5 mg Furosemide (Lasix) 40 mg IVP DAILY [facility] Stop: 05/20/18 09:01 Last Admin: 11/18/17 08:05 Dose: 40 mg Glucagon (Glucagen) 1 mg IM ONCE PRN PRN Reason: Hypoglycemia Stop: 05/19/18 10:40 Glucose (Gluctose) 15 gm PO ONCE PRN PRN Reason: Hypoglycemia Stop: 05/19/18 10:40 Glucose (Gluctose) 30 gm PO ONCE PRN PRN Reason: Hypoglycemia Stop: 05/19/18 10:40 Dextrose (Dextrose 5%) 1,000 mls @ 100 mls/hr IVC .Q10H PRN PRN Reason: HYPOGLYCEMIA Stop: 05/19/18 10:40 Insulin Human Lispro (Humalog) 0 units SQ HS [facility] PRN Reason: Protocol Stop: 05/19/18 21:01 Last Admin: 11/17/17 22:32 Dose: Not Given Insulin Human Lispro (Humalog) 0 units SQ TIDAC [facility] PRN Reason: Protocol Stop: 05/19/18 11:31 Last Admin: 11/18/17 08:05 Dose: 2 units Isosorbide Mononitrate (Imdur) 30 mg PO DAILY [facility] Stop: 05/19/18 09:01 Last Admin: 11/18/17 08:07 Dose: 30 mg Ketoconazole (Nizoral Cream) 1 appl TP BID PRN PRN Reason: Rash Stop: 05/18/18 14:57 Levalbuterol HCl (Xopenex) 0.63 mg IH [id number] KEENAN Stop: 05/18/18 22:01 Last Admin: 11/18/17 03:40 Dose: Not Given Lidocaine HCl (Lidoderm 5% Patch) 1 each TP DAILY PRN PRN Reason: Pain Stop: 05/18/18 14:57 Loratadine (Claritin) 10 mg PO DAILY PRN PRN Reason: Allergy Symptoms Metoprolol Succinate (Toprol Xl) 50 mg PO BID KEENAN Stop: 05/18/18 21:01 Last Admin: 11/18/17 08:07 Dose: 50 mg Naloxone HCl (Narcan) 0.4 mg IVP Q2MIN PRN PRN Reason: SEE COMMENTS Stop: 05/18/18 14:50 Nitroglycerin (Nitroglycerin) 0.4 mg SL Q5MIN PRN PRN Reason: CHEST PAIN Stop: 05/18/18 14:57 Last Admin: 11/17/17 00:07 Dose: 0.4 mg Omeprazole (Prilosec) 20 mg PO BID PRN; Protocol PRN Reason: Heartburn Stop: 05/18/18 14:57 Ondansetron HCl (Zofran Odt) 8 mg PO BID PRN PRN Reason: Nausea Last Admin: 11/17/17 11:37 Dose: 8 mg Oxycodone HCl (Roxicodone) 10 mg PO Q6HR PRN PRN Reason: Severe Pain Stop: 05/18/18 14:50 Rivaroxaban (Xarelto) 15 mg PO 1700 KEENAN Stop: 05/19/18 17:01 Last Admin: 11/17/17 17:25 Dose: 15 mg Rosuvastatin Calcium (Crestor) 10 mg PO HS KEENAN Stop: 05/19/18 21:01 Last Admin: 11/17/17 20:29 Dose: 10 mg Tamsulosin HCl (Flomax) 0.4 mg PO DAILY KEENAN PRN Reason: Protocol Stop: 05/19/18 09:01 Last Admin: 11/18/17 08:03 Dose: 0.4 mg Vitamin D (Vitamin D) 1,000 unit PO DAILY KEENAN Stop: 05/19/18 09:01 Last Admin: 11/18/17 08:03 Dose: 1,000 unit Zolpidem Tartrate (Ambien) 5 mg PO HS PRN; Protocol PRN Reason: Sleep Stop: 05/18/18 14:57 Last Admin: 11/17/17 20:31 Dose: 5 mg - Imaging and Cardiology Echo: report reviewed Cardiac cath: report reviewed Other Results: 12 hour tele: avg HR=91 afib. - EKG Interpretation EKG results cardiology: personally reviewed Consult Discharge Plan - Plan [facility]errals: [facility] [Primary Care Provider] -
[2017-11-18] MEDS ORDERED: Furosemide 40 MG/4 ML VIAL IVP SCH (09:00)
--- NOTE | 2017-11-18 13:42 | Internal Med Progress Note ---
Date of Encounter: 11/18/17 Time of Encounter: 13:40 - Assessment and plan (1) Acute exacerbation of CHF (congestive heart failure) Current Visit: Yes Status: Acute Assessment and plan: Mild CHF exacerbation Cardiology on board d/c IV lasix, will hold lasix at this time as pt is clinically euvolemic monitor I/Os daily weight fluid restriction diet O2 supplementation as needed Qualifiers: Congestive heart failure type: diastolic Qualified Code(s): I50.33 - Acute on chronic diastolic (congestive) heart failure (2) Atrial fibrillation Current Visit: Yes Status: Chronic Assessment and plan: Rate controlled with Metoprolol anticoagulated with Xarelto Qualifiers: Atrial fibrillation type: persistent Qualified Code(s): I48.1 - Persistent atrial fibrillation (3) Chest pain Current Visit: Yes Status: Resolved Assessment and plan: resolved at this time continue home meds Qualifiers: Chest pain type: unspecified Qualified Code(s): R07.9 - Chest pain, unspecified (4) COPD (chronic obstructive pulmonary disease) Current Visit: Yes Status: Chronic Assessment and plan: not in acute exacerbation continue home meds Qualifiers: COPD type: chronic bronchitis Chronic bronchitis type: simple Qualified Code(s): J41.0 - Simple chronic bronchitis (5) Coronary artery disease Current Visit: Yes Status: Chronic Qualifiers: Coronary Disease-Associated Artery/Lesion type: [place] artery [place] vs. transplanted heart: [place] heart Associated angina: without angina Qualified Code(s): I25.10 - Atherosclerotic heart disease of [place] coronary artery without angina pectoris (6) Diabetes mellitus Current Visit: No Status: Chronic Assessment and plan: Sliding scale insulin algorithm monitor FS and BG ADA diet will adjust insulin dosing as per insulin requirements Qualifiers: Diabetes mellitus type: type 2 Diabetes mellitus complication status: without complication Diabetes mellitus chcf insulin use: without chcf use Qualified Code(s): E11.9 - Type 2 diabetes mellitus without complications (7) DVT prophylaxis Current Visit: Yes Status: Acute Assessment and plan: On xarelto (8) Elevated troponin Current Visit: Yes Status: Acute Assessment and plan: No acute ischemic changes noted to EKG currently chest pain free cardiology on board continue home dose of asa, statin, bb anticoagulated with Xarelto (9) HLD (hyperlipidemia) Current Visit: Yes Status: Chronic Assessment and plan: continue statin therapy Qualifiers: Hyperlipidemia type: pure hypercholesterolemia Qualified Code(s): E78.00 - Pure hypercholesterolemia, unspecified; E78.0 - Pure hypercholesterolemia (10) HTN (hypertension) Current Visit: Yes Status: Chronic Assessment and plan: BP within acceptable range continue home meds Qualifiers: Hypertension type: essential hypertension Qualified Code(s): I10 - Essential (primary) hypertension (11) NATALIA (acute kidney injury) Current Visit: Yes Status: Acute Assessment and plan: Likely secondary to diuretic therapy will hold lasix, however pt did receive today's lasix dose closely monitor renal function - Subjective Interval history: Pt seen and examined at bedside. Reports of improvement in his breathing however noted to have worsening of renal function and clinically appears dry. Will hold Lasix at this time. Pt did receive today's morning dose of lasix. PT evaluation recommended swing bed and patient willing to go to a ID swing bed. sand car worker consulted for placement - Constitutional Vitals: Temp Pulse Resp BP Pulse Ox 97.4 F L 77 18 105/66 95 11/18/17 11:31 11/18/17 11:31 11/18/17 11:31 11/18/17 11:31 11/18/17 11:31 General appearance: Present: cooperative, A&O X 3, pleasant, no acute distress, obese, answers questions appropriately - Head Head exam: Present: atraumatic, normocephalic - Eye Eye exam: Present: conjuntiva pink, sclera anicteric - Respiratory Respiratory exam: Present: CTAB. Absent: accessory muscle use, rales, rhonchi, wheezes - Cardiovascular Cardiovascular exam: Present: RRR, +S1, +S2. Absent: diastolic murmur, gallop, rubs, systolic murmur - GI/Abdominal GI/Abdominal exam: Present: normal bowel sounds, soft, no peritoneal signs. Absent: distended, tenderness - Extremities Exam Extremities exam: Present: warm, radial pulses palpable and symmetrical. Absent : calf tenderness, pedal edema - Neurological Exam Neurological exam: Present: alert, oriented X3 - Psychiatric Psychiatric exam: Present: normal affect, normal mood Internal Medicine: Result - Labs CBC & Chem 7: 11/18/17 04:20 11/18/17 04:20 Labs: Short CBC 11/18/17 Range/Units 04:20 WBC 5.6 (4.3-11.1) K/mcL Hgb 14.6 (12.9-16.9) g/dL Hct 42.7 (37.5-50.1) % Plt Count 141 (140-400) K/mcL Neutrophils # 3.6 (1.6-8.9) K/mcL BMP 11/18/17 04:20 Sodium 139 Potassium 3.6 Chloride 104 Carbon Dioxide 29 BUN 32 H Creatinine 1.48 H Glucose 145 H Calcium 8.8 Liver Function 11/18/17 Range/Units 04:20 Total Bilirubin 0.6 (0.3-1.0) mg/dL AST 14 (13-39) Units/L ALT 15 (7-52) Units/L Alkaline Phosphatase 69 (34-104) Units/L Albumin 3.6 (3.5-5.7) g/dL - ABG Interpretation ABG results: PT/INR, D-dimer PT 12.7 Seconds (9.4-12.1) H 11/17/17 05:10 Consult Discharge Plan - Plan [facility]errals: [facility] [Primary Care Provider] -
[2017-11-18] MEDS: *HR* Rivaroxaban 15 MG TABLET PO SCH (16:00)
[2017-11-18] MEDS: Acetaminophen 325 MG TABLET PO PRN (22:08)
[2017-11-19] MEDS: Levalbuterol Neb 0.63 MG/3 ML IH SCH ×4 (03:43→21:19)
[2017-11-19 04:45] LABS: Basophils % 0.8 %; Eosinophils # 0.1 K/mcL (0.0-0.6); Eosinophils % 1.9 %; Hemoglobin 14.2 g/dL (12.9-16.9); Lymphocytes # 1.3 K/mcL (0.6-4.6); Lymphocytes % 23.8 %; Mean Corpuscular Hemoglobin 31.8 pg (28.0-33.3); Mean Corpuscular Volume 96.2 fL (83.0-100.0); Mean Platelet Volume 9.3 fL (9.4-12.4); Monocytes # 0.5 K/mcL (0.0-1.3); Monocytes % 9.1 %; Neutrophils # 3.3 K/mcL (1.6-8.9); Platelet Count 152 K/mcL (140-400); Red Blood Count 4.47 M/mcL (4.19-5.50); Red Cell Distribution Width 12.2 % (11.5-14.5); Segmented Neutrophils % 63.4 %
[2017-11-19 05:19] LABS: Albumin 3.6 g/dL (3.5-5.7); Albumin/Globulin Ratio 1.8 (1.1-2.2); Bilirubin,Total 0.7 mg/dL (0.3-1.0); Calcium 8.9 mg/dL (8.6-10.3); Magnesium 1.8 mg/dL (1.6-2.6); Phosphorous 4.1 mg/dL (2.7-4.5); Potassium 3.6 mEq/L (3.5-5.1); Total Protein 5.6 g/dL (6.4-8.9)
[2017-11-19] MEDS: Finasteride 5 MG TABLET PO SCH (08:41)
[2017-11-19] MEDS: Cholecalciferol (D-3) 1,000 UNIT TABLET PO SCH (08:41)
[2017-11-19] MEDS: BuPROPion SR (12 HR) 150 MG TABLET PO SCH ×2 (08:41→21:32)
[2017-11-19] MEDS: Aspirin Enteric Coated 81 MG Tablet PO SCH (08:41)
[2017-11-19] MEDS: Isosorbide MONOnitrate (24 HR) 30 MG TAB.ER.24H PO SCH (08:41)
[2017-11-19] MEDS: Metoprolol XL (24 HR) Succ 50 MG TAB.ER.24H PO SCH ×2 (08:41→21:32)
[2017-11-19] MEDS: Insulin LISPRO 300 UNITS/3 ML VIAL SQ SCH ×4 (08:47→21:20)
[2017-11-19] MEDS ORDERED: Furosemide 40 MG TABLET PO SCH (09:00)
[2017-11-19] MEDS ORDERED: *HR* Promethazine 25 MG/ML VIAL ONE (12:50)
[2017-11-19] MEDS: *HR* Promethazine 25 MG/ML VIAL IVP PRN ×2 (12:52→19:28)
--- NOTE | 2017-11-19 13:30 | Internal Med Progress Note ---
Date of Encounter: 11/19/17 Time of Encounter: 13:28 - Assessment and plan (1) Acute exacerbation of CHF (congestive heart failure) Current Visit: Yes Status: Acute Assessment and plan: Mild CHF exacerbation Cardiology on board restarted PO lasix by cardiology, will closely monitor renal function monitor I/Os daily weight fluid restriction diet O2 supplementation as needed Qualifiers: Congestive heart failure type: diastolic Qualified Code(s): I50.33 - Acute on chronic diastolic (congestive) heart failure (2) Atrial fibrillation Current Visit: Yes Status: Chronic Assessment and plan: Rate controlled with Metoprolol anticoagulated with Xarelto Qualifiers: Atrial fibrillation type: persistent Qualified Code(s): I48.1 - Persistent atrial fibrillation (3) Chest pain Current Visit: Yes Status: Resolved Assessment and plan: resolved at this time continue home meds Qualifiers: Chest pain type: unspecified Qualified Code(s): R07.9 - Chest pain, unspecified (4) COPD (chronic obstructive pulmonary disease) Current Visit: Yes Status: Chronic Assessment and plan: not in acute exacerbation continue home meds Qualifiers: COPD type: chronic bronchitis Chronic bronchitis type: simple Qualified Code(s): J41.0 - Simple chronic bronchitis (5) Coronary artery disease Current Visit: Yes Status: Chronic Qualifiers: Coronary Disease-Associated Artery/Lesion type: [place] artery [place] vs. transplanted heart: [place] heart Associated angina: without angina Qualified Code(s): I25.10 - Atherosclerotic heart disease of [place] coronary artery without angina pectoris (6) Diabetes mellitus Current Visit: No Status: Chronic Assessment and plan: Sliding scale insulin algorithm monitor FS and BG ADA diet will adjust insulin dosing as per insulin requirements Qualifiers: Diabetes mellitus type: type 2 Diabetes mellitus complication status: without complication Diabetes mellitus senior care insulin use: without terminal operator use Qualified Code(s): E11.9 - Type 2 diabetes mellitus without complications (7) DVT prophylaxis Current Visit: Yes Status: Acute Assessment and plan: On xarelto (8) Elevated troponin Current Visit: Yes Status: Acute Assessment and plan: No acute ischemic changes noted to EKG currently chest pain free cardiology on board continue home dose of asa, statin, bb anticoagulated with Xarelto (9) HLD (hyperlipidemia) Current Visit: Yes Status: Chronic Assessment and plan: continue statin therapy Qualifiers: Hyperlipidemia type: pure hypercholesterolemia Qualified Code(s): E78.00 - Pure hypercholesterolemia, unspecified; E78.0 - Pure hypercholesterolemia (10) HTN (hypertension) Current Visit: Yes Status: Chronic Assessment and plan: Noted to be hypertensive today will adjust home medications Hydralazine 10mg IV q6h prn SBP>160 will closely monitor BP Qualifiers: Hypertension type: essential hypertension Qualified Code(s): I10 - Essential (primary) hypertension (11) NATALIA (acute kidney injury) Current Visit: Yes Status: Acute Assessment and plan: Likely secondary to diuretic therapy changed to PO lasix closely monitor renal function - Subjective Interval history: Pt seen and examined at bedside. Reports of being nauseous and has a headache. Noted to be hypertensive Will adjust home meds for better BP control - Constitutional Vitals: Temp Pulse Resp BP Pulse Ox 98.8 F 66 14 189/91 95 11/19/17 11:20 11/19/17 11:20 11/19/17 11:20 11/19/17 11:20 11/19/17 11:20 General appearance: Present: cooperative, A&O X 3, pleasant, no acute distress, obese, answers questions appropriately - Head Head exam: Present: atraumatic, normocephalic - Eye Eye exam: Present: conjuntiva pink, sclera anicteric - Respiratory Respiratory exam: Present: CTAB. Absent: respiratory distress, wheezes - Cardiovascular Cardiovascular exam: Present: RRR, +S1, +S2. Absent: diastolic murmur, gallop, rubs, systolic murmur - GI/Abdominal GI/Abdominal exam: Present: normal bowel sounds, soft, no peritoneal signs. Absent: distended, tenderness - Extremities Exam Extremities exam: Present: warm, radial pulses palpable and symmetrical. Absent : calf tenderness, pedal edema - Neurological Exam Neurological exam: Present: alert, oriented X3 - Psychiatric Psychiatric exam: Present: normal affect, normal mood Internal Medicine: Result - Labs CBC & Chem 7: 11/19/17 04:30 11/19/17 04:30 Labs: Short CBC 11/19/17 Range/Units 04:30 WBC 5.3 (4.3-11.1) K/mcL Hgb 14.2 (12.9-16.9) g/dL Hct 43.0 (37.5-50.1) % Plt Count 152 (140-400) K/mcL Neutrophils # 3.3 (1.6-8.9) K/mcL BMP 11/19/17 04:30 Sodium 136 Potassium 3.6 Chloride 100 Carbon Dioxide 30 H BUN 30 H Creatinine 1.45 H Glucose 159 H Calcium 8.9 Liver Function 11/19/17 Range/Units 04:30 Total Bilirubin 0.7 (0.3-1.0) mg/dL AST 13 (13-39) Units/L ALT 15 (7-52) Units/L Alkaline Phosphatase 69 (34-104) Units/L Albumin 3.6 (3.5-5.7) g/dL - ABG Interpretation ABG results: PT/INR, D-dimer PT 12.7 Seconds (9.4-12.1) H 11/17/17 05:10 Consult Discharge Plan - Plan [facility]errals: [facility] [Primary Care Provider[facility] - (possible [facility])
[2017-11-19] MEDS ORDERED: *HR* Labetalol 20 MG/4 ML SYRINGE IVP ONE ×2 (13:35→15:01)
[2017-11-19] MEDS: Acetaminophen 325 MG TABLET PO PRN (13:48)
[2017-11-19] MEDS: amLODIPine 5 MG TABLET PO SCH (18:12)
[2017-11-19] MEDS: *HR* Rivaroxaban 15 MG TABLET PO SCH (18:15)
[2017-11-19 20:42] LABS: Bilirubin,Urine Negative (Negative); Blood,Urine Negative (Negative); Clarity,Urine Clear (Clear); Color,Urine Yellow (Yellow); Glucose,Urine (UA) Normal (Normal); Ketones,Urine Negative (Negative); Leukocyte Esterase,Urine Negative (Negative); Nitrite,Urine Negative (Negative); PH,Urine 5.5 pH Units (5.0-8.0); Protein,Urine Negative (Neg-Trace); Specific Gravity,Urine 1.026 (1.010-1.025); Urobilinogen,Urine Normal (Normal)
[2017-11-19] MEDS: Ondansetron ODT 4 MG TAB.RAPDIS PO PRN (21:32)
[2017-11-19] MEDS ORDERED: Ondansetron 4 MG/2 ML VIAL IVP PRN (21:58)
[2017-11-20] MEDS: Levalbuterol Neb 0.63 MG/3 ML IH SCH ×2 (03:35→08:01)
[2017-11-20 04:55] LABS: Basophils % 0.5 %; Eosinophils # 0.1 K/mcL (0.0-0.6); Eosinophils % 1.2 %; Hematocrit 44.3 % (37.5-50.1); Hemoglobin 14.9 g/dL (12.9-16.9); Immature Granulocytes % 0.3 % (0-4); Lymphocytes # 1.4 K/mcL (0.6-4.6); Lymphocytes % 21.9 %; Mean Corpuscular HGB Conc 33.6 g/dL (31.6-35.5); Mean Corpuscular Hemoglobin 31.8 pg (28.0-33.3); Mean Corpuscular Volume 94.5 fL (83.0-100.0); Mean Platelet Volume 9.3 fL (9.4-12.4); Monocytes # 0.6 K/mcL (0.0-1.3); Monocytes % 8.4 %; Neutrophils # 4.4 K/mcL (1.6-8.9); Platelet Count 179 K/mcL (140-400); Red Blood Count 4.69 M/mcL (4.19-5.50); Segmented Neutrophils % 67.7 %
[2017-11-20 05:13] LABS: Alanine Aminotransferase 14 Units/L (7-52); Albumin 3.9 g/dL (3.5-5.7); Albumin/Globulin Ratio 1.9 (1.1-2.2); Alkaline Phosphatase 74 Units/L (34-104); Aspartate Amino Transferase 13 Units/L (13-39); BUN/Creatinine Ratio 18 (6-26); Bilirubin,Total 0.7 mg/dL (0.3-1.0); Blood Urea Nitrogen 24 mg/dL (8-23); Calcium 8.8 mg/dL (8.6-10.3); Carbon Dioxide 30 mEq/L (23-29); Chloride 100 mEq/L (98-107); Globulin 2.1 g/dL (2.4-3.5); Glucose 164 mg/dL (70-105); Osmolality,Calculated 290 (280-300); Phosphorous 3.6 mg/dL (2.7-4.5); Potassium 3.2 mEq/L (3.5-5.1); Sodium 136 mEq/L (136-145); eGFR For African Americans > 60 (> 60); eGFR For Non-African Americans 52 (> 60)
[2017-11-20 07:49] VITALS: BP 139/83
[2017-11-20] MEDS: BuPROPion SR (12 HR) 150 MG TABLET PO SCH (08:40)
[2017-11-20] MEDS: Isosorbide MONOnitrate (24 HR) 30 MG TAB.ER.24H PO SCH (08:41)
[2017-11-20] MEDS: Metoprolol XL (24 HR) Succ 50 MG TAB.ER.24H PO SCH (08:41)
[2017-11-20] MEDS: amLODIPine 5 MG TABLET PO SCH (08:41)
[2017-11-20] MEDS: Aspirin Enteric Coated 81 MG Tablet PO SCH (08:41)
[2017-11-20] MEDS: Finasteride 5 MG TABLET PO SCH (08:42)
[2017-11-20] MEDS: Cholecalciferol (D-3) 1,000 UNIT TABLET PO SCH (08:42)
[2017-11-20] MEDS: Insulin LISPRO 300 UNITS/3 ML VIAL SQ SCH (08:43)
[2017-11-20] MEDS: *HR* Promethazine 25 MG/ML VIAL IVP PRN (08:58)
[2017-11-20] MEDS ORDERED: Furosemide 20 MG TABLET PO SCH (09:00)
--- NOTE | 2017-11-20 09:23 | Discharge Summary ---
Date of Encounter: 11/20/17 Time of Encounter: 08:55 - Discharge Diagnosis (1) Acute exacerbation of CHF (congestive heart failure) Priority: Primary Status: Acute Qualifiers: Congestive heart failure type: diastolic Qualified Code(s): I50.33 - Acute on chronic diastolic (congestive) heart failure (2) Atrial fibrillation Priority: Secondary Status: Chronic Qualifiers: Atrial fibrillation type: persistent Qualified Code(s): I48.1 - Persistent atrial fibrillation (3) Chest pain Priority: Primary Status: Resolved Qualifiers: Chest pain type: unspecified Qualified Code(s): R07.9 - Chest pain, unspecified (4) COPD (chronic obstructive pulmonary disease) Priority: Secondary Status: Chronic Qualifiers: COPD type: chronic bronchitis Chronic bronchitis type: simple Qualified Code(s): J41.0 - Simple chronic bronchitis (5) Coronary artery disease Priority: Secondary Status: Chronic Qualifiers: Coronary Disease-Associated Artery/Lesion type: [place] artery [place] vs. transplanted heart: [place] heart Associated angina: without angina Qualified Code(s): I25.10 - Atherosclerotic heart disease of [place] coronary artery without angina pectoris (6) Diabetes mellitus Priority: Secondary Status: Chronic Qualifiers: Diabetes mellitus type: type 2 Diabetes mellitus complication status: without complication Diabetes mellitus senior care insulin use: without rat exterminator use Qualified Code(s): E11.9 - Type 2 diabetes mellitus without complications (7) DVT prophylaxis Priority: Secondary Status: Acute (8) Elevated troponin Priority: Secondary Status: Acute (9) HLD (hyperlipidemia) Priority: Secondary Status: Chronic Qualifiers: Hyperlipidemia type: pure hypercholesterolemia Qualified Code(s): E78.00 - Pure hypercholesterolemia, unspecified; E78.0 - Pure hypercholesterolemia (10) HTN (hypertension) Priority: Secondary Status: Chronic Qualifiers: Hypertension type: essential hypertension Qualified Code(s): I10 - Essential (primary) hypertension (11) NATALIA (acute kidney injury) Priority: Secondary Status: Acute - Discharge Medications Prescriptions: HYDROcodone/Acet 5/325 mg [[place] 5-325 mg] 1 tab PO Q6HR PRN 3 Days #10 tablet PRN Reason: moderate to severe pain Promethazine [Phenergan] 12.5 mg PO Q6HR PRN #10 tablet PRN Reason: nausea/vomiting Home Medications: Ferrous Sulfate 325 mg PO BID 05/19/15 [History] GlipiZIDE [Glucotrol] 10 mg PO BID 05/19/15 [History] Isosorbide MONOnitrate (24 HR) [Imdur] 30 mg PO DAILY 05/19/15 [History] Nitroglycerin [Nitrostat] 0.4 mg SL Q5M PRN 05/19/15 [History] Rivaroxaban [Xarelto] 20 mg PO DAILY 05/19/15 [History] Zolpidem Tartrate [Ambien] 5 mg PO HS PRN 05/19/15 [History] buPROPion HCl [Bupropion HCl Sr] 150 mg PO BID 05/19/15 [History] Albuterol Sulfate [Albuterol Inhaler] 2 puff IH QID PRN 11/06/15 [History] Cholecalciferol (D-3) [Vitamin D] 3,000 unit PO DAILY 11/06/15 [History] Docusate Sodium [Colace] 200 mg PO BID 11/06/15 [History] Omeprazole [PriLOSEC] 20 mg PO BID PRN 01/25/16 [History] Acetaminophen [Tylenol] 1,000 mg PO DAILY PRN 11/08/16 [History] Alendronate Sodium [Fosamax] 70 mg PO QWEEK 11/08/16 [History] Bisacodyl [Dulcolax] 30 mg PO QPM PRN 11/08/16 [History] Calcium Carbonate/Vitamin D3 [Calcium 500-Vit D3 200 Tablet] 1 tab PO BID [History] Carboxymethylcellulose Sodium [Refresh Liquigel] 1 drop BOTH EYES TID PRN [History] Cetirizine HCl [Zyrtec] 10 mg PO DAILY PRN 11/08/16 [History] Finasteride [Proscar] 5 mg PO DAILY 11/08/16 [History] Ketoconazole 2% CRM [Nizoral Cream] 1 appl TP BID PRN 11/08/16 [History] Lidocaine Patch [Lidoderm 5% patch] 1 patch TP DAILY PRN 11/08/16 [History] Ondansetron HCl [Zofran] 8 mg PO BID PRN 11/08/16 [History] Rosuvastatin Calcium [Crestor] 10 mg PO DAILY 11/08/16 [History] Tamsulosin [Flomax] 0.4 mg PO DAILY 11/08/16 [History] Metoprolol XL (24 HR) Succ [Toprol Xl] 50 mg PO BID 02/27/17 [History] Aspirin [Lo-Dose Aspirin EC] 81 mg PO DAILY 05/05/17 [History] Chlorthalidone 12.5 mg PO DAILY 11/16/17 [History] Propylene Glycol/Peg 400 [Kro Lubricating Rlf 0.3-0.4%] 1 drop BOTH EYES TID 01/28 [History] Furosemide [Lasix] 20 mg PO DAILY tablet 11/20/17 [Rx] HYDROcodone/Acet 5/325 mg [[place] 5-325 mg] 1 tab PO Q6HR PRN 3 Days #10 tablet 11/20/17 [Rx] Promethazine [Phenergan] 12.5 mg PO Q6HR PRN #10 tablet 11/20/17 [Rx] amLODIPine [Norvasc] 5 mg PO DAILY tablet 11/20/17 [Rx] Allergies/Adverse Reactions: 3 Allergy/AdvReac Type Severity Reaction Status Date / Time aspirin Allergy Gastrointestinal Verified 08/22/17 09:03 Upset dofetilide [From Tikosyn] AdvReac Unknown Verified 08/22/17 09:03 Procedures/tests Complete & Pending: Procedures Performed prior 72 hours Category Date Time Status CT abd pelvis wo no iv no oral [CT] Routine Cat Scan 11/19/17 19:21 Completed EKG [ECG 12 lead ECG] [ECG] Stat Y 11/17/17 11:11 Completed Date of admission: 11/16/17 17:58 [facility] Consults: consult: Dr. Carreon Discharging clinician: Judith Collins Anticipated date of discharge: 11/20/17 - Patient Status Disposition: Transfer SNF Condition: Good Functional capacity at discharge: uses cane/walker Overall status at discharge: patient is back to baseline - Ambulatory Orders Ambulatory Orders: Basic Metabolic Panel [CHEM] Time Frame: 1 Week, Facility: [facility], Location: Lab - Discharge Instructions Follow Up With: [facility]Primary Care Provider[facility] - (possible [facility]) Additional Instructions: Please follow up with your primary care physician within five days after your discharge from the hospital. Please follow up with cardiology within one to two weeks after your discharge from the hospital. Your home medications have been changed as follows: 1. Amlodipine 5mg once a day has been added to your home medications. Closely monitor your blood pressure, hold all your blood pressure medications for systolic blood pressure less than 100. 2. Lasix 20mg once a day has been added to your home meds Please obtain prescribed lab work prior to your primary care physician's appointment to monitor your renal function. Resume all other medications as prescribed by your primary care physician. Please follow up with your primary care physician in regards to your abdominal aortic aneurysm. - Diet and Activity Activity: as per physical therapy Diet: diabetic diet, low fat, low cholesterol, low salt diet Hospital course: Mr. Zapata is a 67 year old male with PMH of afib, AAA, DM, COPD, CHF, HTN, HLD who was admitted for acute exacerbation of CHF and chest pain. Cardiology evaluated the patient. His chest pain resolved after initiation of diuretic therapy. He was noted to have NATALIA on CKD due to diuretic therapy due to which his lasix dose was adjusted. He was noted to have elevated BP yesterday evening due to which Amlodipine was added to his home meds. He was evaluated by physical therapy and ECF was recommended. Pt willing to go to ECF. He is currently back to his baseline respiratory status, chest pain free, and will be discharged to ECF today. Pt to follow up with cardiology, PCP after discharge. - Time Spent with Patient Total time spent providing and/or coordinating discharge services: Less than 30 minutes - Constitutional Vitals: Temp Pulse Resp BP Pulse Ox 98.2 F 72 18 139/83 96 11/20/17 07:48 11/20/17 07:48 11/20/17 07:48 11/20/17 07:48 11/20/17 07:48 General appearance: Present: cooperative, A&O X 3, pleasant, no acute distress, obese, answers questions appropriately - Head Head exam: Present: atraumatic, normocephalic - Eye Eye exam: Present: conjuntiva pink, sclera anicteric - Respiratory Respiratory exam: Present: CTAB. Absent: rales, respiratory distress, wheezes - Cardiovascular Cardiovascular exam: Present: RRR, +S1, +S2. Absent: diastolic murmur, gallop, rubs, systolic murmur - GI/Abdominal GI/Abdominal exam: Present: normal bowel sounds, soft, no peritoneal signs. Absent: distended, tenderness - Extremities Exam Extremities exam: Present: warm, radial pulses palpable and symmetrical. Absent : calf tenderness, pedal edema - Neurological Exam Neurological exam: Present: alert, oriented X3 - Psychiatric Psychiatric exam: Present: normal affect, normal mood
--- NOTE | 2017-11-20 09:31 | Physician Discharge Referral ---
ExtendedCare Referral Info Transfer To: [facility] Provider in Charge after Transfer: PCP - Diagnosis (1) Acute exacerbation of CHF (congestive heart failure) Priority: Primary Status: Acute (2) Atrial fibrillation Priority: Secondary Status: Chronic (3) Chest pain Priority: Primary Status: Resolved (4) COPD (chronic obstructive pulmonary disease) Priority: Secondary Status: Chronic (5) Coronary artery disease Priority: Secondary Status: Chronic (6) Diabetes mellitus Priority: Secondary Status: Chronic (7) DVT prophylaxis Priority: Secondary Status: Acute (8) Elevated troponin Priority: Secondary Status: Acute (9) HLD (hyperlipidemia) Priority: Secondary Status: Chronic (10) HTN (hypertension) Priority: Secondary Status: Chronic (11) NATALIA (acute kidney injury) Priority: Secondary Status: Acute - Transfer Medications Prescriptions: HYDROcodone/Acet 5/325 mg [[place] 5-325 mg] 1 tab PO Q6HR PRN 3 Days #10 tablet PRN Reason: moderate to severe pain Promethazine [Phenergan] 12.5 mg PO Q6HR PRN #10 tablet PRN Reason: nausea/vomiting Home Medications: Ferrous Sulfate 325 mg PO BID 05/19/15 [History] GlipiZIDE [Glucotrol] 10 mg PO BID 05/19/15 [History] Isosorbide MONOnitrate (24 HR) [Imdur] 30 mg PO DAILY 05/19/15 [History] Nitroglycerin [Nitrostat] 0.4 mg SL Q5M PRN 05/19/15 [History] Rivaroxaban [Xarelto] 20 mg PO DAILY 05/19/15 [History] Zolpidem Tartrate [Ambien] 5 mg PO HS PRN 05/19/15 [History] buPROPion HCl [Bupropion HCl Sr] 150 mg PO BID 05/19/15 [History] Albuterol Sulfate [Albuterol Inhaler] 2 puff IH QID PRN 11/06/15 [History] Cholecalciferol (D-3) [Vitamin D] 3,000 unit PO DAILY 11/06/15 [History] Docusate Sodium [Colace] 200 mg PO BID 11/06/15 [History] Omeprazole [PriLOSEC] 20 mg PO BID PRN 01/25/16 [History] Acetaminophen [Tylenol] 1,000 mg PO DAILY PRN 11/08/16 [History] Alendronate Sodium [Fosamax] 70 mg PO QWEEK 11/08/16 [History] Bisacodyl [Dulcolax] 30 mg PO QPM PRN 11/08/16 [History] Calcium Carbonate/Vitamin D3 [Calcium 500-Vit D3 200 Tablet] 1 tab PO BID [History] Carboxymethylcellulose Sodium [Refresh Liquigel] 1 drop BOTH EYES TID PRN [History] Cetirizine HCl [Zyrtec] 10 mg PO DAILY PRN 11/08/16 [History] Finasteride [Proscar] 5 mg PO DAILY 11/08/16 [History] Ketoconazole 2% CRM [Nizoral Cream] 1 appl TP BID PRN 11/08/16 [History] Lidocaine Patch [Lidoderm 5% patch] 1 patch TP DAILY PRN 11/08/16 [History] Ondansetron HCl [Zofran] 8 mg PO BID PRN 11/08/16 [History] Rosuvastatin Calcium [Crestor] 10 mg PO DAILY 11/08/16 [History] Tamsulosin [Flomax] 0.4 mg PO DAILY 11/08/16 [History] Metoprolol XL (24 HR) Succ [Toprol Xl] 50 mg PO BID 02/27/17 [History] Aspirin [Lo-Dose Aspirin EC] 81 mg PO DAILY 05/05/17 [History] Chlorthalidone 12.5 mg PO DAILY 11/16/17 [History] Propylene Glycol/Peg 400 [Kro Lubricating Rlf 0.3-0.4%] 1 drop BOTH EYES TID 01/28 [History] Furosemide [Lasix] 20 mg PO DAILY tablet 11/20/17 [Rx] HYDROcodone/Acet 5/325 mg [[place] 5-325 mg] 1 tab PO Q6HR PRN 3 Days #10 tablet 11/20/17 [Rx] Promethazine [Phenergan] 12.5 mg PO Q6HR PRN #10 tablet 11/20/17 [Rx] amLODIPine [Norvasc] 5 mg PO DAILY tablet 11/20/17 [Rx] Allergies/Adverse Reactions: 3 Allergy/AdvReac Type Severity Reaction Status Date / Time aspirin Allergy Gastrointestinal Verified 08/22/17 09:03 Upset dofetilide [From Tikosyn] AdvReac Unknown Verified 08/22/17 09:03 - Respiratory Orders Smoking Cessation: Smoking cessation has been advised. For more information, call the [place] Tobacco Quit Line at 3-186-KTJK-NOW. - Rehabiliation Orders Other: Please follow up with your primary care physician within five days after your discharge from the hospital. Please follow up with cardiology within one to two weeks after your discharge from the hospital. Your home medications have been changed as follows: 1. Amlodipine 5mg once a day has been added to your home medications. Closely monitor your blood pressure, hold all your blood pressure medications for systolic blood pressure less than 100. 2. Lasix 20mg once a day has been added to your home meds Please obtain prescribed lab work prior to your primary care physician's appointment to monitor your renal function. Resume all other medications as prescribed by your primary care physician. Please follow up with your primary care physician in regards to your abdominal aortic aneurysm. CERTIFICATION: I certify that the transfer of the above named patient to an Extended Care Facility is necessary for the continuing treatment of the diagnosis listed. The above information is true and accurate reflection of patient's current condition. Confidential - Redisclosure prohibited without a patient's written consent.
[2017-11-20] MEDS ORDERED: *HR* Rivaroxaban 10 MG TABLET PO SCH (17:00)
== END 2017-11-20 10:43 | DRG 291 ==
LOC: EMEROO 11:30 → 2ANU 11:30
PROVIDERS: ADMIT Internal Medicine; ATTEND Internal Medicine

== ENCOUNTER 2018-09-16 08:02 | Observation (INO) ==
--- NOTE | 2018-09-16 08:13 | Emergency Department Note ---
Disposition Clinical Impression: Chest pain Disposition: Admitted As Inpatient Condition: Good [facility]errals: [facility]Primary Care Provider[facility] - General Adult HPI - General Chief complaint: ED Chest Pain Stated complaint: Chest Pain Time Seen by Provider: 09/16/18 08:06 - History of Present Illness Pain Scale: 7 - Related Data Home Medications Medication Instructions Recorded Confirmed Ferrous Sulfate 325 mg PO BID 05/19/15 01/23/18 GlipiZIDE [Glucotrol] 10 mg PO BID 05/19/15 01/23/18 Isosorbide MONOnitrate (24 HR) 30 mg PO DAILY 05/19/15 01/23/18 [Imdur] Nitroglycerin [Nitrostat] 0.4 mg SL Q5M PRN 05/19/15 01/23/18 Rivaroxaban [Xarelto] 20 mg PO DAILY 05/19/15 01/23/18 Zolpidem Tartrate [Ambien] 5 mg PO HS PRN 05/19/15 01/23/18 buPROPion HCl [Bupropion HCl Sr] 150 mg PO BID 05/19/15 01/23/18 Albuterol Sulfate [Albuterol 2 puff IH QID PRN 11/06/15 01/23/18 Inhaler] Cholecalciferol (D-3) [Vitamin D] 3,000 unit PO DAILY 11/06/15 01/23/18 Docusate Sodium [Colace] 200 mg PO BID 11/06/15 01/23/18 Omeprazole [PriLOSEC] 20 mg PO BID PRN 01/25/16 01/23/18 Acetaminophen [Tylenol] 1,000 mg PO DAILY PRN 11/08/16 01/23/18 Alendronate Sodium [Fosamax] 70 mg PO QWEEK 11/08/16 01/23/18 Bisacodyl [Dulcolax] 30 mg PO QPM PRN 11/08/16 01/23/18 Calcium Carbonate/Vitamin D3 1 tab PO BID 11/08/16 01/23/18 [Calcium 500-Vit D3 200 Tablet] Carboxymethylcellulose Sodium 1 drop BOTH EYES TID PRN 11/08/16 01/23/18 [Refresh Liquigel] Cetirizine HCl [Zyrtec] 10 mg PO DAILY PRN 11/08/16 01/23/18 Finasteride [Proscar] 5 mg PO DAILY 11/08/16 01/23/18 Ketoconazole 2% CRM [Nizoral Cream] 1 appl TP BID PRN 11/08/16 01/23/18 Lidocaine Patch [Lidoderm 5% patch] 1 patch TP DAILY PRN 11/08/16 01/23/18 Ondansetron HCl [Zofran] 8 mg PO BID PRN 11/08/16 01/23/18 Rosuvastatin Calcium [Crestor] 10 mg PO DAILY 11/08/16 01/23/18 Tamsulosin [Flomax] 0.4 mg PO DAILY 11/08/16 01/23/18 Metoprolol XL (24 HR) Succ [Toprol 50 mg PO BID 02/27/17 01/23/18 Xl] Aspirin [Lo-Dose Aspirin EC] 81 mg PO DAILY 05/05/17 01/23/18 Chlorthalidone 12.5 mg PO DAILY 11/16/17 01/23/18 Propylene Glycol/Peg 400 [Kro 1 drop BOTH EYES TID 11/16/17 01/23/18 Lubricating Rlf 0.3-0.4%] Previous Rx's Medication Instructions Recorded Furosemide [Lasix] 20 mg PO DAILY tablet 11/20/17 HYDROcodone/Acet 5/325 mg [[place] 1 tab PO Q6HR PRN 3 Days #10 tablet 11/20/17 5-325 mg] Promethazine [Phenergan] 12.5 mg PO Q6HR PRN #10 tablet 11/20/17 amLODIPine [Norvasc] 5 mg PO DAILY tablet 11/20/17 Allergies Allergy/AdvReac Type Severity Reaction Status Date / Time aspirin Allergy Gastrointestinal Verified 09/16/18 08:12 Upset dofetilide [From Tikosyn] AdvReac Unknown Verified 09/16/18 08:12 Past Medical History - Past Medical History Medical history: Reports: aortic aneurysm, atrial fibrillation, cancer (Larynx, liver, and esophageal (resolved)), COPD, diabetes (Controlled by oral medicati ons), GERD, hyperlipidemia, hypertension, myocardial infarction (x5 w/o stent placement), thyroid disease Surgical history: Reports: cholecystectomy, orthopedic, other Psychiatric history: Reports: anxiety, depression - Social History Smoking Status: Current every day smoker Smokeless Tobacco Status: No Alcohol use: Reports: none Drug use: Reports: none Course Vital Signs Temperature 97.4 F L 09/16/18 08:04 Pulse Rate 85 09/16/18 08:04 Respiratory Rate 18 09/16/18 08:04 Blood Pressure 168/86 09/16/18 08:04 O2 Sat by Pulse Oximetry 98 09/16/18 08:04 Temperature 97.4 F L 09/16/18 08:19 Pulse Rate 95 09/16/18 08:54 Respiratory Rate 20 09/16/18 08:54 Blood Pressure 116/82 09/16/18 08:54 O2 Sat by Pulse Oximetry 95 09/16/18 08:54 Oxygen Delivery Oxygen Delivery Room Air Medical Decision Making - Lab Data Result diagrams: 09/16/18 08:18 09/16/18 08:18 Lab Results 09/16/18 09/16/18 09/16/18 Range/Units 08:18 08:18 08:18 WBC 8.1 (4.3-11.1) K/mcL RBC 5.12 (4.19-5.50) M/mcL Hgb 16.2 (12.9-16.9) g/dL Hct 48.4 (37.5-50.1) % MCV 94.5 (83.0-100.0) fL MCH 31.6 (28.0-33.3) pg MCHC 33.5 (31.6-35.5) g/dL RDW 12.5 (11.5-14.5) % Plt Count 211 (140-400) K/mcL MPV 9.2 L (9.4-12.4) fL Immature Gran % 0.5 (0-4) % Seg Neutrophils % 73.0 % Lymphocytes % 17.3 % Monocytes % 6.7 % Eosinophils % 1.9 % Basophils % 0.6 % Neutrophils # 5.9 (1.6-8.9) K/mcL Lymphocytes # 1.4 (0.6-4.6) K/mcL Monocytes # 0.5 (0.0-1.3) K/mcL Eosinophils # 0.2 (0.0-0.6) K/mcL Basophils # 0.1 (0.0-0.2) K/mcL PT 13.1 H (9.4-12.1) Seconds INR 1.2 Sodium 136 (136-145) mEq/L Potassium 4.0 (3.5-5.1) mEq/L Chloride 102 (98-107) mEq/L Carbon Dioxide 27 (23-29) mEq/L BUN 19 (8-23) mg/dL Creatinine 1.03 (0.70-1.30) mg/dL Est GFR ( Amer) > 60 (> 60) Est GFR (Non-Af Amer) > 60 (> 60) BUN/Creatinine Ratio 18 (6-26) Glucose 174 H (70-105) mg/dL Calculated Osmolality 288 (280-300) Calcium 9.4 (8.6-10.3) mg/dL Troponin I < 0.03 (< 0.04) ng/mL Triglycerides 192 H (< 150) mg/dL Cholesterol 159 (< 200) mg/dL LDL Cholesterol, Calc 75 (0-99) mg/dL VLDL Cholesterol, Calc 38 H (< 31) mg/dL HDL Cholesterol 46 (40-59) mg/dL Cholesterol/HDL Ratio 3.5 (0-4.9) Attestation Statement - Attestation Attestation: I examined this patient and my medical decision-making was reviewed with the Resident Physician. I agree with the documented findings, disposition and treatment plan as described except to the extent set forth below. Patient presents to the ED with chest pain. Patient has had pain in the right side of his chest. It has been coming and going. Patient cannot state what makes it come and go. Feels different than prior cardiac chest pain. On examination he is in no acute distress. His pain is not reproducible. His lungs are clear. Plan. Cardiac workup. Cardiac workup unremarkable. Troponin negative and EKG unchanged. Patient is admitted. Heart score 4. Chest X-Ray 09/16/18 08:12 IMPRESSION: No acute cardiopulmonary disease D/ / Kingston Robins MD / Kingston Robins MD Interpreting Provider: Kingston Robins MD
--- NOTE | 2018-09-16 08:13 | Emergency Department Note ---
Disposition Clinical Impression: Chest pain Qualifiers: Chest pain type: unspecified Qualified Code(s): R07.9 - Chest pain, unspecified Disposition: Admitted As Inpatient Condition: Good Time of Disposition: 09:25 General Adult HPI - General Chief complaint: ED Chest Pain Stated complaint: Chest Pain Time Seen by Provider: 09/16/18 08:06 Source: patient Mode of arrival: wheelchair Limitations: no limitations Nursing Notes Reviewed: Yes Vital Signs Reviewed: Yes - History of Present Illness HPI Narrative: Patient is a 68-year-old male that presents emergency department with chest pain. Patient states that it started just prior to arrival. Patient states that he was over at ultrasound getting a ultrasound of his thyroid when he developed right-sided chest pain. Patient describes it as a cramping pain in his right chest. Patient denies any shortness of breath, nausea or diaphoresis. Patient denies any radiation of the pain. Patient states that he has had this off and on over the past week. Patient is unsure of what he was doing on the initial onset 1 week ago. Patient states today he was in the bathroom when the pain started. Patient states that he has had multiple heart attacks in the past but no stents in place. Patient states that his last cath was approximately one year ago. Pain Scale: 7 - Related Data Home Medications Medication Instructions Recorded Confirmed Ferrous Sulfate 325 mg PO BID 05/19/15 01/23/18 GlipiZIDE [Glucotrol] 10 mg PO BID 05/19/15 01/23/18 Isosorbide MONOnitrate (24 HR) 30 mg PO DAILY 05/19/15 01/23/18 [Imdur] Nitroglycerin [Nitrostat] 0.4 mg SL Q5M PRN 05/19/15 01/23/18 Rivaroxaban [Xarelto] 20 mg PO DAILY 05/19/15 01/23/18 Zolpidem Tartrate [Ambien] 5 mg PO HS PRN 05/19/15 01/23/18 buPROPion HCl [Bupropion HCl Sr] 150 mg PO BID 05/19/15 01/23/18 Albuterol Sulfate [Albuterol 2 puff IH QID PRN 11/06/15 01/23/18 Inhaler] Cholecalciferol (D-3) [Vitamin D] 3,000 unit PO DAILY 11/06/15 01/23/18 Docusate Sodium [Colace] 200 mg PO BID 11/06/15 01/23/18 Omeprazole [PriLOSEC] 20 mg PO BID PRN 01/25/16 01/23/18 Acetaminophen [Tylenol] 1,000 mg PO DAILY PRN 11/08/16 01/23/18 Alendronate Sodium [Fosamax] 70 mg PO QWEEK 11/08/16 01/23/18 Bisacodyl [Dulcolax] 30 mg PO QPM PRN 11/08/16 01/23/18 Calcium Carbonate/Vitamin D3 1 tab PO BID 11/08/16 01/23/18 [Calcium 500-Vit D3 200 Tablet] Carboxymethylcellulose Sodium 1 drop BOTH EYES TID PRN 11/08/16 01/23/18 [Refresh Liquigel] Cetirizine HCl [Zyrtec] 10 mg PO DAILY PRN 11/08/16 01/23/18 Finasteride [Proscar] 5 mg PO DAILY 11/08/16 01/23/18 Ketoconazole 2% CRM [Nizoral Cream] 1 appl TP BID PRN 11/08/16 01/23/18 Lidocaine Patch [Lidoderm 5% patch] 1 patch TP DAILY PRN 11/08/16 01/23/18 Ondansetron HCl [Zofran] 8 mg PO BID PRN 11/08/16 01/23/18 Rosuvastatin Calcium [Crestor] 10 mg PO DAILY 11/08/16 01/23/18 Tamsulosin [Flomax] 0.4 mg PO DAILY 11/08/16 01/23/18 Metoprolol XL (24 HR) Succ [Toprol 50 mg PO BID 02/27/17 01/23/18 Xl] Aspirin [Lo-Dose Aspirin EC] 81 mg PO DAILY 05/05/17 01/23/18 Chlorthalidone 12.5 mg PO DAILY 11/16/17 01/23/18 Propylene Glycol/Peg 400 [Kro 1 drop BOTH EYES TID 11/16/17 01/23/18 Lubricating Rlf 0.3-0.4%] Previous Rx's Medication Instructions Recorded Furosemide [Lasix] 20 mg PO DAILY tablet 11/20/17 HYDROcodone/Acet 5/325 mg [[place] 1 tab PO Q6HR PRN 3 Days #10 tablet 11/20/17 5-325 mg] Promethazine [Phenergan] 12.5 mg PO Q6HR PRN #10 tablet 11/20/17 amLODIPine [Norvasc] 5 mg PO DAILY tablet 11/20/17 Allergies Allergy/AdvReac Type Severity Reaction Status Date / Time aspirin Allergy Gastrointestinal Verified 09/16/18 08:12 Upset dofetilide [From Tikosyn] AdvReac Unknown Verified 09/16/18 08:12 All systems ED: reviewed and negative except as stated. Cardiovascular: Reports: chest pain Respiratory: Denies: dyspnea Gastrointestinal: Denies: nausea, vomiting Past Medical History - Past Medical History Medical history: Reports: aortic aneurysm, atrial fibrillation, cancer (Larynx, liver, and esophageal (resolved)), COPD, diabetes (Controlled by oral medications), GERD, hyperlipidemia, hypertension, myocardial infarction (x5 w/o stent placement), thyroid disease Surgical history: Reports: cholecystectomy, orthopedic, other Psychiatric history: Reports: anxiety, depression - Social History Smoking Status: Current every day smoker Smokeless Tobacco Status: No Alcohol use: Reports: none Drug use: Reports: none Physical Exam - General Limitations: no limitations General appearance: alert, in no apparent distress - Head Head exam: atraumatic, normocephalic - Eye Eye exam: Present: normal appearance, EOMI - Neck Neck exam: Present: normal inspection, full ROM, trachea midline - Respiratory Respiratory exam: Present: normal lung sounds bilaterally. Absent: respiratory distress, wheezes - Cardiovascular Cardiovascular exam: Present: irregular rhythm, normal heart sounds, +S1, +S2 - Abdominal Exam Abdominal exam: Present: soft, Non-Tender, normal bowel sounds - Neurological Exam Neurological exam: Present: alert, oriented X3 - Psychiatric Psychiatric exam: Present: normal affect, normal mood - Skin Skin exam: Present: warm, dry, intact Course Vital Signs Temperature 97.4 F L 09/16/18 08:04 Pulse Rate 85 09/16/18 08:04 Respiratory Rate 18 09/16/18 08:04 Blood Pressure 168/86 09/16/18 08:04 O2 Sat by Pulse Oximetry 98 09/16/18 08:04 Temperature 97.4 F L 09/16/18 08:19 Pulse Rate 95 09/16/18 08:54 Respiratory Rate 20 09/16/18 08:54 Blood Pressure 116/82 09/16/18 08:54 O2 Sat by Pulse Oximetry 95 09/16/18 08:54 Oxygen Delivery Oxygen Delivery Room Air Medical Decision Making - MDM Narrative Medical decision making narrative: Due the patient presents emergency Department with chest pain with a history of cardiac disease she will likely require admission. We will obtain baseline laboratory tests including CBC, BMP, troponin chest x-ray and EKG. Patient's laboratory testing is unremarkable. Troponin is negative. Chest does not show any acute cardial process. EKG does show age fibrillation however patient has a history of atrial fibrillation is not rapid ventricular response. There are no acute ischemic changes. [place] the patient's cardiac history and his presenting symptoms of chest pain we will need admission to the hospital for further evaluation and management due to the acute onset of his chest pain and the troponin initially being negative does not rule out ACS. Patient was given aspirin and nitroglycerin here in the emergency department. The nitroglycerin glycerin did provide some relief of the patient's chest pain. I called spoke the admitting hospitalist Dr. Queen and he is accepted the patient to their service. Patient be admitted to the hospital this time for further evaluation and management of his chest pain. - Medical Records Medical records reviewed: Yes I reviewed the patient's medical records. - Lab Data Lab results reviewed: Yes I reviewed the patient's lab results. Result diagrams: 09/16/18 08:18 09/16/18 08:18 Lab Results 09/16/18 09/16/18 09/16/18 Range/Units 08:18 08:18 08:18 WBC 8.1 (4.3-11.1) K/mcL RBC 5.12 (4.19-5.50) M/mcL Hgb 16.2 (12.9-16.9) g/dL Hct 48.4 (37.5-50.1) % MCV 94.5 (83.0-100.0) fL MCH 31.6 (28.0-33.3) pg MCHC 33.5 (31.6-35.5) g/dL RDW 12.5 (11.5-14.5) % Plt Count 211 (140-400) K/mcL MPV 9.2 L (9.4-12.4) fL Immature Gran % 0.5 (0-4) % Seg Neutrophils % 73.0 % Lymphocytes % 17.3 % Monocytes % 6.7 % Eosinophils % 1.9 % Basophils % 0.6 % Neutrophils # 5.9 (1.6-8.9) K/mcL Lymphocytes # 1.4 (0.6-4.6) K/mcL Monocytes # 0.5 (0.0-1.3) K/mcL Eosinophils # 0.2 (0.0-0.6) K/mcL Basophils # 0.1 (0.0-0.2) K/mcL PT 13.1 H (9.4-12.1) Seconds INR 1.2 Sodium 136 (136-145) mEq/L Potassium 4.0 (3.5-5.1) mEq/L Chloride 102 (98-107) mEq/L Carbon Dioxide 27 (23-29) mEq/L BUN 19 (8-23) mg/dL Creatinine 1.03 (0.70-1.30) mg/dL Est GFR ( Amer) > 60 (> 60) Est GFR (Non-Af Amer) > 60 (> 60) BUN/Creatinine Ratio 18 (6-26) Glucose 174 H (70-105) mg/dL Calculated Osmolality 288 (280-300) Calcium 9.4 (8.6-10.3) mg/dL Troponin I < 0.03 (< 0.04) ng/mL - Radiology Data Radiology results reviewed: Yes I reviewed the patient's radiology results. Chest X-Ray 09/16/18 08:12 IMPRESSION: No acute cardiopulmonary disease D/ / Kingston Robins MD / Kingston Robins MD Interpreting Provider: Kingston Robins MD - EKG Data EKG #1 EKG attestation: Yes I reviewed and interpreted this EKG. EKG results narrative: EKG showed atrial fibrillation at a rate of 70 bpm, curious duration 80, QTc of 440. There is no evidence of STEMI and EKG. This is compared to previous EKG on 11/17/17.
--- NOTE | 2018-09-16 08:33 | Emergency Department Note ---
Disposition Clinical Impression: Chest pain Qualifiers: Chest pain type: unspecified Qualified Code(s): R07.9 - Chest pain, unspecified Disposition: Admitted As Inpatient Condition: Good [facility]errals: [facility]Primary Care Provider[facility] - General Adult HPI - General Chief complaint: ED Chest Pain Stated complaint: Chest Pain Time Seen by Provider: 09/16/18 08:06 Source: patient Mode of arrival: wheelchair Limitations: no limitations - History of Present Illness HPI Narrative: Patient is a 68 year old male with PMH of HTN, atrial fibrillation on Xarelto, CAD with multiple MS's, COPD and diabetes presents with right sided chest pain that started 20 minutes prior to arrival. Patient reports that he was having an ultrasound of his thyroid when the pains started. Patient describes the pain as a "tight cramping knot" in the area of 6th rib right side midclavicular line. Patient states that the pain is nonexertional, nonpleuritic, nonradiating. Patient cannot recall what he was doing the first time he experienced the pain or any other inciting activities. Patient denies SOB, fever, chills, nausea, vomiting, diaphoresis, abdominal pain, urinary symptoms, diarrhea, blood in stool. Pain Scale: 7 - Related Data Home Medications Medication Instructions Recorded Confirmed Ferrous Sulfate 325 mg PO BID 05/19/15 01/23/18 GlipiZIDE [Glucotrol] 10 mg PO BID 05/19/15 01/23/18 Isosorbide MONOnitrate (24 HR) 30 mg PO DAILY 05/19/15 01/23/18 [Imdur] Nitroglycerin [Nitrostat] 0.4 mg SL Q5M PRN 05/19/15 01/23/18 Rivaroxaban [Xarelto] 20 mg PO DAILY 05/19/15 01/23/18 Zolpidem Tartrate [Ambien] 5 mg PO HS PRN 05/19/15 01/23/18 buPROPion HCl [Bupropion HCl Sr] 150 mg PO BID 05/19/15 01/23/18 Albuterol Sulfate [Albuterol 2 puff IH QID PRN 11/06/15 01/23/18 Inhaler] Cholecalciferol (D-3) [Vitamin D] 3,000 unit PO DAILY 11/06/15 01/23/18 Docusate Sodium [Colace] 200 mg PO BID 11/06/15 01/23/18 Omeprazole [PriLOSEC] 20 mg PO BID PRN 01/25/16 01/23/18 Acetaminophen [Tylenol] 1,000 mg PO DAILY PRN 11/08/16 01/23/18 Alendronate Sodium [Fosamax] 70 mg PO QWEEK 11/08/16 01/23/18 Bisacodyl [Dulcolax] 30 mg PO QPM PRN 11/08/16 01/23/18 Calcium Carbonate/Vitamin D3 1 tab PO BID 11/08/16 01/23/18 [Calcium 500-Vit D3 200 Tablet] Carboxymethylcellulose Sodium 1 drop BOTH EYES TID PRN 11/08/16 01/23/18 [Refresh Liquigel] Cetirizine HCl [Zyrtec] 10 mg PO DAILY PRN 11/08/16 01/23/18 Finasteride [Proscar] 5 mg PO DAILY 11/08/16 01/23/18 Ketoconazole 2% CRM [Nizoral Cream] 1 appl TP BID PRN 11/08/16 01/23/18 Lidocaine Patch [Lidoderm 5% patch] 1 patch TP DAILY PRN 11/08/16 01/23/18 Ondansetron HCl [Zofran] 8 mg PO BID PRN 11/08/16 01/23/18 Rosuvastatin Calcium [Crestor] 10 mg PO DAILY 11/08/16 01/23/18 Tamsulosin [Flomax] 0.4 mg PO DAILY 11/08/16 01/23/18 Metoprolol XL (24 HR) Succ [Toprol 50 mg PO BID 02/27/17 01/23/18 Xl] Aspirin [Lo-Dose Aspirin EC] 81 mg PO DAILY 05/05/17 01/23/18 Chlorthalidone 12.5 mg PO DAILY 11/16/17 01/23/18 Propylene Glycol/Peg 400 [Kro 1 drop BOTH EYES TID 11/16/17 01/23/18 Lubricating Rlf 0.3-0.4%] Previous Rx's Medication Instructions Recorded Furosemide [Lasix] 20 mg PO DAILY tablet 11/20/17 HYDROcodone/Acet 5/325 mg [[place] 1 tab PO Q6HR PRN 3 Days #10 tablet 11/20/17 5-325 mg] Promethazine [Phenergan] 12.5 mg PO Q6HR PRN #10 tablet 11/20/17 amLODIPine [Norvasc] 5 mg PO DAILY tablet 11/20/17 Allergies Allergy/AdvReac Type Severity Reaction Status Date / Time aspirin Allergy Gastrointestinal Verified 09/16/18 08:12 Upset dofetilide [From Tikosyn] AdvReac Unknown Verified 09/16/18 08:12 Constitutional: Denies: fever, chills Eyes: Denies: eye pain, vision change ENT ED: Denies: throat pain, congestion Cardiovascular: Reports: chest pain. Denies: palpitations, dyspnea on exertion, syncope Respiratory: Reports: cough (chronic productive cough of clear sputum). Denies: dyspnea, wheezes Gastrointestinal: Denies: abdominal pain, nausea, vomiting, diarrhea, melena Genitourinary: Denies: dysuria, hematuria Musculoskeletal: Denies: back pain, neck pain Integumentary: Denies: rash, abrasion Neurological: Denies: headache, weakness, numbness, paresthesias Past Medical History - Past Medical History Medical history: Reports: aortic aneurysm, atrial fibrillation, cancer, COPD, diabetes, GERD, hyperlipidemia, hypertension, myocardial infarction, thyroid disease Surgical history: Reports: cholecystectomy, orthopedic, other Psychiatric history: Reports: anxiety, depression - Social History Smoking Status: Current every day smoker Smokeless Tobacco Status: No Alcohol use: Reports: none Drug use: Reports: none Physical Exam - General Limitations: no limitations General appearance: alert - Head Head exam: atraumatic, normocephalic, normal inspection - Eye Eye exam: Present: normal appearance, PERRL, EOMI - ENT ENT exam: normal exam, normal oropharynx, mucous membranes moist - Neck Neck exam: Present: normal inspection, full ROM, trachea midline - Chest Chest inspection: Present: normal inspection, symmetric chest wall rise, tenderness (right side 6-7th rib midclavicular line) - Respiratory Respiratory exam: Present: normal lung sounds bilaterally. Absent: respiratory distress - Cardiovascular Cardiovascular exam: Present: regular rate, irregular rhythm, normal heart sounds - Abdominal Exam Abdominal exam: Present: soft, Non-Tender. Absent: tenderness, distention, guarding, rebound, rigidity - Extremities Exam Extremities exam: Present: normal inspection, full ROM, normal capillary refill. Absent: tenderness, pedal edema - Back Exam Back exam: Present: normal inspection, full ROM. Absent: tenderness, CVA tenderness (R), CVA tenderness (L) - Neurological Exam Neurological exam: Present: alert, oriented X3 - Psychiatric Psychiatric exam: Present: normal affect, normal mood - Skin Skin exam: Present: warm, dry, intact, normal color Course Vital Signs Temperature 97.4 F L 09/16/18 08:04 Pulse Rate 85 09/16/18 08:04 Respiratory Rate 18 09/16/18 08:04 Blood Pressure 168/86 09/16/18 08:04 O2 Sat by Pulse Oximetry 98 09/16/18 08:04 Temperature 97.4 F L 09/16/18 08:19 Pulse Rate 95 09/16/18 08:54 Respiratory Rate 20 09/16/18 08:54 Blood Pressure 116/82 09/16/18 08:54 O2 Sat by Pulse Oximetry 95 09/16/18 08:54 Oxygen Delivery Oxygen Delivery Room Air Medical Decision Making - Lab Data Result diagrams: 09/16/18 08:18 09/16/18 08:18 Lab Results 09/16/18 09/16/18 09/16/18 Range/Units 08:18 08:18 08:18 WBC 8.1 (4.3-11.1) K/mcL RBC 5.12 (4.19-5.50) M/mcL Hgb 16.2 (12.9-16.9) g/dL Hct 48.4 (37.5-50.1) % MCV 94.5 (83.0-100.0) fL MCH 31.6 (28.0-33.3) pg MCHC 33.5 (31.6-35.5) g/dL RDW 12.5 (11.5-14.5) % Plt Count 211 (140-400) K/mcL MPV 9.2 L (9.4-12.4) fL Immature Gran % 0.5 (0-4) % Seg Neutrophils % 73.0 % Lymphocytes % 17.3 % Monocytes % 6.7 % Eosinophils % 1.9 % Basophils % 0.6 % Neutrophils # 5.9 (1.6-8.9) K/mcL Lymphocytes # 1.4 (0.6-4.6) K/mcL Monocytes # 0.5 (0.0-1.3) K/mcL Eosinophils # 0.2 (0.0-0.6) K/mcL Basophils # 0.1 (0.0-0.2) K/mcL PT 13.1 H (9.4-12.1) Seconds INR 1.2 Sodium 136 (136-145) mEq/L Potassium 4.0 (3.5-5.1) mEq/L Chloride 102 (98-107) mEq/L Carbon Dioxide 27 (23-29) mEq/L BUN 19 (8-23) mg/dL Creatinine 1.03 (0.70-1.30) mg/dL Est GFR ( Amer) > 60 (> 60) Est GFR (Non-Af Amer) > 60 (> 60) BUN/Creatinine Ratio 18 (6-26) Glucose 174 H (70-105) mg/dL Calculated Osmolality 288 (280-300) Calcium 9.4 (8.6-10.3) mg/dL Troponin I < 0.03 (< 0.04) ng/mL
[2018-09-16] MEDS ORDERED: Aspirin 81 MG TAB.CHEW PO STA (08:37)
[2018-09-16] MEDS: Nitroglycerin 0.4 MG TAB.SUBL SL PRN ×2 (08:44→08:50)
[2018-09-16 08:53] LABS: Basophils # 0.1 K/mcL (0.0-0.2); Basophils % 0.6 %; Eosinophils # 0.2 K/mcL (0.0-0.6); Eosinophils % 1.9 %; Hematocrit 48.4 % (37.5-50.1); Hemoglobin 16.2 g/dL (12.9-16.9); Immature Granulocytes % 0.5 % (0-4); Lymphocytes # 1.4 K/mcL (0.6-4.6); Lymphocytes % 17.3 %; Mean Corpuscular HGB Conc 33.5 g/dL (31.6-35.5); Mean Corpuscular Hemoglobin 31.6 pg (28.0-33.3); Mean Corpuscular Volume 94.5 fL (83.0-100.0); Mean Platelet Volume 9.2 fL (9.4-12.4); Monocytes # 0.5 K/mcL (0.0-1.3); Monocytes % 6.7 %; Neutrophils # 5.9 K/mcL (1.6-8.9); Platelet Count 211 K/mcL (140-400); Red Blood Count 5.12 M/mcL (4.19-5.50); Red Cell Distribution Width 12.5 % (11.5-14.5)
[2018-09-16 08:59] LABS: Troponin I < 0.03 ng/mL (< 0.04)
[2018-09-16 09:00] LABS: INR 1.2; Prothrombin Time 13.1 Seconds (9.4-12.1)
[2018-09-16 09:01] LABS: BUN/Creatinine Ratio 18 (6-26); Blood Urea Nitrogen 19 mg/dL (8-23); Calcium 9.4 mg/dL (8.6-10.3); Carbon Dioxide 27 mEq/L (23-29); Chloride 102 mEq/L (98-107); Glucose 174 mg/dL (70-105); Osmolality,Calculated 288 (280-300); Sodium 136 mEq/L (136-145); eGFR For Non-African Americans > 60 (> 60)
[2018-09-16] MEDS ORDERED: Acetaminophen 325 MG TABLET PO PRN (09:45)
[2018-09-16] MEDS ORDERED: Naloxone 0.4 MG/ML INJ IVP PRN (09:45)
[2018-09-16 10:15] LABS: Chol/HDL Ratio 3.5 (0-4.9); Cholesterol 159 mg/dL (< 200); HDL Cholesterol 46 mg/dL (40-59); LDL Cholesterol,Calculated 75 mg/dL (0-99); Triglycerides 192 mg/dL (< 150)
[2018-09-16] MEDS ORDERED: Dextrose Gel 15 GM/37.5 ML TUBE PO PRN ×4 (10:32→11:56)
[2018-09-16] MEDS ORDERED: D5% in Water 1,000 ML IVC PRN ×2 (10:32→11:56)
[2018-09-16] MEDS ORDERED: *HR* Dextrose 50 % in Water (Syg) 50 ML SYRINGE IVP PRN ×2 (10:32→11:56)
--- NOTE | 2018-09-16 10:40 | Internal Med History&Physical ---
<Dewayne Nicholas - Last Filed: 09/16/18 10:34> Date of Encounter: 09/16/18 Time of Encounter: 09:30 Internal Medicine - H&P: HPI Chief complaint: right sided chest wall pain Admitted From: Home Plans for Post Hospital Care: Home History of present illness: Mr. Zapata is a 68 year old male with significant pmhx of atrial fibrillation on Xarelto, [place] without stents, DM type II, COPD current smoker, Abdominal aortic aneurysm, hx of esophageal cancer with metastatic lesions (now gone) presents to the emergency this morning with right sided upper abdominal wall pain and right sided chest discomfort described as sharp brought on after straining in the bathroom here at the hospital. He presented today for a radioactive iodine uptake study and had taken his tablet prior to using the bathroom. He then was in the bathroom straining when the symptoms were brought on. He presented to the first front ventilator and thought it was related to the tablet he had taken but with his symptoms was directed for evaluation in the emergency department. He said there was some improvement after taking a nitroglycerin SL tab but continues to have discomfort with light palpation of the abdomen wall. He has had similar disc omfort in the past but denies it presenting this severe in the past. He had taken his regular medications as prescribed. He denies any lightheadedness, fevers, chills, blurry vision, shortness of breath beyond his baseline, N/V/D/C or new or worsening of swelling in his legs. Past Med Surg Social Fam HX - Past Medical History Medical history: aortic aneurysm, atrial fibrillation, cancer (Larynx, liver, and esophageal (resolved)), COPD, diabetes (Controlled by oral medications), GERD, hyperlipidemia, hypertension, myocardial infarction (x5 w/o stent placement), thyroid disease Additional medical history: esophageal and liver cancer Psychiatric history: anxiety, depression - Past Surgical History Surgical History: cholecystectomy, orthopedic, other Additional surgical history: LEFT HIP SURGERY, ablation - Social History Smoking Status: Current every day smoker Smokeless Tobacco Status: No Alcohol use: none Drug use: none - Family History Brother Family Member Ethnicity: Non- Living Status: Hx Family Cancer: Yes (Lung) Father Adopted: No Family Member Ethnicity: Non- Living Status: Hx Family Cardiac Disorders: Yes Hx Family Respiratory Disorders: Yes (Emphysema) Hx Family Cancer: No Hx Family GI Disorders: No Hx Family Endocrine Disorder: Yes (DM) Hx Family Neuromuscular Disorders: No Hx Family Neurologic Disorders: No Hx Family HEENT Disorders: No Hx Family Autoimmune Disorders: No Mother Family Member Ethnicity: Non- Living Status: Hx Family Cardiac Disorders: Yes (Triple bypass) Hx Family Endocrine Disorder: Yes (DM) Sister Family Member Ethnicity: Non- Living Status: Still Living Hx Family Cancer: Yes (Breast, ovarian) Hx Family Endocrine Disorder: Yes (DM) Internal Medicine - H&P: Meds RX: Ferrous Sulfate 325 mg PO BID 05/19/15 [History] RX: GlipiZIDE [Glucotrol] 10 mg PO BID 05/19/15 [History] RX: Isosorbide MONOnitrate (24 HR) [Imdur] 30 mg PO DAILY 05/19/15 [History] RX: Nitroglycerin [Nitrostat] 0.4 mg SL Q5M PRN 05/19/15 [History] RX: Rivaroxaban [Xarelto] 20 mg PO DAILY 05/19/15 [History] RX: Zolpidem Tartrate [Ambien] 5 mg PO HS PRN 05/19/15 [History] RX: buPROPion HCl [Bupropion HCl Sr] 150 mg PO BID 05/19/15 [History] RX: Albuterol Sulfate [Albuterol Inhaler] 2 puff IH QID PRN 11/06/15 [History] RX: Cholecalciferol (D-3) [Vitamin D] 3,000 unit PO DAILY 11/06/15 [History] RX: Docusate Sodium [Colace] 200 mg PO BID 11/06/15 [History] RX: Omeprazole [PriLOSEC] 20 mg PO BID PRN 01/25/16 [History] RX: Acetaminophen [Tylenol] 1,000 mg PO DAILY PRN 11/08/16 [History] RX: Alendronate Sodium [Fosamax] 70 mg PO QWEEK 11/08/16 [History] RX: Bisacodyl [Dulcolax] 30 mg PO QPM PRN 11/08/16 [History] RX: Calcium Carbonate/Vitamin D3 [Calcium 500-Vit D3 200 Tablet] 1 tab PO BID 11/08/16 [History] RX: Carboxymethylcellulose Sodium [Refresh Liquigel] 1 drop BOTH EYES TID PRN 11/08/16 [History] RX: Cetirizine HCl [Zyrtec] 10 mg PO DAILY PRN 11/08/16 [History] RX: Finasteride [Proscar] 5 mg PO DAILY 11/08/16 [History] RX: Ketoconazole 2% CRM [Nizoral Cream] 1 appl TP BID PRN 11/08/16 [History] RX: Lidocaine Patch [Lidoderm 5% patch] 1 patch TP DAILY PRN 11/08/16 [History] RX: Ondansetron HCl [Zofran] 8 mg PO BID PRN 11/08/16 [History] RX: Rosuvastatin Calcium [Crestor] 10 mg PO DAILY 11/08/16 [History] RX: Tamsulosin [Flomax] 0.4 mg PO DAILY 11/08/16 [History] RX: Metoprolol XL (24 HR) Succ [Toprol Xl] 50 mg PO BID 02/27/17 [History] RX: Aspirin [Lo-Dose Aspirin EC] 81 mg PO DAILY 05/05/17 [History] RX: Chlorthalidone 12.5 mg PO DAILY 11/16/17 [History] RX: Propylene Glycol/Peg 400 [Kro Lubricating Rlf 0.3-0.4%] 1 drop BOTH EYES TID 11/16/17 [History] Promethazine [Phenergan] 12.5 mg PO Q6HR PRN #10 tablet 11/20/17 [Rx] RX: Furosemide [Lasix] 20 mg PO DAILY tablet 11/20/17 [Rx] RX: HYDROcodone/Acet 5/325 mg [[place] 5-325 mg] 1 tab PO Q6HR PRN 3 Days #10 tablet 11/20/17 [Rx] RX: amLODIPine [Norvasc] 5 mg PO DAILY tablet 11/20/17 [Rx] Allergy/AdvReac Type Severity Reaction Status Date / Time aspirin Allergy Gastrointestinal Verified 09/16/18 08:12 Upset dofetilide [From Tikosyn] AdvReac Unknown Verified 09/16/18 08:12 All Systems PM: A 10-system review of systems was performed and is negative for pertinent findings except as documented above in the HPI. - Constitutional Constitutional: no anorexia, no chills, no excessive sweating, no fatigue, no fever(s), no falls, no malaise, no weakness - EENT Eyes: no blurry vision, no change in vision Nose, mouth and throat: no mouth pain, no neck pain - Cardiovascular Cardiovascular ROS IM: chest pain, irregular heart rhythm, no claudication, no diaphoresis, no dyspnea, no dyspnea on exertion, no edema, no lightheadedness, no syncope - Respiratory Respiratory: cough (chronic for 5 weeks), wheezing, no dyspnea - Gastrointestinal Gastrointestinal: no belching, no bloating, no change in bowel habits, no constipation, no diarrhea, no nausea, no vomiting - Genitourinary Genitourinary ROS male: no dysuria - Musculoskeletal Musculoskeletal ROS IM: no numbness - Neurological Neurological ROS: no paresthesias - Constitutional Vitals: Temp Pulse Resp BP Pulse Ox 97.4 F L 95 20 116/82 95 09/16/18 08:19 09/16/18 08:54 09/16/18 08:54 09/16/18 08:54 09/16/18 08:54 Exam: GEN: alert, awake oriented interactive in no acute distress HEENT: NC/AT, PERRLA, trachea midline, Cardiac: Irregularly irregular heart rate and rhythm, radial pulses 2+ bilateral, trace edema in bilateral LE Resp: diffuse wheezing with both inspiratory and expiratory effort. Abdomen: obese, mild tenderness to palpation of the abdominal wall in the Right upper quadrent and tip of the sternum, no pain to deep palpation, + BS Chest: mild tenderness to palpation of the right pectorales muscle. no lesion or vesicles of skin Extremities: Symmetric, patient has braces on both knees, retained sensation in all extremities Internal Med - H&P Results - Labs CBC & Chem 7: 09/16/18 08:18 09/16/18 08:18 Labs: Short CBC 09/16/18 Range/Units 08:18 WBC 8.1 (4.3-11.1) K/mcL Hgb 16.2 (12.9-16.9) g/dL Hct 48.4 (37.5-50.1) % Plt Count 211 (140-400) K/mcL Neutrophils # 5.9 (1.6-8.9) K/mcL BMP 09/16/18 08:18 Sodium 136 Potassium 4.0 Chloride 102 Carbon Dioxide 27 BUN 19 Creatinine 1.03 Glucose 174 H Calcium 9.4 Cardiac Enzymes 09/16/18 Range/Units 08:18 Troponin I < 0.03 (< 0.04) ng/mL - Impressions ITS Impressions Chest X-Ray 09/16/18 08:12 IMPRESSION: No acute cardiopulmonary disease D/ / Kingston Robins MD / Kingston Robins MD Interpreting Provider: Kingston Robins MD - Assessment and plan (1) Chest pain Current Visit: Yes Status: Acute Assessment and plan: Atypical pain suspected with muscle spasms. Though patient has significant risk factors: DM, age, gender, smoker, previous [place] 11/[place]: Cardiac Cath that was aborted 2014: Cardiac Cath demonstrated minimal CAD no stents placed. - ACS work up, initial troponin <0.03 - Heart score of 4 - Admit to observation - Cardiac monitoring - Trend Troponins Q6hrs x3 - Continue Statin, beta catherine, Lisinopril - Patient received ASA in ER, ASA listed as an allergy, will monitor and continue if tolerated at 81mg daily - SL Nitro PRN for chest pain - Echocardiogram ( last one was over a year ago) - Patient has Cardiology follow up on Friday, if stable will defer further work up after discharge. Qualifiers: Chest pain type: unspecified Qualified Code(s): R07.9 - Chest pain, unspecified (2) Abdominal wall pain in right upper quadrant Current Visit: Yes Status: Acute Assessment and plan: tenderness and knots noted during exam of right upper quadrant. suspect muscle spasm vs. hernia with previous laproscopic procedures. Plan: - RUQ abdominal wall US - muscle relaxant - need to work up possible ACS as patient has significant risk factors. (3) COPD (chronic obstructive pulmonary disease) Current Visit: No Status: Chronic Assessment and plan: Patient with known COPD, current smoker with wheezing Plan: - Continue home inhalers - PRN Duonebs - Prednisone 40mg PO daily x5 days Qualifiers: COPD type: chronic bronchitis Chronic bronchitis type: simple Qualified Code(s): J41.0 - Simple chronic bronchitis (4) Atrial fibrillation Current Visit: No Status: Chronic Assessment and plan: Patient with known hx of atrial fibrillation on Xarelto - Continue Xarelto - Cardiac monitoring inpatient - EKG demonstrates A-fib without concerning findings Stable Qualifiers: Atrial fibrillation type: persistent Qualified Code(s): I48.1 - Persistent atrial fibrillation (5) Abdominal aortic aneurysm Current Visit: No Status: Chronic Assessment and plan: 4.5x3.[address] earlier this year. - Follow up outpatient - guidelines abdominal aortic US 6 months. follow with PCP Qualifiers: Presence of rupture: without rupture Qualified Code(s): I71.4 - Abdominal aortic aneurysm, without rupture (6) Thyroid disease Current Visit: No Status: Chronic Assessment and plan: Patient presented for evaluation of his thyroid and iodine uptake scan today. - Patient took Radioactive Iodine this morning, Imaging at 11:30 today - discussed with radiology and can complete while he is here. (7) DVT prophylaxis Current Visit: Yes Status: Acute Assessment and plan: SQ Heparin 5,000 Q8hrs. - Time Spent With Patient Total time spent is greater than 50% in coordination of care (as documented) at patient's floor/unit and/or counseling patient: <Jasson Queen - Last Filed: 09/16/18 11:18> Date of Encounter: 09/16/18 Internal Medicine - H&P: HPI History of present illness: Mr. Zapata is a 68 year old male All Systems PM: A 10-system review of systems was performed and is negative for pertinent findings except as documented above in the HPI. - Constitutional Vitals: Temp Pulse Resp BP Pulse Ox 98.5 F 75 15 136/91 97 09/16/18 10:51 09/16/18 10:51 09/16/18 10:51 09/16/18 10:51 09/16/18 10:51 Internal Med - H&P Results - Labs CBC & Chem 7: 09/16/18 08:18 09/16/18 08:18 Labs: Short CBC 09/16/18 Range/Units 08:18 WBC 8.1 (4.3-11.1) K/mcL Hgb 16.2 (12.9-16.9) g/dL Hct 48.4 (37.5-50.1) % Plt Count 211 (140-400) K/mcL Neutrophils # 5.9 (1.6-8.9) K/mcL BMP 09/16/18 08:18 Sodium 136 Potassium 4.0 Chloride 102 Carbon Dioxide 27 BUN 19 Creatinine 1.03 Glucose 174 H Calcium 9.4 Cardiac Enzymes 09/16/18 Range/Units 08:18 Troponin I < 0.03 (< 0.04) ng/mL - Impressions ITS Impressions Chest X-Ray 09/16/18 08:12 IMPRESSION: No acute cardiopulmonary disease D/ / Kingston Robins MD / Kingston Robins MD Interpreting Provider: Kingston Robins MD - Assessment and plan (1) COPD (chronic obstructive pulmonary disease) Current Visit: No Status: Chronic Qualifiers: COPD type: chronic bronchitis Chronic bronchitis type: simple Qualified Code(s): J41.0 - Simple chronic bronchitis (2) Atrial fibrillation Current Visit: No Status: Chronic Qualifiers: Atrial fibrillation type: persistent Qualified Code(s): I48.1 - Persistent atrial fibrillation (3) Chest pain Current Visit: Yes Status: Acute Qualifiers: Chest pain type: unspecified Qualified Code(s): R07.9 - Chest pain, unspecified (4) Abdominal aortic aneurysm Current Visit: No Status: Chronic Qualifiers: Presence of rupture: without rupture Qualified Code(s): I71.4 - Abdominal aortic aneurysm, without rupture (5) Thyroid disease Current Visit: No Status: Chronic (6) Abdominal wall pain in right upper quadrant Current Visit: Yes Status: Acute (7) DVT prophylaxis Current Visit: Yes Status: Acute - Time Spent With Patient Total time spent is greater than 50% in coordination of care (as documented) at patient's floor/unit and/or counseling patient: - Attending Attestation I have seen and examined this patient independently. I have discussed with resident physician Dr Nicholas regarding the management plan. Agree with the documentation.
[2018-09-16] MEDS ORDERED: Ipratropium/Albuterol Neb 3 ML IH PRN (11:02)
[2018-09-16] MEDS: Insulin LISPRO 300 UNITS/3 ML VIAL SQ SCH ×2 (12:46→17:09)
[2018-09-16] MEDS: predniSONE 20 MG TABLET PO SCH (12:46)
--- NOTE | 2018-09-16 14:54 | Electrocardiograph Report ---
[address] [address] Test Date: 2018-09-16 Pat Name: Stew Zapata Department: [id number] Room: 3A53 Gender: M Casing Inspector: : [id number] Requested By: Milton Bernard Order Number: [id number] Reading MD: Sharad Smith Measurements Intervals [place] Rate: 78 P: CA: QRS: 3 QRSD: 88 T: -20 QT: 386 QTc: 440 Interpretive Statements Atrial fibrillation Low voltage, precordial leads Minimal ST depression, diffuse leads Electronically Signed On 09-16-2018 14:52:22 EST by Sharad Smith
[2018-09-16] MEDS: *HR* Rivaroxaban 10 MG TABLET PO SCH (14:57)
[2018-09-16 15:17] LABS: Estimated Average Glucose 197 mg/dl; Hemoglobin A1C 8.5 %
[2018-09-16] MEDS: Metoprolol XL (24 HR) Succ 50 MG TAB.ER.24H PO SCH (20:15)
[2018-09-16] MEDS ORDERED: Insulin DETEMIR 100 UNIT/ML X5UNITS SQ SCH (21:00)
[2018-09-16] MEDS ORDERED: Insulin LISPRO 300 UNITS/3 ML VIAL SQ SCH (21:00)
[2018-09-16 21:19] LABS: Amphetamine Screen,Urine Negative ng/mL (Cutoff=1000); Barbiturate Screen,Urine Negative ng/mL (Cutoff=200); Benzodiazepines Screen,Urine Negative ng/mL (Cutoff=200); Cannabinoid Screen,Urine Negative ng/mL (Cutoff = 50); Cocaine Screen,Urine Negative ng/mL (Cutoff= 300); Opiate Screen,Urine Negative ng/mL (Cutoff=300); Phencyclidine Screen,Urine Negative ng/mL (Cutoff=25)
[2018-09-17 05:10] LABS: Basophils % 0.4 %; Eosinophils # 0.1 K/mcL (0.0-0.6); Eosinophils % 0.7 %; Hematocrit 47.7 % (37.5-50.1); Hemoglobin 15.8 g/dL (12.9-16.9); Immature Granulocytes % 0.4 % (0-4); Lymphocytes # 1.5 K/mcL (0.6-4.6); Lymphocytes % 18.7 %; Mean Corpuscular HGB Conc 33.1 g/dL (31.6-35.5); Mean Corpuscular Hemoglobin 31.1 pg (28.0-33.3); Mean Corpuscular Volume 93.9 fL (83.0-100.0); Mean Platelet Volume 9.2 fL (9.4-12.4); Monocytes # 0.8 K/mcL (0.0-1.3); Monocytes % 9.3 %; Neutrophils # 5.7 K/mcL (1.6-8.9); Platelet Count 203 K/mcL (140-400); Red Blood Count 5.08 M/mcL (4.19-5.50); Red Cell Distribution Width 12.5 % (11.5-14.5); Segmented Neutrophils % 70.5 %
[2018-09-17 05:29] LABS: BUN/Creatinine Ratio 17 (6-26); Blood Urea Nitrogen 18 mg/dL (8-23); Calcium 9.4 mg/dL (8.6-10.3); Carbon Dioxide 30 mEq/L (23-29); Chloride 101 mEq/L (98-107); Glucose 176 mg/dL (70-105); Osmolality,Calculated 290 (280-300); Sodium 137 mEq/L (136-145); eGFR For Non-African Americans > 60 (> 60)
[2018-09-17] MEDS: Insulin LISPRO 300 UNITS/3 ML VIAL SQ SCH ×2 (08:45→12:13)
[2018-09-17] MEDS: Metoprolol XL (24 HR) Succ 50 MG TAB.ER.24H PO SCH (08:46)
[2018-09-17] MEDS: predniSONE 20 MG TABLET PO SCH (08:46)
[2018-09-17] MEDS: *HR* Rivaroxaban 10 MG TABLET PO SCH (08:46)
[2018-09-17] MEDS ORDERED: NON-FORMULARY MEDICATION 1 EACH EACH (Rivaroxaban [Xarelto] 20 MG) PO SCH (09:00)
[2018-09-17] MEDS ORDERED: Nitroglycerin 0.4 MG TAB.SUBL SL PRN (14:24)
--- NOTE | 2018-09-17 14:40 | Discharge Summary ---
- NOTES TO OUTPATIENT PROVIDER Notes to Outpatient Provider: Follow-up Cardiology appointment tomorrow. Orders not resulted at time of discharge: Pending orders 09/17/18 06:00 ECG 12 lead ECG [ECG] AM 0600 Date of Encounter: 09/17/18 Time of Encounter: 14:39 - Discharge Diagnosis (1) Chest pain Priority: Primary Status: Acute Qualifiers: Chest pain type: unspecified Qualified Code(s): R07.9 - Chest pain, unspecified (2) COPD (chronic obstructive pulmonary disease) Priority: Secondary Status: Chronic Qualifiers: COPD type: chronic bronchitis Chronic bronchitis type: simple Qualified Code(s): J41.0 - Simple chronic bronchitis (3) Atrial fibrillation Priority: Secondary Status: Chronic Qualifiers: Atrial fibrillation type: persistent Qualified Code(s): I48.1 - Persistent atrial fibrillation (4) Abdominal aortic aneurysm Priority: Secondary Status: Chronic Qualifiers: Presence of rupture: without rupture Qualified Code(s): I71.4 - Abdominal aortic aneurysm, without rupture (5) Thyroid disease Priority: Secondary Status: Chronic (6) Abdominal wall pain in right upper quadrant Priority: Secondary Status: Acute (7) DVT prophylaxis Priority: Secondary Status: Acute Hospital course: Mr. Zapata is a 68 year old male with significant pmhx of atrial fibrillation on Xarelto, [place] without stents, DM type II, COPD current smoker, Abdominal aortic aneurysm, hx of esophageal cancer with metastatic lesions (now gone) presents to the emergency this morning with right sided upper abdominal wall pain and right sided chest discomfort described as sharp brought on after straining in the bathroom here at the hospital. He presented today for a radioactive iodine u ptake study and had taken his tablet prior to using the bathroom. He then was in the bathroom straining when the symptoms were brought on. He presented to the front elevator operator and thought it was related to the tablet he had taken but with his symptoms was directed for evaluation in the emergency department. He said there was some improvement after taking a nitroglycerin SL tab but continues to have discomfort with light palpation of the abdomen wall. He has had similar discomfort in the past but denies it presenting this severe in the past. He had taken his regular medications as prescribed. He denies any lightheadedness, fevers, chills, blurry vision, shortness of breath beyond his baseline, N/V/D/C or new or worsening of swelling in his legs. Although this was atypical chest pain likely from muscle spasms, given his history he was observed on telemetry floor. Pain was noted to be reproducible. An ECG showed atrial fibrillation but no ST or T wave changes. A troponin was trended and was negative x3. An echocardiogram showed EF 50% with normal LV size and thickness, and no significant valve dysfunction. Patient pain improved, likely musculoskelatal. He has an appointment with Cardiology tomorrow. He was discharged in stable condition. - Time Spent with Patient Total time spent providing and/or coordinating discharge services: - Discharge Medications Prescriptions: predniSONE [PredniSONE] 40 mg PO DAILY #8 tablet Home Medications: Albuterol Sulfate [Albuterol Inhaler] 2 puff IH QID PRN 11/06/15 [History] Docusate Sodium [Colace] 200 mg PO BID 11/06/15 [History] Alendronate Sodium [Fosamax] 70 mg PO QWEEK 11/08/16 [History] Calcium Carbonate/Vitamin D3 [Calcium 500-Vit D3 200 Tablet] 1 tab PO BID 11/08/16 [History] Cetirizine HCl [Zyrtec] 10 mg PO DAILY PRN 11/08/16 [History] Finasteride [Proscar] 5 mg PO DAILY 11/08/16 [History] Lidocaine Patch [Lidoderm 5% patch] 1 patch TP DAILY PRN 11/08/16 [History] Tamsulosin [Flomax] 0.4 mg PO DAILY 11/08/16 [History] Aspirin [Lo-Dose Aspirin EC] 81 mg PO DAILY 05/05/17 [History] Chlorthalidone 12.5 mg PO DAILY 11/16/17 [History] Propylene Glycol/Peg 400 [Kro Lubricating Rlf 0.3-0.4%] 1 drop BOTH EYES TID 11/16/17 [History] Bisacodyl [Dulcolax] 15 mg PO QPM PRN 09/16/18 [History] BuPROPion SR (12 HR) [Wellbutrin SR] 150 mg PO BID 09/16/18 [History] Fluticasone Propionate Nasal [Flonase] 2 spray NS QAM 09/16/18 [History] GuaiFENesin Liq [Robitussin Liq] 200 mg PO Q4H PRN 09/16/18 [History] Isosorbide MONOnitrate (24 HR) [Imdur] 30 mg PO QAM 09/16/18 [History] Lisinopril [Zestril] 20 mg PO DAILY 09/16/18 [History] Nitroglycerin [Nitrostat] 0.4 mg SL AD PRN 09/16/18 [History] Rosuvastatin [Crestor] 20 mg PO HS 09/16/18 [History] Tiotropium [Spiriva] 2 puff IH QAM 09/16/18 [History] Zolpidem [Ambien] 5 mg PO HS PRN 09/16/18 [History] glipiZIDE [Glipizide] 10 mg PO QAM 09/16/18 [History] glipiZIDE [Glipizide] 20 mg PO QPM 09/16/18 [History] metFORMIN [Glucophage] 500 mg PO BIDWM 09/16/18 [History] Metoprolol XL (24 HR) Succ [Toprol Xl] 50 mg PO BID tab.er.24h 09/17/18 [Rx] Rivaroxaban [Xarelto] 20 mg PO DAILY tablet 09/17/18 [Rx] predniSONE [PredniSONE] 40 mg PO DAILY #8 tablet 09/17/18 [Rx] Allergies/Adverse Reactions: Allergy/AdvReac Type Severity Reaction Status Date / Time aspirin Allergy Gastrointestinal Verified 09/16/18 08:12 Upset dofetilide [From Tikosyn] AdvReac Unknown Verified 09/16/18 08:12 Date of admission: 09/16/18 09:45 [facility] care physician: [facility] Consults: 09/16/18 13:46 Consult to Pizza Delivery Driver [CONS] Routine Reason for Consult: Patient requesting pediatric social worker due to [facility] patient and discharge planning. Discharging clinician: Jay Salinas - Constitutional Vitals: Temp Pulse Resp BP Pulse Ox 98.4 F 69 18 160/99 95 09/17/18 11:44 09/17/18 11:44 09/17/18 11:44 09/17/18 11:44 09/17/18 11:44 Exam: . - Head Head exam: Present: atraumatic, normocephalic - Eye Eye exam: Present: PERRL, conjuntiva pink, sclera anicteric Pupils: Present: PERRL - Neck Neck exam general surgery: Present: supple, trachea midline. Absent: lymphadenopathy - Respiratory Respiratory exam: Present: CTAB. Absent: accessory muscle use, rales, rhonchi, wheezes - Cardiovascular Cardiovascular exam: Present: irregular rhythm, +S1, +S2. Absent: diastolic murmur, gallop, rubs, systolic murmur - GI/Abdominal GI/Abdominal exam: Present: normal bowel sounds, soft, no peritoneal signs. Absent: distended, tenderness - Extremities Exam Extremities exam: Present: warm, radial pulses palpable and symmetrical. Absent: calf tenderness, cyanotic, pedal edema - Neurological Exam Neurological exam: Present: CN II-XII intact, oriented X3, no focal deficits. Absent: pronater drift, facial droop, speech deficit - Skin Skin exam: Present: dry, intact - Patient Status Disposition: Home, Self-Care Condition: Good Functional capacity at discharge: independent ambulation Overall status at discharge: patient is back to baseline - Discharge Instructions Follow Up With: [facility],PCP [Primary Care Provider] - - Diet and Activity Activity: increase activity as tolerated Diet: advance to your usual diet
[2018-09-17 15:32] VITALS: BP 152/89
[2018-09-17] MEDS ORDERED: BuPROPion SR (12 HR) 150 MG TABLET PO SCH (21:00)
[2018-09-18] MEDS ORDERED: Tiotropium 18 MCG inhalation IH SCH (07:00)
[2018-09-18] MEDS ORDERED: Isosorbide MONOnitrate (24 HR) 30 MG TAB.ER.24H PO SCH (09:00)
[2018-09-18] MEDS ORDERED: Finasteride 5 MG TABLET PO SCH (09:00)
[2018-09-18] MEDS ORDERED: Lisinopril 20 MG TABLET PO SCH (09:00)
[2018-09-18] MEDS ORDERED: Aspirin Enteric Coated 81 MG Tablet PO SCH (09:00)
== END 2018-09-17 16:23 | disposition home or self-care (01) ==
LOC: EMEROOARM 08:02 → 3ANU 08:02 → SUATTDRO 09:45 → 3ANU 10:18
PROVIDERS: ADMIT Internal Medicine; ATTEND Student in an Organized Health Care Education/Training Program

== ENCOUNTER 2019-10-08 15:02 | Observation (INO) ==
[2019-10-08] MEDS ORDERED: Isovue-370 500 ML BOTTLE IVP ONE (15:42)
[2019-10-08 15:44] LABS: Basophils % 0.4 %; Eosinophils # 0.1 K/mcL (0.0-0.6); Eosinophils % 0.6 %; Hematocrit 47.4 % (37.5-50.1); Hemoglobin 16.4 g/dL (12.9-16.9); Immature Granulocytes % 0.5 % (0-4); Lymphocytes # 1.7 K/mcL (0.6-4.6); Lymphocytes % 20.5 %; Mean Corpuscular HGB Conc 34.6 g/dL (31.6-35.5); Mean Corpuscular Volume 89.6 fL (83.0-100.0); Mean Platelet Volume 9.2 fL (9.4-12.4); Monocytes # 0.6 K/mcL (0.0-1.3); Monocytes % 7.6 %; Neutrophils # 5.8 K/mcL (1.6-8.9); Platelet Count 244 K/mcL (140-400); Red Blood Count 5.29 M/mcL (4.19-5.50); Red Cell Distribution Width 12.9 % (11.5-14.5); Segmented Neutrophils % 70.4 %; White Blood Count 8.2 K/mcL (4.3-11.1)
[2019-10-08] MEDS ORDERED: 0.9 % Sodium Chloride 1,000 ML IVC ONE (15:58)
[2019-10-08 16:06] LABS: BUN/Creatinine Ratio 14 (6-26); Blood Urea Nitrogen 32 mg/dL (8-23); Carbon Dioxide 27 mEq/L (23-29); Chloride 94 mEq/L (98-107); Glucose 142 mg/dL (70-105); Osmolality,Calculated 279 (280-300); Potassium 3.4 mEq/L (3.5-5.1); Sodium 130 mEq/L (136-145); Troponin I < 0.03 ng/mL (< 0.04); eGFR For African Americans 33 (> 60); eGFR For Non-African Americans 27 (> 60)
[2019-10-08 17:32] LABS: INR 1.5; Prothrombin Time 16.7 Seconds (9.4-12.1)
[2019-10-08 17:35] LABS: Activated Partial Thrombo Time 43.5 Seconds (26.0-36.0)
[2019-10-08 17:48] LABS: Albumin 3.4 g/dL (3.5-5.7); Albumin/Globulin Ratio 1.7 (1.1-2.2); Bilirubin,Direct 0.1 mg/dL (0.0-0.2); Bilirubin,Indirect 0.5 mg/dL (0.0-1.0); Bilirubin,Total 0.6 mg/dL (0.3-1.0); Magnesium 1.8 mg/dL (1.6-2.6); Total Protein 5.4 g/dL (6.4-8.9)
[2019-10-08] MEDS: 0.9 % Sodium Chloride 1,000 ML IVC SCH ×2 (18:12→21:10)
[2019-10-08 18:13] LABS: Bilirubin,Urine Small (Negative); Blood,Urine Negative (Negative); Clarity,Urine Cloudy (Clear); Color,Urine Dark Yellow (Yellow); Glucose,Urine (UA) Normal (Normal); Ketones,Urine Negative (Negative); Leukocyte Esterase,Urine Negative (Negative); Nitrite,Urine Negative (Negative); PH,Urine 5.5 pH Units (5.0-8.0); Protein,Urine Trace mg/dL (Neg-Trace); Specific Gravity,Urine 1.017 (1.010-1.025); Urobilinogen,Urine Normal (Normal)
[2019-10-08 18:14] LABS: Bacteria,Urine None Seen per hpf (None-Few); RBC,Urine 0-3 per hpf (0-3); Squamous Epithelial Cell,Urine Many per lpf (None-Few); WBC,Urine 0-3 per hpf (0-3)
[2019-10-08 18:31] LABS: Hyaline Casts,Urine Moderate per lpf (None-Few)
[2019-10-08] MEDS ORDERED: predniSONE 20 MG TABLET PO PRN (23:44)
[2019-10-08] MEDS ORDERED: GuaiFENesin Liq 200 MG/10 ML UDC PO PRN (23:44)
[2019-10-08] MEDS ORDERED: Acetaminophen 325 MG TABLET PO PRN (23:48)
[2019-10-09] MEDS: Melatonin 3 MG TABLET PO PRN ×2 (00:39→21:45)
[2019-10-09] MEDS ORDERED: Naloxone 0.4 MG/ML INJ IVP PRN (01:36)
[2019-10-09] MEDS ORDERED: *HR* Dextrose 50 % in Water (Syg) 50 ML SYRINGE IVP PRN (01:39)
[2019-10-09] MEDS ORDERED: Dextrose Gel 15 GM/37.5 ML TUBE PO PRN ×2 (01:39)
[2019-10-09] MEDS ORDERED: D5% in Water 1,000 ML IVC PRN (01:39)
[2019-10-09] MEDS: 0.9 % Sodium Chloride 1,000 ML IVC SCH (05:37)
[2019-10-09 06:40] LABS: Hematocrit 41.2 % (37.5-50.1); Mean Corpuscular HGB Conc 33.3 g/dL (31.6-35.5); Mean Corpuscular Hemoglobin 31.1 pg (28.0-33.3); Mean Corpuscular Volume 93.6 fL (83.0-100.0); Mean Platelet Volume 9.2 fL (9.4-12.4); Platelet Count 197 K/mcL (140-400); Red Cell Distribution Width 12.8 % (11.5-14.5); White Blood Count 6.3 K/mcL (4.3-11.1)
[2019-10-09 06:42] LABS: Hemoglobin 13.7 g/dL (12.9-16.9)
[2019-10-09 06:57] LABS: Potassium 3.2 mEq/L (3.5-5.1)
[2019-10-09] MEDS ORDERED: 0.9 % Sodium Chloride 1,000 ML IVC SCH (08:00)
[2019-10-09] MEDS: Insulin LISPRO 300 UNITS/3 ML VIAL SQ SCH ×3 (10:13→17:04)
[2019-10-09] MEDS: Aspirin Enteric Coated 81 MG Tablet PO SCH (10:15)
[2019-10-09] MEDS: BuPROPion SR (12 HR) 150 MG TABLET PO SCH ×2 (10:15→21:43)
[2019-10-09] MEDS: *HR* Rivaroxaban 10 MG TABLET PO SCH (10:15)
[2019-10-09] MEDS: Metoprolol XL (24 HR) Succ 50 MG TAB.ER.24H PO SCH ×2 (10:15→21:43)
[2019-10-09] MEDS ORDERED: Doxycycline 100 MG CAPSULE PO PRN (15:21)
[2019-10-09] MEDS ORDERED: Nitroglycerin 0.4 MG TAB.SUBL SL PRN (15:21)
[2019-10-09] MEDS ORDERED: Ondansetron ODT 4 MG TAB.RAPDIS PO PRN (15:21)
[2019-10-09] MEDS ORDERED: Budesonide/Formoterol 160/4.5 1 PUFF INH IH SCH (15:30)
[2019-10-09] MEDS: Budesonide/Formoterol 160/4.5 1 PUFF INH IH SCH (20:20)
[2019-10-09] MEDS ORDERED: Insulin LISPRO 300 UNITS/3 ML VIAL SQ SCH (21:00)
[2019-10-10 07:39] VITALS: BP 151/74
[2019-10-10] MEDS: Budesonide/Formoterol 160/4.5 1 PUFF INH IH SCH (07:44)
[2019-10-10 08:29] LABS: BUN/Creatinine Ratio 18 (6-26); Blood Urea Nitrogen 23 mg/dL (8-23); Calcium 8.8 mg/dL (8.6-10.3); Carbon Dioxide 28 mEq/L (23-29); Chloride 103 mEq/L (98-107); Glucose 156 mg/dL (70-105); Magnesium 1.8 mg/dL (1.6-2.6); Osmolality,Calculated 291 (280-300); Phosphorous 2.7 mg/dL (2.7-4.5); Potassium 4.1 mEq/L (3.5-5.1); Sodium 137 mEq/L (136-145); eGFR For African Americans > 60 (> 60); eGFR For Non-African Americans 56 (> 60)
[2019-10-10] MEDS ORDERED: Isosorbide MONOnitrate (24 HR) 30 MG TAB.ER.24H PO SCH (09:00)
[2019-10-10] MEDS ORDERED: Finasteride 5 MG TABLET PO SCH (09:00)
[2019-10-10] MEDS: Aspirin Enteric Coated 81 MG Tablet PO SCH (09:22)
[2019-10-10] MEDS: Metoprolol XL (24 HR) Succ 50 MG TAB.ER.24H PO SCH (09:22)
[2019-10-10] MEDS: *HR* Rivaroxaban 10 MG TABLET PO SCH (09:22)
[2019-10-10] MEDS: BuPROPion SR (12 HR) 150 MG TABLET PO SCH (09:22)
[2019-10-10] MEDS: Insulin LISPRO 300 UNITS/3 ML VIAL SQ SCH (09:22)
== END 2019-10-10 11:35 | disposition home or self-care (01) ==
LOC: EMEROOARM 15:02 → 3BNU 15:02 → SUATTDRO 20:19 → 3BNU 20:20
PROVIDERS: ADMIT Family Medicine; ATTEND Internal Medicine

== ENCOUNTER 2019-10-31 10:23 | Observation (INO) ==
[2019-10-31] MEDS ORDERED: Isovue-370 500 ML BOTTLE IVP ONE (11:00)
[2019-10-31] MEDS ORDERED: 0.9 % Sodium Chloride 1,000 ML IVC ONE (11:00)
[2019-10-31 11:31] LABS: Bilirubin,Urine Negative (Negative); Blood,Urine Negative (Negative); Clarity,Urine Clear (Clear); Color,Urine Yellow (Yellow); Glucose,Urine (UA) Normal (Normal); Ketones,Urine Negative (Negative); Leukocyte Esterase,Urine Negative (Negative); Nitrite,Urine Negative (Negative); PH,Urine 5.5 pH Units (5.0-8.0); Protein,Urine Negative (Neg-Trace); Specific Gravity,Urine 1.019 (1.010-1.025); Urobilinogen,Urine Normal (Normal)
[2019-10-31 11:49] LABS: Basophils % 0.5 %; Eosinophils # 0.1 K/mcL (0.0-0.6); Eosinophils % 2.2 %; Hematocrit 42.4 % (37.5-50.1); Hemoglobin 14.2 g/dL (12.9-16.9); Immature Granulocytes % 0.5 % (0-4); Lymphocytes # 1.1 K/mcL (0.6-4.6); Lymphocytes % 20.6 %; Mean Corpuscular HGB Conc 33.5 g/dL (31.6-35.5); Mean Corpuscular Hemoglobin 30.7 pg (28.0-33.3); Mean Corpuscular Volume 91.8 fL (83.0-100.0); Mean Platelet Volume 9.3 fL (9.4-12.4); Monocytes # 0.4 K/mcL (0.0-1.3); Neutrophils # 3.7 K/mcL (1.6-8.9); Platelet Count 221 K/mcL (140-400); Red Blood Count 4.62 M/mcL (4.19-5.50); Red Cell Distribution Width 13.2 % (11.5-14.5); Segmented Neutrophils % 68.2 %; White Blood Count 5.5 K/mcL (4.3-11.1)
[2019-10-31 12:12] LABS: Alanine Aminotransferase 10 Units/L (7-52); Albumin 3.8 g/dL (3.5-5.7); Albumin/Globulin Ratio 1.7 (1.1-2.2); Alkaline Phosphatase 48 Units/L (34-104); Aspartate Amino Transferase 12 Units/L (13-39); BUN/Creatinine Ratio 16 (6-26); Bilirubin,Direct 0.1 mg/dL (0.0-0.2); Bilirubin,Indirect 0.5 mg/dL (0.0-1.0); Bilirubin,Total 0.6 mg/dL (0.3-1.0); Blood Urea Nitrogen 20 mg/dL (8-23); Calcium 8.8 mg/dL (8.6-10.3); Carbon Dioxide 27 mEq/L (23-29); Chloride 101 mEq/L (98-107); Globulin 2.2 g/dL (2.4-3.5); Glucose 134 mg/dL (70-105); Lipase 26 Units/L (11-82); Osmolality,Calculated 287 (280-300); Potassium 3.8 mEq/L (3.5-5.1); Sodium 136 mEq/L (136-145); Troponin I < 0.03 ng/mL (< 0.04); eGFR For African Americans > 60 (> 60); eGFR For Non-African Americans 57 (> 60)
[2019-10-31] MEDS ORDERED: Aspirin 325 MG TABLET PO ONE (13:54)
[2019-10-31] MEDS ORDERED: Naloxone 0.4 MG/ML INJ IVP PRN (14:26)
[2019-10-31] MEDS ORDERED: MOM Conc 10 ML UD.LIQ PO PRN (14:26)
[2019-10-31] MEDS ORDERED: Ondansetron 4 MG/2 ML VIAL IVP PRN (14:26)
[2019-10-31] MEDS ORDERED: Ipratropium/Albuterol Neb 3 ML IH PRN (15:40)
[2019-10-31] MEDS ORDERED: *HR* Dextrose 50 % in Water (Syg) 50 ML SYRINGE IVP PRN (15:40)
[2019-10-31] MEDS ORDERED: D5% in Water 1,000 ML IVC PRN (15:40)
[2019-10-31] MEDS ORDERED: Dextrose Gel 15 GM/37.5 ML TUBE PO PRN ×2 (15:40)
[2019-10-31] MEDS ORDERED: Nitroglycerin 0.4 MG TAB.SUBL SL PRN (15:44)
[2019-10-31] MEDS ORDERED: Nicotine 2 MG GUM BC PRN (15:51)
[2019-10-31] MEDS: Insulin LISPRO 300 UNITS/3 ML VIAL SQ SCH ×2 (17:39→19:58)
[2019-10-31] MEDS: Pantoprazole 40 MG VIAL IVP SCH (17:42)
[2019-10-31] MEDS: *HR* Rivaroxaban 10 MG TABLET PO SCH (17:42)
[2019-10-31] MEDS: BuPROPion SR (12 HR) 150 MG TABLET PO SCH (19:47)
[2019-10-31] MEDS: Budesonide/Formoterol 160/4.5 1 PUFF INH IH SCH (20:17)
[2019-11-01] MEDS: Acetaminophen 325 MG TABLET PO PRN ×2 (00:17→23:37)
[2019-11-01 04:32] LABS: Basophils # 0.1 K/mcL (0.0-0.2); Eosinophils # 0.1 K/mcL (0.0-0.6); Eosinophils % 2.6 %; Hematocrit 40.7 % (37.5-50.1); Hemoglobin 13.6 g/dL (12.9-16.9); Immature Granulocytes % 0.2 % (0-4); Lymphocytes # 1.3 K/mcL (0.6-4.6); Lymphocytes % 26.6 %; Mean Corpuscular HGB Conc 33.4 g/dL (31.6-35.5); Mean Corpuscular Hemoglobin 30.9 pg (28.0-33.3); Mean Corpuscular Volume 92.5 fL (83.0-100.0); Mean Platelet Volume 9.2 fL (9.4-12.4); Monocytes # 0.5 K/mcL (0.0-1.3); Monocytes % 9.5 %; Platelet Count 206 K/mcL (140-400); Red Cell Distribution Width 13.4 % (11.5-14.5); Segmented Neutrophils % 60.1 %
[2019-11-01 04:49] LABS: BUN/Creatinine Ratio 15 (6-26); Blood Urea Nitrogen 18 mg/dL (8-23); Calcium 8.4 mg/dL (8.6-10.3); Carbon Dioxide 29 mEq/L (23-29); Chloride 104 mEq/L (98-107); Chol/HDL Ratio 3.3 (0-4.9); Cholesterol 128 mg/dL (< 200); Glucose 106 mg/dL (70-105); HDL Cholesterol 39 mg/dL (40-59); LDL Cholesterol,Calculated 59 mg/dL (0-99); Osmolality,Calculated 290 (280-300); Potassium 3.8 mEq/L (3.5-5.1); Sodium 139 mEq/L (136-145); Triglycerides 150 mg/dL (< 150); eGFR For African Americans > 60 (> 60); eGFR For Non-African Americans 57 (> 60)
[2019-11-01] MEDS: Pantoprazole 40 MG VIAL IVP SCH ×2 (05:20→17:49)
[2019-11-01] MEDS ORDERED: Regadenoson 0.4 MG/5 ML SYRINGE IVP ONE (08:03)
[2019-11-01] MEDS: Budesonide/Formoterol 160/4.5 1 PUFF INH IH SCH ×2 (08:09→19:51)
[2019-11-01] MEDS: Insulin LISPRO 300 UNITS/3 ML VIAL SQ SCH ×4 (08:16→20:43)
[2019-11-01] MEDS: Finasteride 5 MG TABLET PO SCH (08:29)
[2019-11-01] MEDS: Aspirin 81 MG TAB.CHEW PO SCH (08:29)
[2019-11-01] MEDS: methIMAzole 5 MG TABLET PO SCH (08:30)
[2019-11-01] MEDS: Loratadine 10 MG TABLET PO SCH (08:30)
[2019-11-01] MEDS: Cholecalciferol (D-3) 1,000 UNIT (25MCG) TABLET PO SCH (08:30)
[2019-11-01] MEDS: BuPROPion SR (12 HR) 150 MG TABLET PO SCH ×2 (08:30→20:42)
[2019-11-01] MEDS ORDERED: Furosemide 20 MG TABLET PO PRN (08:44)
[2019-11-01] MEDS: Lisinopril 20 MG TABLET PO SCH (09:53)
[2019-11-01] MEDS ORDERED: Perflutren Lipid Microsphere 1.3 ML in 0.9 % Sodium Chloride 8.7 ML IVP ONE (11:00)
[2019-11-01] MEDS: Isosorbide MONOnitrate (24 HR) 30 MG TAB.ER.24H PO SCH (14:00)
[2019-11-01] MEDS: Metoprolol XL (24 HR) Succ 50 MG TAB.ER.24H PO SCH ×2 (14:00→20:42)
[2019-11-01] MEDS ORDERED: hydrALAZINE 10 MG TABLET PO PRN (14:15)
[2019-11-01] MEDS: *HR* Rivaroxaban 10 MG TABLET PO SCH (17:49)
[2019-11-02 04:31] LABS: BUN/Creatinine Ratio 14 (6-26); Blood Urea Nitrogen 18 mg/dL (8-23); Calcium 8.7 mg/dL (8.6-10.3); Carbon Dioxide 29 mEq/L (23-29); Chloride 102 mEq/L (98-107); Glucose 167 mg/dL (70-105); Magnesium 1.8 mg/dL (1.6-2.6); Osmolality,Calculated 286 (280-300); Phosphorous 2.8 mg/dL (2.7-4.5); Potassium 4.1 mEq/L (3.5-5.1); Sodium 135 mEq/L (136-145); eGFR For African Americans > 60 (> 60); eGFR For Non-African Americans 55 (> 60)
[2019-11-02] MEDS: Pantoprazole 40 MG VIAL IVP SCH (05:22)
[2019-11-02] MEDS: Budesonide/Formoterol 160/4.5 1 PUFF INH IH SCH (07:51)
[2019-11-02 09:25] VITALS: BP 150/82
[2019-11-02] MEDS: Lisinopril 20 MG TABLET PO SCH (09:46)
[2019-11-02] MEDS: Isosorbide MONOnitrate (24 HR) 30 MG TAB.ER.24H PO SCH (09:46)
[2019-11-02] MEDS: methIMAzole 5 MG TABLET PO SCH (09:46)
[2019-11-02] MEDS: BuPROPion SR (12 HR) 150 MG TABLET PO SCH (09:46)
[2019-11-02] MEDS: Cholecalciferol (D-3) 1,000 UNIT (25MCG) TABLET PO SCH (09:46)
[2019-11-02] MEDS: Aspirin 81 MG TAB.CHEW PO SCH (09:46)
[2019-11-02] MEDS: Finasteride 5 MG TABLET PO SCH (09:46)
[2019-11-02] MEDS: Loratadine 10 MG TABLET PO SCH (09:46)
[2019-11-02] MEDS: Metoprolol XL (24 HR) Succ 50 MG TAB.ER.24H PO SCH (09:46)
[2019-11-02] MEDS: Insulin LISPRO 300 UNITS/3 ML VIAL SQ SCH (09:48)
== END 2019-11-02 12:11 | disposition home health service (06) ==
LOC: 3BNU 10:23 → EMEROOARM 10:23 → SUATTDRO 14:04 → 3BNU 14:48
PROVIDERS: ADMIT Student in an Organized Health Care Education/Training Program; ATTEND Internal Medicine

== ENCOUNTER 2020-11-22 14:43 | Observation (INO) ==
[2020-11-22] MEDS ORDERED: Naloxone 0.4 MG/ML INJ IVP PRN (20:31)
[2020-11-22] MEDS ORDERED: Acetaminophen 325 MG TABLET PO PRN (20:31)
[2020-11-22] MEDS ORDERED: Ondansetron 4 MG/2 ML VIAL IVP PRN (20:31)
[2020-11-22] MEDS ORDERED: *HR* Dextrose 50 % in Water (Vial) 50 ML VIAL IVP PRN (20:50)
[2020-11-22] MEDS ORDERED: Dextrose Gel 15 GM/37.5 ML TUBE PO PRN ×2 (20:50)
[2020-11-22] MEDS ORDERED: D5% in Water 1,000 ML IVC PRN (20:50)
[2020-11-22] MEDS ORDERED: Insulin LISPRO 300 UNITS/3 ML VIAL SUBQ SCH (21:00)
[2020-11-22 21:05] LABS: Basophils # 0.1 K/mcL (0.0-0.2); Basophils % 0.8 %; Eosinophils # 0.1 K/mcL (0.0-0.6); Eosinophils % 0.9 %; Hematocrit 41.2 % (37.5-50.1); Hemoglobin 13.2 g/dL (12.9-16.9); Immature Granulocytes % 0.5 % (0-4); Lymphocytes # 1.2 K/mcL (0.6-4.6); Lymphocytes % 17.7 %; Mean Corpuscular Hemoglobin 29.1 pg (28.0-33.3); Mean Corpuscular Volume 90.7 fL (83.0-100.0); Monocytes # 0.5 K/mcL (0.0-1.3); Monocytes % 8.1 %; Neutrophils # 4.7 K/mcL (1.6-8.9); Platelet Count 221 K/mcL (140-400); Red Blood Count 4.54 M/mcL (4.19-5.50); Red Cell Distribution Width 14.4 % (11.5-14.5); White Blood Count 6.6 K/mcL (4.3-11.1)
[2020-11-22 21:10] LABS: INR 2.2; Prothrombin Time 24.5 Seconds (9.4-12.1)
[2020-11-22 21:25] LABS: Alanine Aminotransferase 9 Units/L (7-52); Albumin 3.5 g/dL (3.5-5.7); Albumin/Globulin Ratio 1.5 (1.1-2.2); Alkaline Phosphatase 63 Units/L (34-104); Aspartate Amino Transferase 10 Units/L (13-39); BUN/Creatinine Ratio 17 (6-26); Bilirubin,Total 0.4 mg/dL (0.3-1.0); Blood Urea Nitrogen 21 mg/dL (8-23); Carbon Dioxide 27 mEq/L (23-29); Chloride 101 mEq/L (98-107); Globulin 2.4 g/dL (2.4-3.5); Glucose 155 mg/dL (70-105); Magnesium 1.8 mg/dL (1.6-2.6); Osmolality,Calculated 286 (280-300); Potassium 3.8 mEq/L (3.5-5.1); Sodium 135 mEq/L (136-145); Total Protein 5.9 g/dL (6.4-8.9); eGFR For African Americans > 60 (> 60); eGFR For Non-African Americans 57 (> 60)
[2020-11-23] MEDS: Insulin LISPRO 300 UNITS/3 ML VIAL SUBQ SCH ×4 (01:02→16:59)
[2020-11-23 01:10] LABS: Troponin I < 0.03 ng/mL (< 0.04)
[2020-11-23] MEDS: Ipratropium/Albuterol Neb 3 ML IH PRN ×2 (02:47→08:46)
[2020-11-23 04:08] LABS: Chol/HDL Ratio 2.9 (0-4.9)
[2020-11-23] MEDS ORDERED: Morphine Sulfate 2 MG/ML SYRINGE IVP ONE (07:49)
[2020-11-23] MEDS ORDERED: Perflutren Lipid Microsphere 1.3 ML in 0.9 % Sodium Chloride 8.7 ML IVP PRN (09:00)
[2020-11-23] MEDS: Furosemide 20 MG TABLET PO SCH (09:22)
[2020-11-23] MEDS ORDERED: Isovue-370 500 ML BOTTLE IVP ONE (10:11)
[2020-11-23] MEDS: lisinopriL 10 MG TABLET PO SCH (10:14)
[2020-11-23] MEDS ORDERED: *HR* HYDROcodone/Acet 5/325 mg TABLET PO PRN (12:44)
[2020-11-23] MEDS: predniSONE 20 MG TABLET PO SCH (13:20)
[2020-11-23] MEDS: Pantoprazole 40 MG VIAL IVP SCH ×2 (13:20→16:56)
[2020-11-23] MEDS: Ipratropium/Albuterol Neb 3 ML IH SCH ×4 (13:59→23:44)
[2020-11-23] MEDS ORDERED: *HR* Rivaroxaban 10 MG TABLET PO SCH (17:00)
[2020-11-24] MEDS: Insulin LISPRO 300 UNITS/3 ML VIAL SUBQ SCH ×3 (01:56→12:57)
[2020-11-24] MEDS: Ipratropium/Albuterol Neb 3 ML IH SCH ×3 (03:45→11:44)
[2020-11-24] MEDS: Pantoprazole 40 MG VIAL IVP SCH (05:18)
[2020-11-24] MEDS: lisinopriL 10 MG TABLET PO SCH (08:36)
[2020-11-24] MEDS: predniSONE 20 MG TABLET PO SCH (08:36)
[2020-11-24] MEDS: Furosemide 20 MG TABLET PO SCH (08:37)
[2020-11-24] MEDS ORDERED: methIMAzole 5 MG TABLET PO SCH (09:00)
[2020-11-24] MEDS ORDERED: Loratadine 10 MG TABLET PO SCH (09:00)
[2020-11-24] MEDS ORDERED: Finasteride 5 MG TABLET PO SCH (09:00)
[2020-11-24] MEDS ORDERED: Insulin DETEMIR 100 UNIT/ML X5UNITS SUBQ SCH ×2 (09:00→21:00)
[2020-11-24] MEDS ORDERED: Isosorbide MONOnitrate (24 HR) 30 MG TAB.ER.24H PO SCH (09:00)
[2020-11-24] MEDS ORDERED: Aspirin Enteric Coated 81 MG Tablet PO SCH (09:00)
[2020-11-24] MEDS ORDERED: BuPROPion SR (12 HR) 150 MG TABLET PO SCH (09:00)
[2020-11-24] MEDS ORDERED: Tiotropium 10 INH DOSE IH SCH (10:00)
[2020-11-24] MEDS ORDERED: Budesonide/Formoterol 160/4.5 1 PUFF INH IH SCH (10:00)
[2020-11-24 10:48] VITALS: BP 164/79
[2020-11-24] MEDS ORDERED: lisinopriL 10 MG TABLET PO ONE (11:11)
[2020-11-25] MEDS ORDERED: lisinopriL 20 MG TABLET PO SCH (09:00)
== END 2020-11-24 14:01 ==
LOC: 3BNU → SUATTDRO 19:15
PROVIDERS: ADMIT Internal Medicine; ATTEND Internal Medicine

== ENCOUNTER 2020-12-11 15:37 | Inpatient (IN) ==
[2020-12-11] MEDS ORDERED: Ondansetron 4 MG/2 ML VIAL IVP PRN (20:11)
[2020-12-11] MEDS ORDERED: Melatonin 3 MG TABLET PO PRN (20:11)
[2020-12-11] MEDS ORDERED: Naloxone 0.4 MG/ML INJ IVP PRN (20:11)
[2020-12-11] MEDS ORDERED: MOM Conc 10 ML UD.LIQ PO PRN (20:11)
[2020-12-11] MEDS ORDERED: Dextrose Gel 15 GM/37.5 ML TUBE PO PRN ×2 (20:52)
[2020-12-11] MEDS ORDERED: D5% in Water 1,000 ML IVC PRN (20:52)
[2020-12-11] MEDS ORDERED: *HR* Dextrose 50 % in Water (Vial) 50 ML VIAL IVP PRN (20:52)
[2020-12-11] MEDS ORDERED: Benzonatate 100 MG CAPSULE PO PRN (20:53)
[2020-12-11] MEDS: Insulin DETEMIR 100 UNIT/ML X5UNITS SUBQ SCH (21:37)
[2020-12-11] MEDS ORDERED: *HR* HYDROmorphone (PF) 1 MG/ML SYRINGE IM ONE (23:42)
[2020-12-12 02:56] LABS: Hematocrit 37.5 % (37.5-50.1); Hemoglobin 12.2 g/dL (12.9-16.9); Immature Granulocytes % 0.3 % (0-4); Lymphocytes # 0.3 K/mcL (0.6-4.6); Lymphocytes % 5.1 %; Mean Corpuscular HGB Conc 32.5 g/dL (31.6-35.5); Mean Corpuscular Volume 89.3 fL (83.0-100.0); Mean Platelet Volume 8.8 fL (9.4-12.4); Monocytes # 0.2 K/mcL (0.0-1.3); Monocytes % 3.6 %; Neutrophils # 5.3 K/mcL (1.6-8.9); Platelet Count 144 K/mcL (140-400); Red Cell Distribution Width 14.4 % (11.5-14.5); White Blood Count 5.8 K/mcL (4.3-11.1)
[2020-12-12 03:20] LABS: C-Reactive Protein 148 mg/L (Less than 10); Lactate Dehydrogenase 157 Units/L (140-271)
[2020-12-12 03:21] LABS: BUN/Creatinine Ratio 17 (6-26); Blood Urea Nitrogen 19 mg/dL (8-23); Calcium 8.1 mg/dL (8.6-10.3); Carbon Dioxide 23 mEq/L (23-29); Chloride 104 mEq/L (98-107); Glucose 176 mg/dL (70-105); Magnesium 1.8 mg/dL (1.6-2.6); Osmolality,Calculated 287 (280-300); Phosphorous 3.4 mg/dL (2.7-4.5); Sodium 135 mEq/L (136-145); Troponin I < 0.03 ng/mL (< 0.04); eGFR For African Americans > 60 (> 60); eGFR For Non-African Americans > 60 (> 60)
[2020-12-12 03:39] LABS: Ferritin 175 ng/mL (20-250)
[2020-12-12] MEDS ORDERED: *HR* Heparin 5,000 UNIT/ML VIAL SQ SCH (06:00)
[2020-12-12] MEDS: cefTRIAXone 1,000 MG in Water for inj. (sterile) 10 ML IVP SCH (08:34)
[2020-12-12] MEDS: Azithromycin 500 MG in 0.9 % Sodium Chloride 250 ML IVPB SCH (08:36)
[2020-12-12] MEDS: Insulin LISPRO 300 UNITS/3 ML VIAL SUBQ SCH ×4 (08:38→20:44)
[2020-12-12] MEDS: Insulin DETEMIR 100 UNIT/ML X5UNITS SUBQ SCH ×2 (08:46→20:44)
[2020-12-12] MEDS ORDERED: Furosemide 20 MG/2 ML VIAL IVP ONE (11:43)
[2020-12-12] MEDS: *HR* Rivaroxaban 10 MG TABLET PO SCH (16:34)
[2020-12-13 03:56] LABS: Basophils % 0.1 %; Hematocrit 38.6 % (37.5-50.1); Hemoglobin 12.6 g/dL (12.9-16.9); Immature Granulocytes % 0.3 % (0-4); Lymphocytes # 0.5 K/mcL (0.6-4.6); Lymphocytes % 6.6 %; Mean Corpuscular HGB Conc 32.6 g/dL (31.6-35.5); Mean Corpuscular Hemoglobin 29.4 pg (28.0-33.3); Mean Corpuscular Volume 90.2 fL (83.0-100.0); Mean Platelet Volume 9.5 fL (9.4-12.4); Monocytes # 0.4 K/mcL (0.0-1.3); Monocytes % 5.1 %; Neutrophils # 6.4 K/mcL (1.6-8.9); Platelet Count 165 K/mcL (140-400); Red Blood Count 4.28 M/mcL (4.19-5.50); Red Cell Distribution Width 13.8 % (11.5-14.5); Segmented Neutrophils % 87.9 %; White Blood Count 7.3 K/mcL (4.3-11.1)
[2020-12-13 04:06] LABS: BUN/Creatinine Ratio 24 (6-26); Blood Urea Nitrogen 24 mg/dL (8-23); Calcium 8.7 mg/dL (8.6-10.3); Carbon Dioxide 27 mEq/L (23-29); Chloride 104 mEq/L (98-107); Glucose 159 mg/dL (70-105); Osmolality,Calculated 289 (280-300); Potassium 4.3 mEq/L (3.5-5.1); Sodium 136 mEq/L (136-145); eGFR For African Americans > 60 (> 60); eGFR For Non-African Americans > 60 (> 60)
[2020-12-13] MEDS: Finasteride 5 MG TABLET PO SCH (07:57)
[2020-12-13] MEDS: Aspirin Enteric Coated 81 MG Tablet PO SCH (07:57)
[2020-12-13] MEDS: Loratadine 10 MG TABLET PO SCH (07:57)
[2020-12-13] MEDS: Isosorbide MONOnitrate (24 HR) 30 MG TAB.ER.24H PO SCH (07:57)
[2020-12-13] MEDS: Metoprolol XL (24 HR) Succ 50 MG TAB.ER.24H PO SCH ×2 (07:57→19:51)
[2020-12-13] MEDS: Furosemide 20 MG/2 ML VIAL IVP SCH (07:58)
[2020-12-13] MEDS: lisinopriL 20 MG TABLET PO SCH (07:58)
[2020-12-13] MEDS: Cholecalciferol (D-3) 1,000 UNIT (25MCG) TABLET PO SCH (07:58)
[2020-12-13] MEDS: BuPROPion SR (12 HR) 150 MG TABLET PO SCH ×2 (07:58→19:51)
[2020-12-13] MEDS: cefTRIAXone 1,000 MG in Water for inj. (sterile) 10 ML IVP SCH (07:59)
[2020-12-13] MEDS: Azithromycin 500 MG in 0.9 % Sodium Chloride 250 ML IVPB SCH (07:59)
[2020-12-13] MEDS: Insulin DETEMIR 100 UNIT/ML X5UNITS SUBQ SCH ×2 (08:13→19:52)
[2020-12-13] MEDS: Insulin LISPRO 300 UNITS/3 ML VIAL SUBQ SCH ×4 (08:15→20:20)
[2020-12-13] MEDS: Budesonide/Formoterol 160/4.5 1 PUFF INH IH SCH ×2 (11:05→20:42)
[2020-12-13] MEDS: Tiotropium 10 INH DOSE IH SCH (11:07)
[2020-12-13] MEDS: methIMAzole 5 MG TABLET PO SCH (12:05)
[2020-12-13] MEDS: *HR* Rivaroxaban 10 MG TABLET PO SCH (16:53)
[2020-12-14] MEDS: *HR* Labetalol 20 MG/4 ML SYRINGE IVP PRN ×2 (01:25→05:58)
[2020-12-14 03:24] LABS: Hematocrit 37.2 % (37.5-50.1); Hemoglobin 11.8 g/dL (12.9-16.9); Immature Granulocytes % 0.4 % (0-4); Lymphocytes # 0.5 K/mcL (0.6-4.6); Lymphocytes % 6.2 %; Mean Corpuscular HGB Conc 31.7 g/dL (31.6-35.5); Mean Corpuscular Hemoglobin 28.6 pg (28.0-33.3); Mean Corpuscular Volume 90.1 fL (83.0-100.0); Mean Platelet Volume 9.4 fL (9.4-12.4); Monocytes # 0.5 K/mcL (0.0-1.3); Monocytes % 5.9 %; Neutrophils # 6.7 K/mcL (1.6-8.9); Platelet Count 184 K/mcL (140-400); Red Blood Count 4.13 M/mcL (4.19-5.50); Red Cell Distribution Width 13.8 % (11.5-14.5); Segmented Neutrophils % 87.5 %; White Blood Count 7.6 K/mcL (4.3-11.1)
[2020-12-14 03:58] LABS: BUN/Creatinine Ratio 27 (6-26); Blood Urea Nitrogen 26 mg/dL (8-23); Calcium 8.5 mg/dL (8.6-10.3); Carbon Dioxide 25 mEq/L (23-29); Chloride 103 mEq/L (98-107); Glucose 160 mg/dL (70-105); Osmolality,Calculated 292 (280-300); Sodium 137 mEq/L (136-145); eGFR For African Americans > 60 (> 60); eGFR For Non-African Americans > 60 (> 60)
[2020-12-14] MEDS: BuPROPion SR (12 HR) 150 MG TABLET PO SCH ×2 (09:00→22:03)
[2020-12-14] MEDS: Metoprolol XL (24 HR) Succ 50 MG TAB.ER.24H PO SCH ×2 (09:00→22:02)
[2020-12-14] MEDS: Loratadine 10 MG TABLET PO SCH (09:00)
[2020-12-14] MEDS: Isosorbide MONOnitrate (24 HR) 30 MG TAB.ER.24H PO SCH (09:00)
[2020-12-14] MEDS: Aspirin Enteric Coated 81 MG Tablet PO SCH (09:00)
[2020-12-14] MEDS: Finasteride 5 MG TABLET PO SCH (09:00)
[2020-12-14] MEDS: Cholecalciferol (D-3) 1,000 UNIT (25MCG) TABLET PO SCH (09:00)
[2020-12-14] MEDS: lisinopriL 20 MG TABLET PO SCH (09:00)
[2020-12-14] MEDS: methIMAzole 5 MG TABLET PO SCH (09:00)
[2020-12-14] MEDS: Furosemide 20 MG/2 ML VIAL IVP SCH (09:00)
[2020-12-14] MEDS: Tiotropium 10 INH DOSE IH SCH (10:36)
[2020-12-14] MEDS: Budesonide/Formoterol 160/4.5 1 PUFF INH IH SCH ×2 (10:36→22:25)
[2020-12-14] MEDS: Morphine Sulfate Immed Rel 15 MG TABLET PO PRN ×3 (10:40→23:48)
[2020-12-14] MEDS: Insulin LISPRO 300 UNITS/3 ML VIAL SUBQ SCH ×4 (11:08→22:05)
[2020-12-14] MEDS: Insulin DETEMIR 100 UNIT/ML X5UNITS SUBQ SCH ×2 (16:32→22:04)
[2020-12-14] MEDS: *HR* Rivaroxaban 10 MG TABLET PO SCH (17:26)
[2020-12-15] MEDS: Morphine Sulfate Immed Rel 15 MG TABLET PO PRN (06:15)
[2020-12-15 07:29] LABS: White Blood Count 5.6 K/mcL (4.3-11.1)
[2020-12-15 07:30] LABS: Basophils % 0.2 %; Eosinophils % 0.2 %; Hematocrit 37.9 % (37.5-50.1); Hemoglobin 12.2 g/dL (12.9-16.9); Immature Granulocytes % 0.4 % (0-4); Lymphocytes # 0.7 K/mcL (0.6-4.6); Lymphocytes % 12.1 %; Mean Corpuscular HGB Conc 32.2 g/dL (31.6-35.5); Mean Platelet Volume 9.5 fL (9.4-12.4); Monocytes # 0.6 K/mcL (0.0-1.3); Monocytes % 10.3 %; Neutrophils # 4.3 K/mcL (1.6-8.9); Platelet Count 202 K/mcL (140-400); Red Blood Count 4.21 M/mcL (4.19-5.50); Red Cell Distribution Width 14.1 % (11.5-14.5); Segmented Neutrophils % 76.8 %
[2020-12-15] MEDS: Tiotropium 10 INH DOSE IH SCH (07:35)
[2020-12-15] MEDS: Budesonide/Formoterol 160/4.5 1 PUFF INH IH SCH ×2 (07:35→19:49)
[2020-12-15 07:38] LABS: BUN/Creatinine Ratio 25 (6-26); Blood Urea Nitrogen 30 mg/dL (8-23); Calcium 8.8 mg/dL (8.6-10.3); Carbon Dioxide 31 mEq/L (23-29); Chloride 102 mEq/L (98-107); Glucose 173 mg/dL (70-105); Osmolality,Calculated 292 (280-300); Potassium 4.2 mEq/L (3.5-5.1); Sodium 136 mEq/L (136-145); eGFR For African Americans > 60 (> 60); eGFR For Non-African Americans > 60 (> 60)
[2020-12-15] MEDS: Insulin LISPRO 300 UNITS/3 ML VIAL SUBQ SCH ×4 (07:58→20:48)
[2020-12-15] MEDS: Cholecalciferol (D-3) 1,000 UNIT (25MCG) TABLET PO SCH (07:59)
[2020-12-15] MEDS: Metoprolol XL (24 HR) Succ 50 MG TAB.ER.24H PO SCH ×2 (07:59→20:48)
[2020-12-15] MEDS: Aspirin Enteric Coated 81 MG Tablet PO SCH (07:59)
[2020-12-15] MEDS: BuPROPion SR (12 HR) 150 MG TABLET PO SCH ×2 (07:59→20:48)
[2020-12-15] MEDS: methIMAzole 5 MG TABLET PO SCH (07:59)
[2020-12-15] MEDS: Loratadine 10 MG TABLET PO SCH (07:59)
[2020-12-15] MEDS: lisinopriL 20 MG TABLET PO SCH (07:59)
[2020-12-15] MEDS: Finasteride 5 MG TABLET PO SCH (08:00)
[2020-12-15] MEDS: Isosorbide MONOnitrate (24 HR) 30 MG TAB.ER.24H PO SCH (08:00)
[2020-12-15] MEDS: Furosemide 20 MG/2 ML VIAL IVP SCH (08:00)
[2020-12-15] MEDS: Insulin DETEMIR 100 UNIT/ML X5UNITS SUBQ SCH ×2 (08:01→20:48)
[2020-12-15] MEDS: *HR* Rivaroxaban 10 MG TABLET PO SCH (17:09)
[2020-12-16] MEDS: *HR* Labetalol 20 MG/4 ML SYRINGE IVP PRN ×2 (00:40→16:40)
[2020-12-16 00:51] LABS: Basophils % 0.2 %; Eosinophils % 0.5 %; Hemoglobin 13.3 g/dL (12.9-16.9); Immature Granulocytes % 0.5 % (0-4); Lymphocytes # 0.8 K/mcL (0.6-4.6); Lymphocytes % 14.1 %; Mean Corpuscular HGB Conc 32.4 g/dL (31.6-35.5); Mean Corpuscular Hemoglobin 28.9 pg (28.0-33.3); Mean Corpuscular Volume 88.9 fL (83.0-100.0); Mean Platelet Volume 9.7 fL (9.4-12.4); Monocytes # 0.6 K/mcL (0.0-1.3); Monocytes % 9.7 %; Neutrophils # 4.5 K/mcL (1.6-8.9); Platelet Count 246 K/mcL (140-400); Red Blood Count 4.61 M/mcL (4.19-5.50); Red Cell Distribution Width 13.8 % (11.5-14.5)
[2020-12-16] MEDS: Morphine Sulfate Immed Rel 15 MG TABLET PO PRN ×2 (00:52→21:57)
[2020-12-16 01:12] LABS: BUN/Creatinine Ratio 27 (6-26); Blood Urea Nitrogen 34 mg/dL (8-23); Calcium 9.3 mg/dL (8.6-10.3); Carbon Dioxide 25 mEq/L (23-29); Chloride 102 mEq/L (98-107); Glucose 130 mg/dL (70-105); Osmolality,Calculated 289 (280-300); Potassium 4.8 mEq/L (3.5-5.1); Sodium 135 mEq/L (136-145); eGFR For African Americans > 60 (> 60); eGFR For Non-African Americans 57 (> 60)
[2020-12-16] MEDS: Aspirin Enteric Coated 81 MG Tablet PO SCH (07:43)
[2020-12-16] MEDS: Loratadine 10 MG TABLET PO SCH (07:43)
[2020-12-16] MEDS: methIMAzole 5 MG TABLET PO SCH (07:43)
[2020-12-16] MEDS: BuPROPion SR (12 HR) 150 MG TABLET PO SCH ×2 (07:43→21:55)
[2020-12-16] MEDS: Isosorbide MONOnitrate (24 HR) 30 MG TAB.ER.24H PO SCH (07:43)
[2020-12-16] MEDS: Cholecalciferol (D-3) 1,000 UNIT (25MCG) TABLET PO SCH (07:43)
[2020-12-16] MEDS: lisinopriL 20 MG TABLET PO SCH (07:44)
[2020-12-16] MEDS: Finasteride 5 MG TABLET PO SCH (07:44)
[2020-12-16] MEDS: Metoprolol XL (24 HR) Succ 50 MG TAB.ER.24H PO SCH ×2 (07:44→21:56)
[2020-12-16] MEDS: Furosemide 20 MG/2 ML VIAL IVP SCH ×2 (07:44→21:56)
[2020-12-16] MEDS: Insulin LISPRO 300 UNITS/3 ML VIAL SUBQ SCH ×4 (07:44→21:57)
[2020-12-16] MEDS: Insulin DETEMIR 100 UNIT/ML X5UNITS SUBQ SCH ×2 (07:44→21:56)
[2020-12-16] MEDS ORDERED: polyethylene glycoL 3350 17 GM POWD.PACK PO PRN (09:28)
[2020-12-16] MEDS: Budesonide/Formoterol 160/4.5 1 PUFF INH IH SCH ×2 (10:26→23:01)
[2020-12-16] MEDS: Tiotropium 10 INH DOSE IH SCH (10:27)
[2020-12-16] MEDS: *HR* Rivaroxaban 10 MG TABLET PO SCH (16:32)
[2020-12-17] MEDS: Cholecalciferol (D-3) 1,000 UNIT (25MCG) TABLET PO SCH (08:40)
[2020-12-17] MEDS: Aspirin Enteric Coated 81 MG Tablet PO SCH (08:40)
[2020-12-17] MEDS: Furosemide 20 MG/2 ML VIAL IVP SCH (08:40)
[2020-12-17] MEDS: Insulin LISPRO 300 UNITS/3 ML VIAL SUBQ SCH ×4 (08:40→21:02)
[2020-12-17] MEDS: Insulin DETEMIR 100 UNIT/ML X5UNITS SUBQ SCH ×2 (08:40→20:51)
[2020-12-17] MEDS: methIMAzole 5 MG TABLET PO SCH (08:40)
[2020-12-17] MEDS: Isosorbide MONOnitrate (24 HR) 30 MG TAB.ER.24H PO SCH (08:41)
[2020-12-17] MEDS: Metoprolol XL (24 HR) Succ 50 MG TAB.ER.24H PO SCH ×2 (08:41→20:50)
[2020-12-17] MEDS: Finasteride 5 MG TABLET PO SCH (08:41)
[2020-12-17] MEDS: Loratadine 10 MG TABLET PO SCH (08:41)
[2020-12-17] MEDS: BuPROPion SR (12 HR) 150 MG TABLET PO SCH ×2 (08:41→20:50)
[2020-12-17] MEDS: lisinopriL 20 MG TABLET PO SCH (08:41)
[2020-12-17] MEDS: Tiotropium 10 INH DOSE IH SCH (09:29)
[2020-12-17] MEDS: Budesonide/Formoterol 160/4.5 1 PUFF INH IH SCH ×2 (09:29→20:47)
[2020-12-17] MEDS ORDERED: lisinopriL 20 MG TABLET PO ONE (11:30)
[2020-12-17] MEDS: *HR* Rivaroxaban 10 MG TABLET PO SCH (16:41)
[2020-12-17] MEDS: Morphine Sulfate Immed Rel 15 MG TABLET PO PRN (21:05)
[2020-12-18] MEDS: Morphine Sulfate Immed Rel 15 MG TABLET PO PRN ×2 (03:41→19:21)
[2020-12-18] MEDS: Tiotropium 10 INH DOSE IH SCH (07:48)
[2020-12-18] MEDS: Budesonide/Formoterol 160/4.5 1 PUFF INH IH SCH ×2 (07:48→22:43)
[2020-12-18] MEDS: Insulin LISPRO 300 UNITS/3 ML VIAL SUBQ SCH ×4 (07:59→23:39)
[2020-12-18] MEDS: Isosorbide MONOnitrate (24 HR) 30 MG TAB.ER.24H PO SCH (08:30)
[2020-12-18] MEDS: BuPROPion SR (12 HR) 150 MG TABLET PO SCH ×2 (08:30→19:22)
[2020-12-18] MEDS: lisinopriL 20 MG TABLET PO SCH (08:30)
[2020-12-18] MEDS: Furosemide 40 MG TABLET PO SCH (08:30)
[2020-12-18] MEDS: Aspirin Enteric Coated 81 MG Tablet PO SCH (08:30)
[2020-12-18] MEDS: Cholecalciferol (D-3) 1,000 UNIT (25MCG) TABLET PO SCH (08:30)
[2020-12-18] MEDS: Metoprolol XL (24 HR) Succ 50 MG TAB.ER.24H PO SCH ×2 (08:30→19:22)
[2020-12-18] MEDS: Insulin DETEMIR 100 UNIT/ML X5UNITS SUBQ SCH ×2 (08:30→19:25)
[2020-12-18] MEDS: Loratadine 10 MG TABLET PO SCH (08:30)
[2020-12-18] MEDS: Finasteride 5 MG TABLET PO SCH (08:30)
[2020-12-18] MEDS: methIMAzole 5 MG TABLET PO SCH (08:30)
[2020-12-18] MEDS: *HR* Rivaroxaban 10 MG TABLET PO SCH (16:30)
[2020-12-19] MEDS: Morphine Sulfate Immed Rel 15 MG TABLET PO PRN ×3 (05:02→23:49)
[2020-12-19] MEDS: Budesonide/Formoterol 160/4.5 1 PUFF INH IH SCH ×2 (07:40→19:37)
[2020-12-19] MEDS: Tiotropium 10 INH DOSE IH SCH (07:40)
[2020-12-19] MEDS: Insulin LISPRO 300 UNITS/3 ML VIAL SUBQ SCH ×3 (09:43→17:02)
[2020-12-19] MEDS: Insulin DETEMIR 100 UNIT/ML X5UNITS SUBQ SCH ×2 (09:57→21:04)
[2020-12-19] MEDS: Cholecalciferol (D-3) 1,000 UNIT (25MCG) TABLET PO SCH (09:58)
[2020-12-19] MEDS: methIMAzole 5 MG TABLET PO SCH (09:58)
[2020-12-19] MEDS: Finasteride 5 MG TABLET PO SCH (09:58)
[2020-12-19] MEDS: lisinopriL 20 MG TABLET PO SCH (09:58)
[2020-12-19] MEDS: Aspirin Enteric Coated 81 MG Tablet PO SCH (09:58)
[2020-12-19] MEDS: Loratadine 10 MG TABLET PO SCH (09:59)
[2020-12-19] MEDS: Furosemide 40 MG TABLET PO SCH (09:59)
[2020-12-19] MEDS: Isosorbide MONOnitrate (24 HR) 30 MG TAB.ER.24H PO SCH (09:59)
[2020-12-19] MEDS: Metoprolol XL (24 HR) Succ 50 MG TAB.ER.24H PO SCH ×2 (09:59→21:03)
[2020-12-19] MEDS: BuPROPion SR (12 HR) 150 MG TABLET PO SCH ×2 (09:59→21:03)
[2020-12-19] MEDS: *HR* Rivaroxaban 10 MG TABLET PO SCH (17:02)
[2020-12-20 03:02] LABS: Basophils % 0.4 %; Eosinophils % 0.5 %; Hematocrit 41.7 % (37.5-50.1); Hemoglobin 13.4 g/dL (12.9-16.9); Immature Granulocytes % 1.1 % (0-4); Lymphocytes # 0.8 K/mcL (0.6-4.6); Lymphocytes % 10.6 %; Mean Corpuscular HGB Conc 32.1 g/dL (31.6-35.5); Mean Corpuscular Hemoglobin 28.9 pg (28.0-33.3); Mean Corpuscular Volume 89.9 fL (83.0-100.0); Mean Platelet Volume 9.3 fL (9.4-12.4); Monocytes # 0.5 K/mcL (0.0-1.3); Monocytes % 6.6 %; Neutrophils # 6.3 K/mcL (1.6-8.9); Platelet Count 305 K/mcL (140-400); Red Blood Count 4.64 M/mcL (4.19-5.50); Red Cell Distribution Width 13.9 % (11.5-14.5); Segmented Neutrophils % 80.8 %; White Blood Count 7.8 K/mcL (4.3-11.1)
[2020-12-20 03:26] LABS: BUN/Creatinine Ratio 28 (6-26); Blood Urea Nitrogen 37 mg/dL (8-23); Calcium 8.6 mg/dL (8.6-10.3); Carbon Dioxide 29 mEq/L (23-29); Chloride 102 mEq/L (98-107); Glucose 154 mg/dL (70-105); Osmolality,Calculated 296 (280-300); Potassium 4.4 mEq/L (3.5-5.1); Sodium 137 mEq/L (136-145); eGFR For African Americans > 60 (> 60); eGFR For Non-African Americans 54 (> 60)
[2020-12-20] MEDS: Tiotropium 10 INH DOSE IH SCH (07:35)
[2020-12-20] MEDS: Budesonide/Formoterol 160/4.5 1 PUFF INH IH SCH ×2 (07:35→22:40)
[2020-12-20] MEDS: Insulin LISPRO 300 UNITS/3 ML VIAL SUBQ SCH ×3 (07:40→17:54)
[2020-12-20] MEDS ORDERED: lisinopriL 20 MG TABLET PO SCH (09:00)
[2020-12-20] MEDS: Insulin DETEMIR 100 UNIT/ML X5UNITS SUBQ SCH ×2 (09:23→20:55)
[2020-12-20] MEDS: Cholecalciferol (D-3) 1,000 UNIT (25MCG) TABLET PO SCH (09:27)
[2020-12-20] MEDS: Finasteride 5 MG TABLET PO SCH (09:28)
[2020-12-20] MEDS: BuPROPion SR (12 HR) 150 MG TABLET PO SCH ×2 (09:28→20:56)
[2020-12-20] MEDS: methIMAzole 5 MG TABLET PO SCH (09:29)
[2020-12-20] MEDS: Loratadine 10 MG TABLET PO SCH (09:29)
[2020-12-20] MEDS: Isosorbide MONOnitrate (24 HR) 30 MG TAB.ER.24H PO SCH (09:29)
[2020-12-20] MEDS: Metoprolol XL (24 HR) Succ 50 MG TAB.ER.24H PO SCH ×2 (09:29→20:56)
[2020-12-20] MEDS: Furosemide 40 MG TABLET PO SCH (09:29)
[2020-12-20] MEDS: Aspirin Enteric Coated 81 MG Tablet PO SCH (09:29)
[2020-12-20] MEDS: Morphine Sulfate Immed Rel 15 MG TABLET PO PRN (09:36)
[2020-12-20] MEDS: *HR* Rivaroxaban 10 MG TABLET PO SCH (17:59)
[2020-12-21 03:43] LABS: Calcium 8.5 mg/dL (8.6-10.3); Potassium 4.3 mEq/L (3.5-5.1)
[2020-12-21] MEDS: Tiotropium 10 INH DOSE IH SCH (07:56)
[2020-12-21] MEDS: Budesonide/Formoterol 160/4.5 1 PUFF INH IH SCH (07:56)
[2020-12-21] MEDS: Insulin LISPRO 300 UNITS/3 ML VIAL SUBQ SCH ×3 (08:05→16:08)
[2020-12-21] MEDS: BuPROPion SR (12 HR) 150 MG TABLET PO SCH (08:26)
[2020-12-21] MEDS: Morphine Sulfate Immed Rel 15 MG TABLET PO PRN (08:26)
[2020-12-21] MEDS: Metoprolol XL (24 HR) Succ 50 MG TAB.ER.24H PO SCH (08:26)
[2020-12-21] MEDS: Loratadine 10 MG TABLET PO SCH (08:26)
[2020-12-21] MEDS: Finasteride 5 MG TABLET PO SCH (08:26)
[2020-12-21] MEDS: Isosorbide MONOnitrate (24 HR) 30 MG TAB.ER.24H PO SCH (08:26)
[2020-12-21] MEDS: Aspirin Enteric Coated 81 MG Tablet PO SCH (08:26)
[2020-12-21] MEDS: methIMAzole 5 MG TABLET PO SCH (08:26)
[2020-12-21] MEDS: Cholecalciferol (D-3) 1,000 UNIT (25MCG) TABLET PO SCH (08:26)
[2020-12-21] MEDS: Insulin DETEMIR 100 UNIT/ML X5UNITS SUBQ SCH (08:26)
[2020-12-21] MEDS ORDERED: Furosemide 20 MG TABLET PO SCH (09:00)
[2020-12-21 16:00] VITALS: BP 101/90
[2020-12-21] MEDS: *HR* Rivaroxaban 10 MG TABLET PO SCH (16:07)
== END 2020-12-21 18:19 | DRG 177 ==
LOC: 2NENU → SUATTDRO 19:22
PROVIDERS: ADMIT Internal Medicine; ATTEND Student in an Organized Health Care Education/Training Program

== ENCOUNTER 2021-01-28 04:09 | Observation (INO) ==
[2021-01-28] MEDS ORDERED: Acetaminophen 325 MG TABLET PO PRN (06:40)
[2021-01-28] MEDS ORDERED: Naloxone 0.4 MG/ML INJ IVP PRN (06:40)
[2021-01-28] MEDS ORDERED: Ondansetron 4 MG/2 ML VIAL IVP PRN (06:40)
[2021-01-28] MEDS ORDERED: Piperacillin/Tazobactam 3.375 GM in Water for inj. (sterile) 20 ML IVP ONE (10:44)
[2021-01-28] MEDS ORDERED: methylPREDNISolone 125 MG/2 ML VIAL IVP ONE (10:45)
[2021-01-28] MEDS ORDERED: Ipratropium/Albuterol Neb 3 ML IH PRN (10:52)
[2021-01-28] MEDS: Ipratropium/Albuterol Neb 3 ML IH SCH ×3 (11:11→22:43)
[2021-01-28] MEDS: Budesonide/Formoterol 160/4.5 1 PUFF INH IH SCH ×2 (11:13→22:43)
[2021-01-28] MEDS: Piperacillin/Tazobactam 3.375 GM in 0.9 % Sodium Chloride Mini Bag 100 ML IVPB SCH ×3 (11:17→23:46)
[2021-01-28] MEDS ORDERED: Azithromycin 250 MG TABLET PO ONE (11:39)
[2021-01-28] MEDS ORDERED: Nicotine 2 MG GUM BC PRN (11:41)
[2021-01-28 11:44] LABS: Mean Platelet Volume 9.2 fL (9.4-12.4); Red Cell Distribution Width 15.7 % (11.5-14.5)
[2021-01-28] MEDS ORDERED: Dextrose Gel 15 GM/37.5 ML TUBE PO PRN ×2 (11:46)
[2021-01-28] MEDS ORDERED: D5% in Water 1,000 ML IVC PRN (11:46)
[2021-01-28] MEDS ORDERED: *HR* Dextrose 50 % in Water (Vial) 50 ML VIAL IVP PRN (11:46)
[2021-01-28 11:53] LABS: Hematocrit 33.2 % (37.5-50.1); Hemoglobin 10.3 g/dL (12.9-16.9); Mean Corpuscular Hemoglobin 29.3 pg (28.0-33.3); Mean Corpuscular Volume 94.6 fL (83.0-100.0); Platelet Count 200 K/mcL (140-400); Red Blood Count 3.51 M/mcL (4.19-5.50); White Blood Count 5.8 K/mcL (4.3-11.1)
[2021-01-28 12:05] LABS: BUN/Creatinine Ratio 16 (6-26); Blood Urea Nitrogen 15 mg/dL (8-23); Calcium 8.3 mg/dL (8.6-10.3); Carbon Dioxide 25 mEq/L (23-29); Chloride 107 mEq/L (98-107); Glucose 65 mg/dL (70-105); Magnesium 1.9 mg/dL (1.6-2.6); Osmolality,Calculated 285 (280-300); Potassium 3.2 mEq/L (3.5-5.1); Sodium 138 mEq/L (136-145); eGFR For African Americans > 60 (> 60); eGFR For Non-African Americans > 60 (> 60)
[2021-01-28] MEDS: Insulin LISPRO 300 UNITS/3 ML VIAL SUBQ SCH ×3 (12:36→21:10)
[2021-01-28] MEDS: Nicotine 14 MG PATCH.TD24 TD SCH (12:38)
[2021-01-28] MEDS: Metoprolol XL (24 HR) Succ 25 MG TAB.ER.24H PO SCH (21:02)
[2021-01-28] MEDS: Insulin DETEMIR 100 UNIT/ML X5UNITS SUBQ SCH (21:03)
[2021-01-29] MEDS: Ipratropium/Albuterol Neb 3 ML IH SCH ×4 (04:03→22:55)
[2021-01-29] MEDS ORDERED: amLODIPine 5 MG TABLET PO SCH (09:00)
[2021-01-29] MEDS: Isosorbide MONOnitrate (24 HR) 30 MG TAB.ER.24H PO SCH (09:19)
[2021-01-29] MEDS: Aspirin Enteric Coated 81 MG Tablet PO SCH (09:20)
[2021-01-29] MEDS: predniSONE 20 MG TABLET PO SCH (09:20)
[2021-01-29] MEDS: Finasteride 5 MG TABLET PO SCH (09:21)
[2021-01-29] MEDS: amLODIPine 5 MG TABLET PO SCH (09:21)
[2021-01-29] MEDS: Metoprolol XL (24 HR) Succ 25 MG TAB.ER.24H PO SCH ×2 (09:21→20:34)
[2021-01-29] MEDS: Lactobacillus 1 EACH CAP.SPRINK PO SCH ×2 (09:21→20:34)
[2021-01-29] MEDS: Azithromycin 250 MG TABLET PO SCH (09:21)
[2021-01-29] MEDS: lisinopriL 20 MG TABLET PO SCH (09:22)
[2021-01-29] MEDS: Insulin LISPRO 300 UNITS/3 ML VIAL SUBQ SCH ×4 (09:22→20:35)
[2021-01-29] MEDS: Insulin DETEMIR 100 UNIT/ML X5UNITS SUBQ SCH ×2 (09:36→20:35)
[2021-01-29 09:43] LABS: Basophils % 0.1 %; Eosinophils % 0.1 %; Hematocrit 34.4 % (37.5-50.1); Hemoglobin 10.9 g/dL (12.9-16.9); Immature Granulocytes % 0.4 % (0-4); Lymphocytes % 12.1 %; Mean Corpuscular HGB Conc 31.7 g/dL (31.6-35.5); Mean Corpuscular Hemoglobin 29.8 pg (28.0-33.3); Mean Platelet Volume 9.2 fL (9.4-12.4); Monocytes # 0.7 K/mcL (0.0-1.3); Monocytes % 8.4 %; Neutrophils # 6.4 K/mcL (1.6-8.9); Platelet Count 230 K/mcL (140-400); Red Blood Count 3.66 M/mcL (4.19-5.50); Red Cell Distribution Width 15.8 % (11.5-14.5); Segmented Neutrophils % 78.9 %; White Blood Count 8.1 K/mcL (4.3-11.1)
[2021-01-29 10:08] LABS: BUN/Creatinine Ratio 16 (6-26); Blood Urea Nitrogen 17 mg/dL (8-23); Calcium 8.5 mg/dL (8.6-10.3); Carbon Dioxide 26 mEq/L (23-29); Chloride 106 mEq/L (98-107); Glucose 110 mg/dL (70-105); Magnesium 2.1 mg/dL (1.6-2.6); Osmolality,Calculated 290 (280-300); Phosphorous 1.9 mg/dL (2.7-4.5); Potassium 3.5 mEq/L (3.5-5.1); Sodium 139 mEq/L (136-145); eGFR For African Americans > 60 (> 60); eGFR For Non-African Americans > 60 (> 60)
[2021-01-29] MEDS: Budesonide/Formoterol 160/4.5 1 PUFF INH IH SCH ×2 (10:21→22:55)
[2021-01-29] MEDS: Nicotine 14 MG PATCH.TD24 TD SCH (12:25)
[2021-01-29] MEDS ORDERED: Calcium Gluconate 1gm/50mL 1 GM/50 ML BAG IVPB SCH (13:30)
[2021-01-29] MEDS: *HR* OxyCODONE Immed Rel 5 MG TABLET PO PRN ×2 (16:04→20:35)
[2021-01-30] MEDS: *HR* OxyCODONE Immed Rel 5 MG TABLET PO PRN ×4 (03:48→20:31)
[2021-01-30] MEDS: Ipratropium/Albuterol Neb 3 ML IH SCH ×4 (03:53→22:34)
[2021-01-30 04:01] LABS: Hematocrit 31.8 % (37.5-50.1); Mean Corpuscular HGB Conc 31.4 g/dL (31.6-35.5); Mean Corpuscular Hemoglobin 29.6 pg (28.0-33.3); Mean Corpuscular Volume 94.1 fL (83.0-100.0); Mean Platelet Volume 9.1 fL (9.4-12.4); Platelet Count 234 K/mcL (140-400); Red Blood Count 3.38 M/mcL (4.19-5.50); Red Cell Distribution Width 15.8 % (11.5-14.5); White Blood Count 8.2 K/mcL (4.3-11.1)
[2021-01-30 04:15] LABS: BUN/Creatinine Ratio 20 (6-26); Blood Urea Nitrogen 19 mg/dL (8-23); Calcium 8.3 mg/dL (8.6-10.3); Carbon Dioxide 26 mEq/L (23-29); Chloride 106 mEq/L (98-107); Glucose 170 mg/dL (70-105); Magnesium 2.1 mg/dL (1.6-2.6); Osmolality,Calculated 290 (280-300); Phosphorous 2.6 mg/dL (2.7-4.5); Sodium 137 mEq/L (136-145); eGFR For African Americans > 60 (> 60); eGFR For Non-African Americans > 60 (> 60)
[2021-01-30] MEDS: Insulin LISPRO 300 UNITS/3 ML VIAL SUBQ SCH ×4 (07:27→20:31)
[2021-01-30] MEDS: Aspirin Enteric Coated 81 MG Tablet PO SCH (07:38)
[2021-01-30] MEDS: Lactobacillus 1 EACH CAP.SPRINK PO SCH ×2 (07:38→20:30)
[2021-01-30] MEDS: Isosorbide MONOnitrate (24 HR) 30 MG TAB.ER.24H PO SCH (07:38)
[2021-01-30] MEDS: Finasteride 5 MG TABLET PO SCH (07:38)
[2021-01-30] MEDS: lisinopriL 20 MG TABLET PO SCH (07:39)
[2021-01-30] MEDS: Azithromycin 250 MG TABLET PO SCH (07:39)
[2021-01-30] MEDS: Metoprolol XL (24 HR) Succ 25 MG TAB.ER.24H PO SCH ×2 (07:39→20:31)
[2021-01-30] MEDS: amLODIPine 5 MG TABLET PO SCH (07:39)
[2021-01-30] MEDS: predniSONE 20 MG TABLET PO SCH (07:40)
[2021-01-30] MEDS: Budesonide/Formoterol 160/4.5 1 PUFF INH IH SCH ×2 (10:38→22:34)
[2021-01-30] MEDS: Nicotine 14 MG PATCH.TD24 TD SCH (11:08)
[2021-01-30] MEDS: Calcium Gluconate 1gm/50mL 1 GM/50 ML BAG IVPB SCH ×2 (11:08→12:49)
[2021-01-30] MEDS: Insulin DETEMIR 100 UNIT/ML X5UNITS SUBQ SCH ×2 (11:20→20:30)
[2021-01-30 14:41] LABS: Hematocrit 33.5 % (37.5-50.1); Hemoglobin 10.5 g/dL (12.9-16.9)
[2021-01-30 15:11] LABS: Iron 31 mcg/dL (65-175)
[2021-01-30 15:21] LABS: Ferritin 76 ng/mL (20-250)
[2021-01-30 15:27] LABS: Folate 7.7 ng/mL (3.0-16.0)
[2021-01-30 16:05] LABS: % Iron Saturation 8 % (20-55); Transferrin 262 mg/dL (203-362)
[2021-01-30] MEDS ORDERED: *HR* Rivaroxaban 10 MG TABLET PO SCH (17:00)
[2021-01-30] MEDS: Furosemide 20 MG TABLET PO SCH (17:41)
[2021-01-30] MEDS: Benzonatate 100 MG CAPSULE PO PRN (17:41)
[2021-01-30] MEDS ORDERED: Melatonin 3 MG TABLET PO PRN (23:26)
[2021-01-31] MEDS: Ipratropium/Albuterol Neb 3 ML IH SCH ×3 (03:09→16:10)
[2021-01-31 04:00] LABS: Estimated Average Glucose 154 mg/dl
[2021-01-31 04:04] LABS: Hematocrit 32.6 % (37.5-50.1); Hemoglobin 10.3 g/dL (12.9-16.9); Mean Corpuscular HGB Conc 31.6 g/dL (31.6-35.5); Mean Corpuscular Hemoglobin 29.1 pg (28.0-33.3); Mean Corpuscular Volume 92.1 fL (83.0-100.0); Mean Platelet Volume 8.7 fL (9.4-12.4); Platelet Count 252 K/mcL (140-400); Red Blood Count 3.54 M/mcL (4.19-5.50); Red Cell Distribution Width 15.6 % (11.5-14.5); White Blood Count 8.9 K/mcL (4.3-11.1)
[2021-01-31 04:18] LABS: BUN/Creatinine Ratio 19 (6-26); Blood Urea Nitrogen 21 mg/dL (8-23); Calcium 8.6 mg/dL (8.6-10.3); Carbon Dioxide 27 mEq/L (23-29); Chloride 103 mEq/L (98-107); Glucose 174 mg/dL (70-105); Osmolality,Calculated 289 (280-300); Phosphorous 3.7 mg/dL (2.7-4.5); Potassium 4.4 mEq/L (3.5-5.1); Sodium 136 mEq/L (136-145); eGFR For African Americans > 60 (> 60); eGFR For Non-African Americans > 60 (> 60)
[2021-01-31] MEDS: Insulin LISPRO 300 UNITS/3 ML VIAL SUBQ SCH ×2 (08:21→11:54)
[2021-01-31] MEDS: Isosorbide MONOnitrate (24 HR) 30 MG TAB.ER.24H PO SCH (08:24)
[2021-01-31] MEDS: Lactobacillus 1 EACH CAP.SPRINK PO SCH (08:24)
[2021-01-31] MEDS: Azithromycin 250 MG TABLET PO SCH (08:24)
[2021-01-31] MEDS: amLODIPine 5 MG TABLET PO SCH (08:25)
[2021-01-31] MEDS: Benzonatate 100 MG CAPSULE PO PRN (08:25)
[2021-01-31] MEDS: Furosemide 20 MG TABLET PO SCH (08:26)
[2021-01-31] MEDS: Aspirin Enteric Coated 81 MG Tablet PO SCH (08:26)
[2021-01-31] MEDS: predniSONE 20 MG TABLET PO SCH (08:26)
[2021-01-31] MEDS: Metoprolol XL (24 HR) Succ 25 MG TAB.ER.24H PO SCH (08:26)
[2021-01-31] MEDS: lisinopriL 20 MG TABLET PO SCH (08:27)
[2021-01-31] MEDS: Finasteride 5 MG TABLET PO SCH (08:28)
[2021-01-31] MEDS: Insulin DETEMIR 100 UNIT/ML X5UNITS SUBQ SCH (08:30)
[2021-01-31] MEDS ORDERED: Multivit/Ca/Min/Fe/FA 1 TAB TABLET PO SCH (09:00)
[2021-01-31] MEDS ORDERED: hydroCHLOROthiazide 25 MG TABLET PO SCH (09:00)
[2021-01-31] MEDS: Budesonide/Formoterol 160/4.5 1 PUFF INH IH SCH (10:47)
[2021-01-31] MEDS: Nicotine 14 MG PATCH.TD24 TD SCH (10:49)
[2021-01-31 11:21] VITALS: BP 168/68
== END 2021-01-31 16:10 | disposition home health service (06) ==
LOC: 3ANU → SUATTDRO 06:09
PROVIDERS: ADMIT Internal Medicine; ATTEND Family Medicine